=== PATIENT | female | born 1950 | race Caucasian/White ===

== ENCOUNTER → 2017-04-09 | Outpatient (CLI) | payer MEDICARE ==
[~2017-04-09] MED LIST: ACLI400A2 IH; ALBU8.5H2 IH; ALBUTEROL; ALPR1TAB2 PO; AMLO1TAB3; AMLO5TAB2 PO; AMPI500C9 PO; ARIP5TAB12 PO; ASP325T PO; ASP81CT; ATR20T PO; BUPR300T PO; CALC-80 PO; CALCIUM; CANA100T PO; CANA300T PO; CARV12.52 PO; CARV6.252 PO; CEFU250T PO; CLCX200C PO; CYCL10TA9; CYCL10TA9 PO; DEPLIN; DIAZ10TA3 PO; DIAZEPAM; DULO60CA6; DULO60CA6 PO; EST45C VG; FERR-57 PO; FISH OIL; FLUO40CA PO; FLUT1DIS26; FURO40TA4 PO; HYDR-2962 PO; HYDR-3820 PO; HYDROCODONE; IRB150T; LEVO175T6; LIRA0.6P SQ; LNS30CCR; LORA10TA7 PO; METH500T35 PO; MMT17NA; MTF500T PO; MULT1TAB12 PO; MULTIVITAMIN; MUPI22OI TP; OMEG-12 PO; PHEN-640 PO; PNT40TEC PO; POTA20TA15 PO; PRD20T PO; PREG100C22; PREG50C PO; PROP40TA5 PO; SAXA1TBM3 PO; SCR1T1; SULF1TAB35 PO; VALS320T8 PO
--- NOTE | 2017-04-09 10:52 | Diagnostic Imaging Report ---
INDICATION: Wheezing and cough. PA and lateral chest obtained at 1043 hours a.m. and compared to 03/26/2011. Heart and mediastinal silhouette are normal in appearance. The lungs are clear. There is no pneumothorax or pleural fluid. IMPRESSION: No acute process in the chest. Dictated by: Dictated on workstation # [id number]
== END ==
LOC: RAD 10:10
PROVIDERS: ATTEND Family Medicine
DX: R05 Cough (principal); R06.00 Dyspnea, unspecified
CPT/HCPCS: 71020

== ENCOUNTER 2017-07-22 17:01 | Inpatient (IN) | payer MEDICARE ==
[~2017-07-22] VITALS: Ht 167.6 cm; Wt 121.1 kg
[~2017-07-22 17:01] MED LIST changes: -ACLI400A2 IH; +ACLI400A2 INH; +RT-ALBUTEROL SULF 2.5 MG/3 ML PRE-MIX VIAL ONE
[2017-07-22] MEDS ORDERED: NS IV 500 ML 500 ML IV ONE (17:05)
[2017-07-22] MEDS ORDERED: RT-ALBUTEROL SULF 2.5 MG/3 ML PRE-MIX VIAL INH STA (17:05)
[2017-07-22] MEDS ORDERED: AZITHROMYCIN INJECTION 500 MG in NS (IVPB) 250 ML IV ONE (17:15)
--- NOTE | 2017-07-22 17:17 | ED Respiratory ---
General Stated Complaint: SOA Source: patient, EMS Exam Limitations: no limitations (ORLANDO ASHRAF) History of Present Illness Time seen by provider: 17:00 Initial Comments Patient presents to ER by EMS and EMS gives a history that they picked the patient up she was having difficulty breathing. They gave her a DuoNeb attempted multiple times for IV access and were unsuccessful. The patient was getting an entitle CO2 of 68 initially but improved down to 48 on route after getting the DuoNeb and oxygen. Patient uses 3 L nasal cannula at home and this is what she was transported in the low to mid 90s sats on. Patient was at her doctor's office today and received a flu shot. She says for the past 1-2 days she is progressively been feeling worse with shortness of air and malaise. She says she's been chilling like she is cold and no documented fevers. She denies any chest pain but is short of breath. She denies nausea, vomiting, diarrhea, constipation, rash, travel outside the [facility], sick contacts. She says she recently had her blood pressure medicine changed discontinue the Diovan but not changing her Coreg. She does not ever what medication replace the Diovan. She wears O2 at 3 L/m at home. (ORLANDO ASHRAF) Allergies and Home Medications Allergies Coded Allergies: No Known Drug Allergies (Verified , 05/08/09) Home Medications Aclidinium [place] 400 Mcg Aer.pow.ba, 400 MCG IH BID, (Reported) Albuterol 8.5 Gm Hfa.aer.ad, 2 PUFF IH q4hrs. prn, (Reported) 2 PUFFS Alprazolam 1 Mg Tablet, 1 MG PO TID, (Reported) Ampicillin Trihydrate 500 Mg Capsule, 500 MG PO QID, (Reported) Aripiprazole 5 Mg Tablet, 10 MG PO DAILY, (Reported) Aspirin 325 Mg Tab, 81 MG PO DAILY, (Reported) Atorvastatin 20 Mg Tablet, 20 MG PO HS, (Reported) Calcium Carbonate/Vitamin D3 1 Each Tablet, 600 MG PO BID, (Reported) Canagliflozin 300 Mg Tablet, 300 MG PO DAILY, (Reported) Carvedilol 12.5 Mg Tablet, 1 TAB PO BID, (Reported) Cefuroxime Axetil 250 Mg Tablet, 250 MG PO Q12H, #20 Ref 0 Prescribed by: LINDA ORELLANA on 05/06/15848 Celecoxib 200 Mg Capsule, 200 MG PO BID, (Reported) Duloxetine Hcl 60 Mg Capsule.dr, 60 MG PO BID, (Reported) Fluticasone/Salmeterol 1 Disk Inhp, 2 PUFF BID, (Reported) Furosemide 40 Mg Tablet, 40 MG PO every other day, (Reported) Hydrocodone/Acetaminophen 1 Each Tablet, 1 EACH PO QID PRN for PAIN, (Reported) Levothyroxine Sodium 175 Mcg Tablet, 150 MCG DAILY, (Reported) Liraglutide 0.6 Mg/0.1 Ml Pen.injctr, 1.8 MG SQ DAILY, (Reported) Multivitamins W-Minerals 1 Each Tablet, 1 EACH PO DAILY, (Reported) [place]-3/Dha/Epa/Fish Oil 1 Each Capsule.dr, 1,000 MG PO DAILY, (Reported) Pantoprazole Sodium 40 Mg Tablet.dr, 40 MG PO BID, #30 (Reported) Phenazopyridine HCl 200 Mg Tablet, 1 CAP PO Q8H, #5 Ref 0 Prescribed by: LINDA ORELLANA on 05/06/15848 Potassium Chloride 20 Meq Tab.prt.sr, 20 MEQ PO, (Reported) 3 TABS every other day with lasix Saxagliptin Hcl/Metformin Hcl 1 Each Tbmp.24hr, 1 EACH PO DAILY, (Reported) Sucralfate 1 Gm Tab, 1 GM BID, (Reported) Valsartan 320 Mg Tablet, 320 MG PO DAILY, (Reported) Constitutional: chills, No fever, malaise EENTM: No ear pain, No eye pain Respiratory: cough, dyspnea on exertion, No hemoptysis, No phlegm, short of breath, No stridor, wheezing Cardiovascular: No chest pain, No palpitations Gastrointestinal: No abdominal pain, No constipation, No diarrhea, No nausea, No vomiting Genitourinary: No discharge, No dysuria : No Musculoskeletal: No back pain, No joint pain Skin: No pruritus, No rash Psychiatric/Neurological: Denies Headache, Denies Numbness, Denies Paresthesia ([place] ASHRAF) Past Nxcntqu-Bjmotw-Nyodip Hx Patient Social History Alcohol Use: Denies Use Recreational Drug Use: No Smoking Status: Current Everyday Smoker Type Used: Cigarettes (0.5 ppd) (ORLANDO ASHRAF) Immunizations Up To Date Date of Pneumonia Vaccine: Dec 22, 2011 Date of Influenza Vaccine: Jul 23, 2013 (OR[place]O ASHRAF) Seasonal Allergies Seasonal Allergies: Yes (OR[place]O ASHRAF) Surgeries Surgeries: 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, Tonsillectomy, Tubal Ligation ([place]O ASHRAF) Respiratory Respiratory Disorders: Asthma, COPD (OR[place]O ASHRAF) Cardiovascular Cardiac Disorders: Hypertension ([place] ASHRAF) Gastrointestinal Gastrointestinal Disorders: Gastroesophageal Reflux, Hiatal Hernia ([place]O ASHRAF) Musculoskeletal Musculoskeletal Disorders: Degenerate Disk Disease, Arthritis, Fibromyalgia, Rheumatoid Arthritis, Chronic Back Pain (ORLANDO ASHRAF) Endocrine Endocrine Disorders: Hypothyroidsim, Diabetes, Non-Insulin dep (OR[place]O ASHRAF) Psychosocial Behavioral Health Disorders: Anxiety, Depression (ORLANDO ASHRAF) Family Medical History Significant Family History: No Pertinent Family Hx Family Medial History: Patient reports no known family medical history. ([place]O ASHRAF) Family Medial History: Patient reports no known family medical history. (LAKESHA WANG MD) Physical Exam Vital Signs Vital Sign - Last 12Hours 07/22/17 17:25 Pulse Ox 90 O2 Delivery Nasal Cannula O2 Flow Rate 3.00 (LAKESHA WANG MD) Vital Signs Capillary Refill : ([place] ASHRAF) General Appearance: moderate distress, obese Eyes: Bilateral Eye Normal Inspection, Bilateral Eye PERRL, Bilateral Eye EOMI HEENT: PERRL/EOMI, normal ENT inspection, pharynx normal Neck: non-tender, normal inspection Respiratory: chest non-tender, respiratory distress (moderate), accessory muscle use, wheezing (audible bilateral diffuse), expiration Cardiovascular: normal peripheral pulses, regular rate, rhythm, other (legs wrapped for chronic lymphedema) Gastrointestinal: normal bowel sounds, non tender, soft Extremities: normal capillary refill, No calf tenderness, swelling, other ( wrapped for lymphedema) Neurologic/Psychiatric: alert, normal mood/affect, oriented x 3 Skin: normal color, warm/dry ([place] ASHRAF) Focused Exam Evaluation Lactate Level Laboratory Tests 07/22/17 18:00: Lactic Acid Level 1.82 (LAKESHA WANG MD) Lactic Acid Level Laboratory Tests Test 07/22/17 18:00 Lactic Acid Level 1.82 MMOL/L (0.50-2.00) (LAKESHA WANG MD) Progress/Results/Core Measures Results/Orders Lab Results Laboratory Tests Test 07/22/17 17:10 07/22/17 18:00 Range/Units White Blood Count 15.2 H 4.3-11.0 10^3/uL Red Blood Count 5.33 4.35-5.85 10^6/uL Hemoglobin 13.5 11.5-16.0 G/DL Hematocrit 42 35-52 % Mean Corpuscular Volume 79 L 80-99 FL Mean Corpuscular Hemoglobin 25 25-34 PG Mean Corpuscular Hemoglobin Concent 32 32-36 G/DL Red Cell Distribution Width 21.3 H 10.0-14.5 % Platelet Count 237 130-400 10^3/uL Mean Platelet Volume 10.4 7.4-10.4 FL Neutrophils (%) (Auto) 85 H 42-75 % Lymphocytes (%) (Auto) 8 L 12-44 % Monocytes (%) (Auto) 6 0-12 % Eosinophils (%) (Auto) 1 0-10 % Basophils (%) (Auto) 0 0-10 % Neutrophils # (Auto) 12.9 H 1.8-7.8 X 10^3 Lymphocytes # (Auto) 1.2 1.0-4.0 X 10^3 Monocytes # (Auto) 0.9 0.0-1.0 X 10^3 Eosinophils # (Auto) 0.2 0.0-0.3 10^3/uL Basophils # (Auto) 0.1 0.0-0.1 10^3/uL Neutrophils % (Manual) 87 % Lymphocytes % (Manual) 6 % Monocytes % (Manual) 0 % Eosinophils % (Manual) 1 % Basophils % (Manual) 0 % Band Neutrophils 6 % Anisocytosis SLIGHT Microcytosis SLIGHT Prothrombin Time 12.2 12.2-14.7 SEC INR Comment 0.9 0.8-1.4 Activated Partial Thromboplast Time 30 24-35 SEC D-Dimer 0.72 H 0.00-0.49 UG/ML Blood Gas Puncture Site LEFT RADIAL Blood Gas Patient Temperature 101.4 Arterial Blood pH 7.37 7.37-7.43 Arterial Blood Partial Pressure CO2 48 H 35-45 MMHG Arterial Blood Partial Pressure O2 63 L 79-93 MMHG Arterial Blood HCO3 27 23-27 MMOL/L Arterial Blood Total CO2 27.8 21.0-31.0 MMOL/L Arterial Blood Oxygen Saturation 90 L 94-100 % Arterial Blood Base Excess 2.0 -2.5-2.5 MMOL/L Jovanny Test POSITIVE Blood Gas Ventilator Setting NO Blood Gas Inspired Oxygen 3L B-Type Natriuretic Peptide 23.2 <100.0 PG/ML Group A Streptococcus Screen NEGATIVE NEGATIVE Sodium Level 134 L 135-145 MMOL/L Potassium Level 4.7 3.6-5.0 MMOL/L Chloride Level 97 L 98-107 MMOL/L Carbon Dioxide Level 25 21-32 MMOL/L Anion Gap 12 5-14 MMOL/L Blood Urea Nitrogen 12 7-18 MG/DL Creatinine 0.92 0.60-1.30 MG/DL Estimat Glomerular Filtration Rate > 60 BUN/Creatinine Ratio 13 Glucose Level 145 H 70-105 MG/DL Lactic Acid Level 1.82 0.50-2.00 MMOL/L Calcium Level 9.5 8.5-10.1 MG/DL Magnesium Level 1.8 1.8-2.4 MG/DL Total Bilirubin 0.7 0.1-1.0 MG/DL Aspartate Amino Transf (AST/SGOT) 16 5-34 U/L Alanine Aminotransferase (ALT/SGPT) 15 0-55 U/L Alkaline Phosphatase 108 40-136 U/L Troponin I < 0.30 <0.30 NG/ML C-Reactive Protein High Sensitivity 1.38 H 0.00-0.50 MG/DL Total Protein 7.5 6.4-8.2 GM/DL Albumin 4.2 3.2-4.5 GM/DL (LAKESHA WANG MD) Micro Results Microbiology 07/22/17 Influenza Types A,B Antigen (SUMAN) - Final, Complete (LAKESHA WANG MD) My Orders Orders - LAKESHA WANG MD Ceftriaxone Injection (Rocephin Injectio (07/22/17 18:45) (LAKESHA WANG MD) Medications Given in ED Current Medications Medications Dose Ordered Sig/Cameron Route Start Time Stop Time Status Last Admin Dose Admin Acetaminophen 1,000 mg ONCE ONCE PO 07/22/17 17:30 07/22/17 17:31 DC 07/22/17 17:15 1,000 MG Albuterol Sulfate 2.5 mg STK-MED ONCE .ROUTE 07/22/17 16:57 07/22/17 17:06 DC 07/22/17 17:12 5 MG Sodium Chloride 500 ml @ 0 mls/hr Q0M ONCE IV 07/22/17 17:05 07/22/17 17:12 DC 07/22/17 17:15 500 MLS/HR (LAKESHA WANG MD) Vital Signs/I&O Vital Sign - Last 12Hours 07/22/17 07/22/17 17:25 17:32 Pulse Ox 90 97 O2 Delivery Nasal Cannula Nasal Cannula O2 Flow Rate 3.00 4.00 (LAKESHA WANG MD) Progress Note #1: Time: 17:21 Progress Note COPD versus pneumonia. Her temperature we'll prompt us to do a influenza and strep as well as sepsis workup. We'll start with azithromycin idea were treating probably add something like Rocephin. We'll get an ABG as of now her end-tidal CO2 was in the low 40s so she is probably doing okay without CPAP while awake. She is improving breath sounds on the albuterol. We will hold off giving steroids in case there is an overt pneumonia. We'll start her with a liter of normal saline to help with tachycardia. We'll get a BMP just to make sure she is not fluid overloaded but she appears clinically dry despite the chronic lymphedema. ABG shows mild CO2 retention 48 with out acidemia or metabolic compensation. PO2 is only 60 so it is more likely this is pneumonia than COPD so we'll hold off the steroids and increase her oxygen to 4 L nasal cannula above her baseline of 3 L nasal cannula. Progress Note #2: Time: 18:08 Progress Note Care transitioned to Dr. Wang. Patient's wheezing has improved greatly after 10 mg of albuterol however she does have crackles on the left lower lobe. The left lower lobe and the x-ray is obscured by body habitus and poor inspiratory effort. Patient says she feels a little better but still very dizzy. Her heart rate is still tachycardic so we will going give her another bolus liter of fluids for a total of 1500 MLS. (OR[place]O ASHRAF) ECG Initial ECG Impression Date: Jul 22, 2017 Initial ECG Impression Time: 17:21 Initial ECG Rate: 117 Initial ECG Rhythm: S.Tach Initial ECG Intervals: Normal Initial ECG Impression: Normal Initial ECG Comparisson: No Previous ECG Available Comment Sinus tachycardia with no T-wave elevation or depression. (OR[place]O ASHRAF) Diagnostic Imaging Diagonstic Imaging: Xray Plain Films/CT/US/NM/MRI: chest (1 view) Comments Poor respiratory effort. Left lower lobe obscured. Reviewed: Reviewed by Me (ORLANDO ASHRAF) Transfer of Care Transfer of Care Time: 18:05 Care transferred to: [facility] (OR[place] ASHRAF) Departure Communication (Admissions) Progress Notes The patient is a 66-year-old female transferred to care at [address] Ashraf. Her complaints had been shortness of breath. She had had a fever at home. She was queasy but responded to nebulizer treatments here. White count was 15,000. Chest x-ray showed central congestion or edema. Spoke to Dr. KAUFMAN at 1835. The patient will be admitted to the floor in observation status (LAKESHA WANG MD) Impression Impression: Primary Impression: pneumonia Disposition: ADMITTED INPATIENT Condition: Stable/Unchanged Admissions Decision to Admit Reason: Admit from ER (General) Decision to Admit/Date: Jul 22, 2017 Time/Decision to Admit Time: 18:52 (LAKESHA WANG MD) Departure-Patient Inst. Referrals: JUDITH KAUFMAN DO (PCP/Family) Primary Care Physician [place] ASHRAF Jul 22, 2017 17:17 LAKESHA WANG MD Jul 22, 2017 18:53
[2017-07-22 17:19] LABS: ABG HCO3 27 MMOL/L (23-27); ABG OXYGEN SATURATION 90 % (94-100); ABG PCO2 48 MMHG (35-45); ABG PH 7.37 (7.37-7.43); ABG PO2 63 MMHG (79-93); ABG TCO2 27.8 MMOL/L (21.0-31.0)
[2017-07-22 17:22] LABS: ALLENS TEST POSITIVE; BASOPHILS # (AUTO) 0.1 10^3/uL (0.0-0.1); BASOPHILS % (AUTO) 0 % (0-10); EOSINOPHILS # (AUTO) 0.2 10^3/uL (0.0-0.3); EOSINOPHILS % (AUTO) 1 % (0-10); LYMPHOCYTES # (AUTO) 1.2 X 10^3 (1.0-4.0); LYMPHOCYTES % (AUTO) 8 % (12-44); MEAN CORPUSCULAR HEMOGLOBIN 25 PG (25-34); MEAN CORPUSCULAR HGB CONC 32 G/DL (32-36); MEAN CORPUSCULAR VOLUME 79 FL (80-99); MEAN PLATELET VOLUME 10.4 FL (7.4-10.4); MONOCYTES # (AUTO) 0.9 X 10^3 (0.0-1.0); MONOCYTES % (AUTO) 6 % (0-12); NEUTROPHILS # (AUTO) 12.9 X 10^3 (1.8-7.8); NEUTROPHILS % (AUTO) 85 % (42-75); PATIENT TEMP 101.4; PLATELET COUNT 237 10^3/uL (130-400); RED BLOOD COUNT 5.33 10^6/uL (4.35-5.85); RED CELL DISTRIBUTION WIDTH 21.3 % (10.0-14.5); WHITE BLOOD COUNT 15.2 10^3/uL (4.3-11.0)
[2017-07-22] MEDS ORDERED: RT-ALBUTEROL SULF 2.5 MG/3 ML PRE-MIX VIAL IH STA (17:27)
[2017-07-22] MEDS ORDERED: ACETAMINOPHEN 500 MG TAB (TYLENOL) PO ONE (17:30)
[2017-07-22 17:51] LABS: BAND NEUTROPHILS 6 %; BASOPHILS % (MANUAL) 0 %; EOSINOPHILS % (MANUAL) 1 %; INR 0.9 (0.8-1.4); LYMPHOCYTES % (MANUAL) 6 %; NEUTROPHILS % (MANUAL) 87 %; PROTHROMBIN TIME PATIENT 12.2 SEC (12.2-14.7)
[2017-07-22 17:52] LABS: ANISOCYTOSIS SLIGHT; MICROCYTOSIS SLIGHT
--- NOTE | 2017-07-22 18:03 | Diagnostic Imaging Report ---
INDICATION: Shortness of air and cough. FINDINGS: Portable upright view of the chest demonstrates interval development of central pulmonary edema and congestion. The heart size is upper normal. No effusions are seen. IMPRESSION: There has been interval development of central pulmonary congestion and edema. Dictated by: Dictated on workstation # [id number]
[2017-07-22] MEDS ORDERED: NS IV 1000 ML 1,000 ML IV ONE (18:09)
[2017-07-22 18:35] LABS: ALANINE AMINOTRANSFERASE 15 U/L (0-55); ALBUMIN 4.2 GM/DL (3.2-4.5); ANION GAP 12 MMOL/L (5-14); ASPARTATE AMINO TRANSFERASE 16 U/L (5-34); BILIRUBIN,TOTAL 0.7 MG/DL (0.1-1.0); BLOOD UREA NITROGEN 12 MG/DL (7-18); BUN/CREATININE RATIO 13; CALCIUM 9.5 MG/DL (8.5-10.1); CARBON DIOXIDE 25 MMOL/L (21-32); CHLORIDE 97 MMOL/L (98-107); CREATININE SERUM 0.92 MG/DL (0.60-1.30); GFR ESTIMATED > 60; GLUCOSE 145 MG/DL (70-105); MAGNESIUM 1.8 MG/DL (1.8-2.4); POTASSIUM 4.7 MMOL/L (3.6-5.0); SODIUM 134 MMOL/L (135-145); TOTAL PROTEIN 7.5 GM/DL (6.4-8.2); hs C REACTIVE PROTEIN 1.38 MG/DL (0.00-0.50)
[2017-07-22 18:41] LABS: TROPONIN I < 0.30 NG/ML (<0.30)
[2017-07-22] MEDS ORDERED: cefTRIAXone INJECTION 1,000 MG in NS (IVPB) 50 ML IV ONE (18:45)
[2017-07-22 19:07] LABS: BILIRUBIN,URINE NEGATIVE (NEGATIVE); KETONES,URINE 3+ (NEGATIVE); LEUKOCYTE ESTERASE ,URINE NEGATIVE (NEGATIVE); NITRITE,URINE NEGATIVE (NEGATIVE); PH,URINE 5 (5-9); PROTEIN,URINE NEGATIVE (NEGATIVE); UROBILINOGEN,URINE NORMAL (NORMAL)
--- OUTSIDE RECORDS SUMMARY | 2017-07-22 19:13 | XMS REPORT ---
Author Author EMMIE POWELL [facility] eClinicalWorks Address Unknown Phone Unavailable Care Team Providers Care Survey Statistician Name Role Phone EMMIE POWELL CP Unavailable Allergies No Known Allergies Problems No Known Problems Medications No Known Medications Results No Known Results Summary Purpose eClinicalWorks Submission
--- OUTSIDE RECORDS SUMMARY | 2017-07-22 19:14 | XMS REPORT | Continuity of Care Document ---
Author Author [facility] Organization [facility] Address Unknown Phone Unavailable Allergies Active Description Code Type Severity Reaction Onset Reported/Identified Relationship to Patient Clinical Status Yes No Known Drug Allergies [id number] Drug Allergy Unknown N/ A 05/08/2009 Medications Problems Date Dx Coded Attending Type Code Diagnosis Diagnosed By 07/23/2014 TONY RAGLAND DO Ot 916.0 07/23/2014 TONY RAGLAND DO Ot E000.8 07/23/2014 TONY RAGLAND DO Ot E001.0 07/23/2014 TONY RAGLAND DO Ot E927.4 05/06/2015 LINDA ORELLANA DO Ot 244.9 05/06/2015 LINDA ORELLANA DO Ot 250.00 05/06/2015 LINDA ORELLANA DO Ot 401.9 05/06/2015 LINDA ORELLANA DO Ot 493.20 05/06/2015 LINDA ORELLANA DO Ot 530.81 05/06/2015 LINDA ORELLANA DO Ot 553.3 05/06/2015 LINDA ORELLANA DO Ot 599.0 05/06/2015 LINDA ORELLANA DO Ot 599.70 05/06/2015 LINDA ORELLANA DO Ot 714.0 05/06/2015 LINDA ORELLANA DO Ot 729.1 04/30/2017 JUDITH KAUFMAN DO Ot R05 COUGH 04/30/2017 JUDITH KAUFMAN DO Ot R06.00 DYSPNEA, UNSPECIFIED Procedures Results Encounters ACCT No. Visit Date/Time Discharge Status Pt. Type Provider Facility Loc./Unit Complaint [id number] 04/09/2017 10:10:00 2016 23:59:59 CLS Outpatient JUDITH KAUFMAN DO [facility] RAD COPD DYSPNEA [id number] 01/14/2017 13:57:00 2016 23:59:59 CLS Preadmit JUDITH KAUFMAN DO [facility] CARD EDEMA,CARDIAC MURMUR [id number] 05/06/2015 07:58:00 2014 09:28:00 DIS Emergency REYNA CURRANLINDA [facility] ER [id number] 07/23/2014 09:25:00 2013 09:50:00 DIS Emergency TONY RAGLAND DO [facility] ER [id number] 04/24/2014 05:11:00 2013 05:47:00 DIS Emergency [id number] 12/21/2013 11:38:00 2013 14:55:00 DIS Outpatient [id number] 12/15/2013 07:30:00 2013 23:59:59 CLS Outpatient [id number] 10/12/2013 17:29:00 2013 19:41:00 DIS Emergency [id number] 05/18/2013 06:34:00 2012 09:01:00 DIS Emergency
[2017-07-22 19:18] LABS: SQUAMOUS EPITHELIAL CELL,UR 0-2 /HPF; WBC,URINE 0-2 /HPF
[2017-07-22 19:30] VITALS: BP 125/85
[2017-07-22] MEDS ORDERED: CATHETER FLUSH 10 ML SYR IV PRN (20:00)
[2017-07-22] MEDS: NS IV 1000 ML 1,000 ML IV SCH (20:23)
[2017-07-22] MEDS ORDERED: AZITHROMYCIN 500 MG (ZITHROMAX) VIAL ONE (20:24)
[2017-07-22] MEDS ORDERED: NS (IVPB) 250 ML ONE (20:24)
[2017-07-22] MEDS ORDERED: GABA-490 PO (22:01)
[2017-07-22] MEDS ORDERED: GABA800T2 PO (22:01)
[2017-07-22] MEDS: RT-ALBUTEROL/IPRATROPIUM 3 ML (DUONEB) VIAL IH PRN (22:08)
[2017-07-22] MEDS ORDERED: ALPRAZolam 1 MG (XANAX) TAB ONE (22:08)
[2017-07-22] MEDS: HYDROcodone/APAP 5 MG/325 MG (LORTAB) TAB PO PRN (22:35)
[2017-07-22] MEDS: ALPRAZolam 1 MG (XANAX) TAB PO SCH (22:35)
[2017-07-22] MEDS: GABAPENTIN 400 MG (NEURONTIN) CAP PO SCH (23:32)
[2017-07-23] VITALS (8 sets, daily range): BP systolic 101–131; BP diastolic 51–74
[2017-07-23] MEDS: RT-ALBUTEROL/IPRATROPIUM 3 ML (DUONEB) VIAL IH PRN (03:27)
[2017-07-23] MEDS ORDERED: ACETAMINOPHEN 500 MG TAB (TYLENOL) PO PRN ×2 (04:15→05:15)
[2017-07-23] MEDS: NS IV 1000 ML 1,000 ML IV SCH ×2 (05:27→17:55)
[2017-07-23 06:45] LABS: BASOPHILS % (AUTO) 0 % (0-10); EOSINOPHILS % (AUTO) 0 % (0-10); LYMPHOCYTES # (AUTO) 0.9 X 10^3 (1.0-4.0); LYMPHOCYTES % (AUTO) 6 % (12-44); MEAN CORPUSCULAR HEMOGLOBIN 25 PG (25-34); MEAN CORPUSCULAR HGB CONC 32 G/DL (32-36); MEAN CORPUSCULAR VOLUME 80 FL (80-99); MEAN PLATELET VOLUME 10.2 FL (7.4-10.4); MONOCYTES # (AUTO) 0.7 X 10^3 (0.0-1.0); MONOCYTES % (AUTO) 4 % (0-12); NEUTROPHILS # (AUTO) 13.8 X 10^3 (1.8-7.8); NEUTROPHILS % (AUTO) 90 % (42-75); PLATELET COUNT 167 10^3/uL (130-400); RED BLOOD COUNT 4.58 10^6/uL (4.35-5.85); RED CELL DISTRIBUTION WIDTH 18.9 % (10.0-14.5); WHITE BLOOD COUNT 15.3 10^3/uL (4.3-11.0)
[2017-07-23] MEDS: RT-ALBUTEROL/IPRATROPIUM 3 ML (DUONEB) VIAL IH SCH ×4 (06:56→19:08)
[2017-07-23] MEDS: ALPRAZolam 1 MG (XANAX) TAB PO SCH (09:34)
[2017-07-23] MEDS: cefTRIAXone 1 GM/NS 50 ML IVPB IV SCH ×2 (09:35)
[2017-07-23] MEDS: AZITHROMYCIN 500 MG/NS 250 ML IVPB IV SCH ×2 (09:35)
[2017-07-23] MEDS ORDERED: RT-ALBUINH IH (10:49)
[2017-07-23] MEDS ORDERED: FLUT1DIS26 IH (10:49)
[2017-07-23] MEDS ORDERED: ATOR20TA66 PO (10:49)
[2017-07-23] MEDS ORDERED: DULO60CA58 PO (10:49)
[2017-07-23] MEDS ORDERED: ARIP10TA17 PO (10:49)
[2017-07-23] MEDS ORDERED: SAXA1TBM3 PO (10:49)
[2017-07-23] MEDS ORDERED: ALPR0.5T7 PO (10:49)
[2017-07-23] MEDS ORDERED: PANT40TA3 PO (10:49)
[2017-07-23] MEDS ORDERED: CARV12.53 PO (10:49)
[2017-07-23] MEDS ORDERED: LEVO150T6 PO (10:49)
[2017-07-23] MEDS ORDERED: ASPI-983 PO (10:58)
[2017-07-23] MEDS ORDERED: MULT-422 PO (10:58)
[2017-07-23] MEDS ORDERED: NYST15CR TP (10:58)
[2017-07-23] MEDS ORDERED: OMG1KC PO (10:58)
[2017-07-23] MEDS ORDERED: NYST60PO TP (10:58)
[2017-07-23] MEDS ORDERED: POTA20PA4 PO (11:25)
[2017-07-23] MEDS ORDERED: GABA-490 PO (11:25)
[2017-07-23] MEDS ORDERED: HYDR-3812 PO (11:25)
[2017-07-23] MEDS ORDERED: POTA20TA15 PO (11:37)
[2017-07-23] MEDS ORDERED: ALBU2.5V4 NEB (11:38)
[2017-07-23] MEDS ORDERED: FUROSEMIDE 40 MG (LASIX) TAB PO NR (12:45)
[2017-07-23] MEDS ORDERED: MAGNESIUM OXIDE (MAG-OX)400 MG TAB PO NR (12:45)
[2017-07-23] MEDS ORDERED: KCL 20 MEQ TAB (K-DUR) PO NR (12:45)
[2017-07-23] MEDS ORDERED: fluCOnazole (DIFLUCAN) 100 MG TAB PO NR (13:00)
[2017-07-23] MEDS ORDERED: PATIENT MAY USE OWN MEDS, ALL MC SCH (13:00)
[2017-07-23] MEDS ORDERED: methylPREDNISolone 125 MG (Solu-MEDROL) VIAL IVP NR (13:00)
--- NOTE | 2017-07-23 13:02 | History & Physicial ---
History of Present Illness History of Present Illness Reason for visit/HPI This is a 66 year old female with known COPD as well as recent lower extremity cellulitis who was brought to the emergency room due to worsening wheezing and shortness of air. She was found to be in an acute exacerbation with her COPD with possible early pneumonia on CXR. Her WBC count was elevated along with a fever. It was decided she should be admitted for IV antibiotics with oxygen and SVNs. Date of Admission Jul 22, 2017 at 19:08 Date Seen by Provider: Jul 23, 2017 Time Seen by Provider: 12:57 I consulted on this patient on 07/23/17 12:57 Attending Physician Hilda Coleman DO Admitting Physician Hilda Coleman DO Consult Allergies and Home Medications Allergies Coded Allergies: No Known Drug Allergies (Verified , 05/08/09) Home Medications Aclidinium [place] 400 Mcg Aer.pow.ba, 1 PUFF INH BID, (Reported) Albuterol Sulfate 1 Puff Puff, 2 PUFF IH Q4H PRN for SHORTNESS OF BREATH, ( Reported) 1 PUFF = 90 MCG Albuterol Sulfate 2.5 Mg/3 Ml Vial.neb, 2.5 MG NEB Q4H PRN for SHORTNESS OF BREATH, (Reported) Alprazolam 0.5 Mg Tablet, 0.5 MG PO TID, (Reported) Aripiprazole 10 Mg Tablet, 10 MG PO BID, (Reported) Aspirin 81 Mg Tablet.dr, 81 MG PO DAILY, (Reported) Atorvastatin Calcium 20 Mg Tablet, 20 MG PO HS, (Reported) Canagliflozin 300 Mg Tablet, 300 MG PO DAILY, (Reported) PATIENT STATES THIS IS GOING TO BE CHANGED TO [place]ARDI[place] HOWEVER HAS NOT RECEIVED THE NEW SCRIPT YET AT THIS TIME Carvedilol 12.5 Mg Tablet, 12.5 MG PO BID, (Reported) Duloxetine HCl 60 Mg Capsule.dr, 60 MG PO BID, (Reported) Fluticasone/Salmeterol 1 Each Blst.w.dev, 1 PUFF IH BID, (Reported) Furosemide 40 Mg Tablet, 40 MG PO DAILY PRN for SWELLING, (Reported) Gabapentin 400 Mg Capsule, 400 MG PO DAILY, (Reported) TAKES 400MG AM AND 800MG AT BEDTIME Gabapentin 400 Mg Capsule, 800 MG PO HS, (Reported) TAKES 400MG AM AND 800MG AT BEDTIME Hydrocodone/Acetaminophen 1 Each Tablet, 1 TAB PO TID PRN for PAIN-MODERATE, ( Reported) Levothyroxine Sodium 150 Mcg Tablet, 150 MCG PO DAILY, (Reported) Liraglutide 0.6 Mg/0.1 Ml Pen.injctr, 1.8 MG SQ DAILY, (Reported) Multivitamin with Minerals 1 Each Tablet, 1 TAB PO DAILY, (Reported) Nystatin 60 Gm Powder, TP TID, (Reported) Lyman 3 Polyunsat Fatty Acids 1,000 Mg Cap, 1,000 MG PO DAILY, (Reported) Pantoprazole Sodium 40 Mg Tablet.dr, 40 MG PO BID, (Reported) Potassium Chloride 20 Meq Tab.er.prt, 20-60 MEQ PO DAILY PRN for WHEN TAKING FUROSEMIDE, (Reported) TAKES 1 TO 3 (20MEQ) TABLETS WHEN TAKING FUROSEMIDE, # OF TABS DEPENDS ON CRAMPS Saxagliptin HCl/Metformin HCl 1 Each Tbmp.24hr, 1 TAB PO DAILY, (Reported) Past [place]-Yrotut-Ikrgbg Hx Patient Social History Alcohol Use: Past History Recreational Drug Use: No Smoking Status: Former Smoker Former Smoker, Quit: Jul 22, 2017 Type Used: Cigarettes Physical Abuse Screen: Yes Sexual Abuse: No Recent Foreign Travel: No Contact w/other who traveled: No Recent Hopitalizations: No Recent Infectious Disease Expo: No Immunizations Up To Date Pediatric: No Date of Pneumonia Vaccine: Jul 22, 2016 Date of Influenza Vaccine: Jul 22, 2017 Seasonal Allergies Seasonal Allergies: Yes Surgeries Yes 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, Tonsillectomy, Tubal Ligation Respiratory Yes Currently Using CPAP: Yes Currently Using BIPAP: No Cardiovascular Yes Hypertension Neurological No Reproductive System Sexually Transmitted Disease: No HIV/AIDS: No Female 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 History: Tubal Ligation Genitourinary Kidney Infection Gastrointestinal No Gastroesophageal Reflux, Hiatal Hernia Musculoskeletal Yes Arthritis Endocrine History of Endocrine Disorders: Yes Endocrine Disorders: Hypothyroidsim, Diabetes, Non-Insulin dep Are Your Blood Sugars Over 250: No HEENT Loss of Vision: Denies Hearing Impairment: Denies Cancer No Psychosocial History of Psychiatric Problem: No Behavioral Health Disorders: Anxiety, Depression Integumentary History of Skin or Integumenta: No Blood Transfusions History of Blood Disorders: No Adverse Reaction to a Blood Tr: No Family Medical History Significant Family History: No Pertinent Family Hx Family Hx: Diabetes mellitus 19 MOTHER FH: COPD (chronic obstructive pulmonary disease) 19 FATHER FH: heart attack 19 FATHER FH: melanoma 19 FATHER FH: stomach cancer 19 MOTHER Constitutional: fever, weakness EENTM: No see HPI, No no symptoms reported, No ear discharge, No hearing loss, No ear pain, No blurred vision, No double vision, No eye pain, No tearing, No vision loss, No dental problems, No hoarseness, No mouth pain, No mouth swelling , No epistaxis, No nose congestion, No nose pain, No throat pain, No throat swelling, No other Respiratory: cough, dyspnea on exertion, short of breath, wheezing Cardiovascular: No no symptoms reported, No see HPI, No chest pain, No edema, No Hx of Intervention, No palpitations, No syncope, No vascular heart diseas, No other Gastrointestinal: No RUQ, No LUQ, No RLQ, No LLQ, No no symptoms reported, No see HPI, No abdominal pain, No constipation, No diarrhea, No dysphagia, No hematemesis, No heartburn, No jaundice, No loss of appetite, No melena, No nausea, No vomiting, No other Genitourinary: frequency Musculoskeletal: back pain, joint pain, muscle weakness Skin: other (improving redness to LEs) Psychiatric/Neurological: Anxiety, Weakness Physical Exam Vital Signs Vital Sign - Last 12Hours 07/22/17 07/23/17 17:01 03:36 Temp 101.4 Pulse 120 Resp 28 B/P (MAP) 182/106 Pulse Ox 96 O2 Delivery Nasal Cannula O2 Flow Rate 3.00 FiO2 36 Capillary Refill : Less Than 3 Seconds General Appearance: Moderate Distress (with audible wheezing) HEENT: Normal ENT Inspection Neck: Supple Respiratory: Decreased Breath Sounds, Rhonci, Wheezing Cardiovascular: Regular Rate, Rhythm, Systolic Murmur, Gallop/S4 Gastrointestinal: Normal Bowel Sounds, Non Tender, Soft Rectal: Deferred Back: No CVA Tenderness Extremity: Non Tender, No Calf Tenderness, Pedal Edema (trace) Neurologic/Psychiatric: Alert, Oriented x3 Skin: Erythema (under pannus) Comments Laboratory Tests 07/22/17 17:10: White Blood Count 15.2H, Red Blood Count 5.33, Hemoglobin 13.5, Hematocrit 42, Mean Corpuscular Volume 79L, Mean Corpuscular Hemoglobin 25, Mean Corpuscular Hemoglobin Concent 32, Red Cell Distribution Width 21.3H, Platelet Count 237, Mean Platelet Volume 10.4, Neutrophils (%) (Auto) 85H, Lymphocytes (%) (Auto) 8L , Monocytes (%) (Auto) 6, Eosinophils (%) (Auto) 1, Basophils (%) (Auto) 0, Neutrophils # (Auto) 12.9H, Lymphocytes # (Auto) 1.2, Monocytes # (Auto) 0.9, Eosinophils # (Auto) 0.2, Basophils # (Auto) 0.1, Neutrophils % (Manual) 87, Lymphocytes % (Manual) 6, Monocytes % (Manual) 0, Eosinophils % (Manual) 1, Basophils % (Manual) 0, Band Neutrophils 6, Anisocytosis SLIGHT, Microcytosis SLIGHT, Prothrombin Time 12.2, INR Comment 0.9, Activated Partial Thromboplast Time 30, D-Dimer 0.72H, Blood Gas Puncture Site LEFT RADIAL, Blood Gas Patient Temperature 101.4, Arterial Blood pH 7.37, Arterial Blood Partial Pressure CO2 48H, Arterial Blood Partial Pressure O2 63L, Arterial Blood HCO3 27, Arterial Blood Total CO2 27.8, Arterial Blood Oxygen Saturation 90L, Arterial Blood Base Excess 2.0, Jovanny Test POSITIVE, Blood Gas Ventilator Setting NO, Blood Gas Inspired Oxygen 3L, B-Type Natriuretic Peptide 23.2, Group A Streptococcus Screen NEGATIVE 07/22/17 18:00: Sodium Level 134L, Potassium Level 4.7, Chloride Level 97L, Carbon Dioxide Level 25, Anion Gap 12, Blood Urea Nitrogen 12, Creatinine 0.92, Estimat Glomerular Filtration Rate > 60, BUN/Creatinine Ratio 13, Glucose Level 145H, Lactic Acid Level 1.82, Calcium Level 9.5, Magnesium Level 1.8, Total Bilirubin 0.7, Aspartate Amino Transf (AST/SGOT) 16, Alanine Aminotransferase (ALT/SGPT) 15, Alkaline Phosphatase 108, Troponin I < 0.30, C-Reactive Protein High Sensitivity 1.38H, Total Protein 7.5, Albumin 4.2 07/22/17 19:00: Urine Color YELLOW, Urine Clarity CLEAR, Urine pH 5, Urine Specific [place] 1.015L, Urine Protein NEGATIVE, Urine Glucose (UA) 4+H, Urine Ketones 3+H, Urine Nitrite NEGATIVE, Urine Bilirubin NEGATIVE, Urine Urobilinogen NORMAL, Urine Leukocyte Esterase NEGATIVE, Urine RBC (Auto) NEGATIVE, Urine RBC NONE, Urine WBC 0-2, Urine Squamous Epithelial Cells 0-2, Urine Crystals NONE, Urine Bacteria FEWH, Urine Casts NONE, Urine Mucus NEGATIVE, Urine Culture Indicated NO 07/23/17 05:48: Glucometer 150H 07/23/17 06:32: White Blood Count 15.3H, Red Blood Count 4.58, Hemoglobin 11.6, Hematocrit 37, Mean Corpuscular Volume 80, Mean Corpuscular Hemoglobin 25, Mean Corpuscular Hemoglobin Concent 32, Red Cell Distribution Width 18.9H, Platelet Count 167, Mean Platelet Volume 10.2, Neutrophils (%) (Auto) 90H, Lymphocytes (%) (Auto) 6L , Monocytes (%) (Auto) 4, Eosinophils (%) (Auto) 0, Basophils (%) (Auto) 0, Neutrophils # (Auto) 13.8H, Lymphocytes # (Auto) 0.9L, Monocytes # (Auto) 0.7, Eosinophils # (Auto) 0.0, Basophils # (Auto) 0.0 07/23/17 10:01: Glucometer 140H Microbiology 07/22/17 Blood Culture - Preliminary, Resulted Strep, Beta Hemolytic Group C 07/22/17 Influenza Types A,B Antigen (SUMAN) - Final, Complete Assessment/Plan Assessment and Plan 1. Pneumonia with Sepsis--Continue Rocephin/Zithromax 2. COPD with Acute Exacerbation--On oxygen, SVNs with duoneb, Add Solumedrol 3. Recent LE Cellulitis--improved 4. Tinea Cruris--start Diflucan 5. Diabetes mellitus--resume home meds and start accuchecks with SSI 6. Anxiety--resume home meds Problems: Clinical Quality Measures DVT/VTE Risk/Contraindication: Risk Factor Score Per Nursin RFS Level Per Nursing on Admit: 4+=Very High HILDA COLEMAN DO Jul 23, 2017 13:02
[2017-07-23] MEDS: ENOXAPARIN 40 MG/0.4 ML (LOVENOX) SYR SC SCH (13:55)
[2017-07-23] MEDS: ALPRAZolam 0.5 MG (XANAX) TAB PO SCH ×2 (13:56→20:15)
[2017-07-23] MEDS: inSUlin (REGULAR) HUMAN 1 UNIT/0.01 ML (CHARGE PER UNIT) SC SCH ×2 (16:00→21:44)
[2017-07-23] MEDS: MAGNESIUM OXIDE (MAG-OX)400 MG TAB PO SCH (17:55)
[2017-07-23] MEDS: methylPREDNISolone 125 MG (Solu-MEDROL) VIAL IVP SCH (17:55)
[2017-07-23] MEDS: RT-ADVAIR HFA 115/21 MCG PER PUFF IH SCH (19:09)
[2017-07-23] MEDS: DULoxetine 30 MG (CYMBALTA) CAP PO SCH (20:15)
[2017-07-23] MEDS: ATORVASTATIN 20 MG (LIPITOR) TABLET PO SCH (20:15)
[2017-07-23] MEDS: GABAPENTIN 400 MG (NEURONTIN) CAP PO SCH (20:15)
[2017-07-23] MEDS: ARIPIPRAZOLE 10 MG (ABILIFY) TAB PO SCH (20:15)
[2017-07-23] MEDS: PANTOPRAZOLE 40 MG (PROTONIX) TAB PO SCH (20:15)
[2017-07-23] MEDS: CARVEDILOL 12.5 MG (COREG) TABLET PO SCH (20:15)
[2017-07-23] MEDS ORDERED: NON-FORMULARY MEDICATION 1 EA EA (Duloxetine HCl 60 MG) PO SCH (21:00)
[2017-07-23] MEDS ORDERED: NON-FORMULARY MEDICATION 1 EA EA (Gabapentin 800 MG) PO SCH (21:00)
[2017-07-23] MEDS ORDERED: GABAPENTIN 400 MG (NEURONTIN) CAP PO SCH (21:00)
[2017-07-23] MEDS ORDERED: ACLIDINIUM BROMIDE INH SCH (21:00)
[2017-07-23] MEDS ORDERED: NON-FORMULARY MEDICATION 1 EA EA (Fluticasone/Salmeterol (Advair 250-50 Diskus) 1 PUFF) IH SCH (21:00)
[2017-07-24] VITALS (7 sets, daily range): BP systolic 100–126; BP diastolic 53–67
[2017-07-24] MEDS: NS IV 1000 ML 1,000 ML IV SCH
[2017-07-24] MEDS: methylPREDNISolone 125 MG (Solu-MEDROL) VIAL IVP SCH ×5 (00:50→23:11)
[2017-07-24] MEDS: metFORMIN XR 500 MG (GLUCOPHAGE XR) TAB PO SCH (06:19)
[2017-07-24] MEDS: LEVOTHYROXINE 150 MCG (LEVOTHROID) TAB PO SCH (06:19)
[2017-07-24] MEDS: KCL 20 MEQ TAB (K-DUR) PO SCH (06:19)
[2017-07-24] MEDS: MULTIVIT W/MINERALS TAB (THERAGRAN M) PO SCH (06:19)
[2017-07-24] MEDS: PANTOPRAZOLE 40 MG (PROTONIX) TAB PO SCH ×2 (06:19→20:47)
[2017-07-24] MEDS: inSUlin (REGULAR) HUMAN 1 UNIT/0.01 ML (CHARGE PER UNIT) SC SCH ×4 (06:19→20:47)
[2017-07-24] MEDS: HYDROcodone/APAP 5 MG/325 MG (LORTAB) TAB PO PRN (06:24)
[2017-07-24] MEDS: RT-ALBUTEROL/IPRATROPIUM 3 ML (DUONEB) VIAL IH SCH ×4 (06:47→19:46)
[2017-07-24] MEDS: UMECLIDINIUM BROMIDE (INCRUSE ELLIPTA) 7'S IH SCH (06:48)
[2017-07-24] MEDS: RT-ADVAIR HFA 115/21 MCG PER PUFF IH SCH ×2 (06:48→19:46)
[2017-07-24] MEDS ORDERED: LINAGLIPTIN (TRADJENTA) 5 MG TABLET PO SCH (07:00)
[2017-07-24 08:08] LABS: BASOPHILS % (AUTO) 0 % (0-10); EOSINOPHILS % (AUTO) 0 % (0-10); LYMPHOCYTES # (AUTO) 0.7 X 10^3 (1.0-4.0); LYMPHOCYTES % (AUTO) 8 % (12-44); MEAN CORPUSCULAR HEMOGLOBIN 25 PG (25-34); MEAN CORPUSCULAR HGB CONC 31 G/DL (32-36); MEAN CORPUSCULAR VOLUME 81 FL (80-99); MEAN PLATELET VOLUME 10.2 FL (7.4-10.4); MONOCYTES # (AUTO) 0.1 X 10^3 (0.0-1.0); MONOCYTES % (AUTO) 1 % (0-12); NEUTROPHILS # (AUTO) 7.5 X 10^3 (1.8-7.8); NEUTROPHILS % (AUTO) 91 % (42-75); PLATELET COUNT 157 10^3/uL (130-400); RED BLOOD COUNT 4.46 10^6/uL (4.35-5.85); RED CELL DISTRIBUTION WIDTH 19.1 % (10.0-14.5); WHITE BLOOD COUNT 8.3 10^3/uL (4.3-11.0)
[2017-07-24] MEDS: ALPRAZolam 0.5 MG (XANAX) TAB PO SCH ×3 (08:31→20:47)
[2017-07-24] MEDS: GABAPENTIN 400 MG (NEURONTIN) CAP PO SCH ×2 (08:31→20:47)
[2017-07-24] MEDS: ASPIRIN E.C. 81 MG (ECOTRIN) TAB PO SCH (08:31)
[2017-07-24] MEDS: DULoxetine 30 MG (CYMBALTA) CAP PO SCH ×2 (08:31→20:47)
[2017-07-24] MEDS: fluCOnazole (DIFLUCAN) 100 MG TAB PO SCH (08:31)
[2017-07-24] MEDS: CARVEDILOL 12.5 MG (COREG) TABLET PO SCH ×2 (08:31→20:47)
[2017-07-24] MEDS: FUROSEMIDE 40 MG (LASIX) TAB PO SCH (08:31)
[2017-07-24] MEDS: OMEGA 3 (FISH OIL) 1000 MG CAP PO SCH (08:31)
[2017-07-24] MEDS: MAGNESIUM OXIDE (MAG-OX)400 MG TAB PO SCH ×2 (08:31→17:35)
[2017-07-24] MEDS: ARIPIPRAZOLE 10 MG (ABILIFY) TAB PO SCH ×2 (08:32→20:47)
[2017-07-24] MEDS: AZITHROMYCIN 500 MG/NS 250 ML IVPB IV SCH ×2 (08:32)
[2017-07-24] MEDS: cefTRIAXone 1 GM/NS 50 ML IVPB IV SCH ×2 (08:32)
[2017-07-24 08:33] LABS: ALANINE AMINOTRANSFERASE 16 U/L (0-55); ALBUMIN 3.4 GM/DL (3.2-4.5); ANION GAP 10 MMOL/L (5-14); ASPARTATE AMINO TRANSFERASE 21 U/L (5-34); BILIRUBIN,TOTAL 0.4 MG/DL (0.1-1.0); BLOOD UREA NITROGEN 20 MG/DL (7-18); BUN/CREATININE RATIO 24; CALCIUM 8.7 MG/DL (8.5-10.1); CARBON DIOXIDE 24 MMOL/L (21-32); CHLORIDE 103 MMOL/L (98-107); CREATININE SERUM 0.85 MG/DL (0.60-1.30); GFR ESTIMATED > 60; GLUCOSE 300 MG/DL (70-105); POTASSIUM 4.1 MMOL/L (3.6-5.0); SODIUM 137 MMOL/L (135-145); TOTAL PROTEIN 6.3 GM/DL (6.4-8.2)
[2017-07-24] MEDS ORDERED: [UNRECOGNIZED DRUG - OTHER] PO SCH (09:00)
[2017-07-24] MEDS ORDERED: NON-FORMULARY MEDICATION 1 EA EA (Canagliflozin (Invokana) 300 MG) PO SCH (09:00)
[2017-07-24] MEDS ORDERED: NON-FORMULARY MEDICATION 1 EA EA (Liraglutide (Victoza 2-Pak) 1.8 MG) SQ SCH (09:00)
--- NOTE | 2017-07-24 12:51 | Progress Note (SOAP) ---
Subjective Date Seen by Provider: Jul 24, 2017 Time Seen by Provider: 12:47 Subjective/Events-last exam Fwup pneumonia with sepsis, COPD exacerbation, Diabetes mellitus II, Hypertension with hypotension on admit, Anxiety. Feeling little better. Still with audible wheezing. Objective Exam Vital Signs Date Time Temp Pulse Resp B/P (MAP) Pulse Ox O2 Delivery O2 Flow Rate FiO2 07/24/17 11:49 97.5 80 20 107/53 94 Nasal Cannula 3.00 07/24/17 10:44 96 Nasal Cannula 4.00 07/24/17 09:00 Nasal Cannula 3.00 07/24/17 08:00 97.5 87 20 107/53 97 Nasal Cannula 3.00 07/24/17 06:51 94 Nasal Cannula 4.00 07/24/17 04:28 97.9 83 18 120/67 93 Nasal Cannula 3.00 07/24/17 00:35 98.1 86 18 126/65 93 Nasal Cannula 3.00 07/23/17 22:12 119/59 07/23/17 21:00 Nasal Cannula 3.50 07/23/17 19:45 96.4 102 19 118/74 93 Nasal Cannula 3.00 07/23/17 19:09 91 Nasal Cannula 4.00 07/23/17 16:11 96.6 100 18 118/72 94 Nasal Cannula 3.00 07/23/17 14:08 90 Nasal Cannula 3.50 I & O 07/25/17 07:00 Intake Total 300 ml Balance 300 ml Capillary Refill : Less Than 3 SecondsLess Than 3 Seconds General Appearance: No Apparent Distress Neck: Supple Respiratory: Decreased Breath Sounds, Wheezing Cardiovascular: Regular Rate, Rhythm, Systolic Murmur, Gallop/S4 Gastrointestinal: normal bowel sounds, non tender, soft Extremity: Non Tender, No Calf Tenderness, Pedal Edema (trace) Neurologic/Psychiatric: Alert, Oriented x3 Skin: Erythema (mild to lower legs) Results Lab Laboratory Tests 07/23/17 14:36: Glucometer 135H 07/23/17 16:39: Glucometer 169H 07/23/17 20:45: Glucometer 334H 07/24/17 05:55: Glucometer 178H 07/24/17 07:49: White Blood Count 8.3, Red Blood Count 4.46, Hemoglobin 11.3L, Hematocrit 36, Mean Corpuscular Volume 81, Mean Corpuscular Hemoglobin 25, Mean Corpuscular Hemoglobin Concent 31L, Red Cell Distribution Width 19.1H, Platelet Count 157, Mean Platelet Volume 10.2, Neutrophils (%) (Auto) 91H, Lymphocytes (%) (Auto) 8L , Monocytes (%) (Auto) 1, Eosinophils (%) (Auto) 0, Basophils (%) (Auto) 0, Neutrophils # (Auto) 7.5, Lymphocytes # (Auto) 0.7L, Monocytes # (Auto) 0.1, Eosinophils # (Auto) 0.0, Basophils # (Auto) 0.0, Sodium Level 137, Potassium Level 4.1, Chloride Level 103, Carbon Dioxide Level 24, Anion Gap 10, Blood Urea Nitrogen 20H, Creatinine 0.85, Estimat Glomerular Filtration Rate > 60, BUN /Creatinine Ratio 24, Glucose Level 300H, Calcium Level 8.7, Total Bilirubin 0.4 , Aspartate Amino Transf (AST/SGOT) 21, Alanine Aminotransferase (ALT/SGPT) 16, Alkaline Phosphatase 77, Total Protein 6.3L, Albumin 3.4 07/24/17 09:38: Glucometer 385H 07/24/17 10:59: Glucometer 354H Microbiology 07/22/17 Blood Culture - Preliminary, Resulted No growth 07/22/17 Throat Culture - Final, Complete No Beta Strep isolated Assessment/Plan Assessment/Plan Assess & Plan/Chief Complaint 1. Pneumonia with Sepsis--continue abx 2. COPD exacerbation--keep solumedrol at current dose, Continue oxygen and SVNs 3. Diabetes mellitus with hyperglycemia--increase to SSI C, elevation due to steroids 4. Hypotension--improved, heplock IV and monitor BP 5. Anxiety--stable Clinical Quality Measures DVT/VTE Risk/Contraindication: Risk Factor Score Per Nursin RFS Level Per Nursing on Admit: 4+=Very High JUDITH KAUFMAN DO Jul 24, 2017 12:51
[2017-07-24] MEDS: LINAGLIPTIN (TRADJENTA) 5 MG TABLET PO SCH (13:20)
[2017-07-24] MEDS: ENOXAPARIN 40 MG/0.4 ML (LOVENOX) SYR SC SCH (13:20)
[2017-07-24] MEDS: ATORVASTATIN 20 MG (LIPITOR) TABLET PO SCH (20:47)
[2017-07-25 04:00] VITALS: BP 122/56
[2017-07-25] MEDS: MULTIVIT W/MINERALS TAB (THERAGRAN M) PO SCH (06:07)
[2017-07-25] MEDS: LINAGLIPTIN (TRADJENTA) 5 MG TABLET PO SCH (06:07)
[2017-07-25] MEDS: methylPREDNISolone 125 MG (Solu-MEDROL) VIAL IVP SCH ×2 (06:07→17:21)
[2017-07-25] MEDS: PANTOPRAZOLE 40 MG (PROTONIX) TAB PO SCH ×2 (06:08→21:18)
[2017-07-25] MEDS: inSUlin (REGULAR) HUMAN 1 UNIT/0.01 ML (CHARGE PER UNIT) SC SCH ×4 (06:08→21:34)
[2017-07-25] MEDS: KCL 20 MEQ TAB (K-DUR) PO SCH (06:08)
[2017-07-25] MEDS: metFORMIN XR 500 MG (GLUCOPHAGE XR) TAB PO SCH (06:08)
[2017-07-25] MEDS: LEVOTHYROXINE 150 MCG (LEVOTHROID) TAB PO SCH (06:10)
[2017-07-25] MEDS: RT-ADVAIR HFA 115/21 MCG PER PUFF IH SCH ×2 (07:03→20:08)
[2017-07-25] MEDS: RT-ALBUTEROL/IPRATROPIUM 3 ML (DUONEB) VIAL IH SCH ×2 (07:03→11:15)
[2017-07-25] MEDS: UMECLIDINIUM BROMIDE (INCRUSE ELLIPTA) 7'S IH SCH (07:03)
[2017-07-25 08:00] VITALS: BP 124/58
[2017-07-25] MEDS: DULoxetine 30 MG (CYMBALTA) CAP PO SCH ×2 (08:06→21:18)
[2017-07-25] MEDS: ARIPIPRAZOLE 10 MG (ABILIFY) TAB PO SCH ×2 (08:06→21:18)
[2017-07-25] MEDS: ALPRAZolam 0.5 MG (XANAX) TAB PO SCH ×3 (08:07→21:18)
[2017-07-25] MEDS: OMEGA 3 (FISH OIL) 1000 MG CAP PO SCH (08:07)
[2017-07-25] MEDS: ASPIRIN E.C. 81 MG (ECOTRIN) TAB PO SCH (08:07)
[2017-07-25] MEDS: GABAPENTIN 400 MG (NEURONTIN) CAP PO SCH ×2 (08:07→21:18)
[2017-07-25] MEDS: cefTRIAXone 1 GM/NS 50 ML IVPB IV SCH ×2 (08:07)
[2017-07-25] MEDS: FUROSEMIDE 40 MG (LASIX) TAB PO SCH (08:07)
[2017-07-25] MEDS: AZITHROMYCIN 250 MG TAB (ZITHROMAX) PO SCH (08:07)
[2017-07-25] MEDS: fluCOnazole (DIFLUCAN) 100 MG TAB PO SCH (08:07)
[2017-07-25] MEDS: MAGNESIUM OXIDE (MAG-OX)400 MG TAB PO SCH ×2 (08:07→17:20)
[2017-07-25] MEDS: CARVEDILOL 12.5 MG (COREG) TABLET PO SCH ×2 (08:07→21:33)
--- NOTE | 2017-07-25 11:00 | Progress Note (SOAP) ---
Subjective Date Seen by Provider: Jul 25, 2017 Time Seen by Provider: 10:58 Subjective/Events-last exam Fwup pneumonia with sepsis, COPD exacerbation, Diabetes mellitus II, Hypertension with hypotension on admit, Anxiety. Feeling much better. Wants to go home. Objective Exam Vital Signs Date Time Temp Pulse Resp B/P (MAP) Pulse Ox O2 Delivery O2 Flow Rate FiO2 07/25/17 08:00 97.7 88 20 124/58 97 Nasal Cannula 3.50 07/25/17 07:03 92 Nasal Cannula 4.00 07/25/17 04:00 97.2 75 18 122/56 96 Nasal Cannula 3.50 07/24/17 23:53 97.2 72 18 118/57 95 Nasal Cannula 3.50 07/24/17 21:00 Nasal Cannula 3.50 07/24/17 20:00 97.1 80 16 114/55 98 07/24/17 19:46 96 Nasal Cannula 4.00 07/24/17 16:32 97.5 84 16 100/65 95 07/24/17 15:49 92 Nasal Cannula 4.00 07/24/17 11:49 97.5 80 20 107/53 94 Nasal Cannula 3.00 Capillary Refill : Less Than 3 SecondsLess Than 3 Seconds General Appearance: No Apparent Distress Neck: Supple Respiratory: Decreased Breath Sounds, Wheezing (faint) Cardiovascular: Regular Rate, Rhythm Gastrointestinal: normal bowel sounds, non tender, soft Extremity: Non Tender, No Calf Tenderness, Pedal Edema Neurologic/Psychiatric: Alert, Oriented x3 Skin: Erythema (minimal to lower shins bilaterally) Results Lab Laboratory Tests 07/24/17 10:59: Glucometer 354H 07/24/17 16:44: Glucometer 282H 07/24/17 20:41: Glucometer 290H 07/25/17 05:11: Glucometer 244H Microbiology 07/22/17 Blood Culture - Preliminary, Resulted No growth 07/22/17 Throat Culture - Final, Complete No Beta Strep isolated Assessment/Plan Assessment/Plan Assess & Plan/Chief Complaint 1. Pneumonia with Sepsis--continue abx 2. COPD exacerbation--wean solumedrol dose, Continue oxygen and SVNs 3. Diabetes mellitus with hyperglycemia--worsened due to IV solumedrol, continue SSI C 4. Hypotension--improved, monitor BP 5. Anxiety--stable Clinical Quality Measures DVT/VTE Risk/Contraindication: Risk Factor Score Per Nursin RFS Level Per Nursing on Admit: 4+=Very High JUDITH KAUFMAN DO Jul 25, 2017 11:00
[2017-07-25 11:15] VITALS: BP 124/58
[2017-07-25 12:00] VITALS: BP 126/59
[2017-07-25] MEDS: ENOXAPARIN 40 MG/0.4 ML (LOVENOX) SYR SC SCH (12:08)
[2017-07-25] MEDS ORDERED: RT-ALBUTEROL/IPRATROPIUM 3 ML (DUONEB) VIAL IH PRN (14:00)
[2017-07-25] MEDS: RT-ALBUTEROL/IPRATROPIUM 3 ML (DUONEB) VIAL INH SCH ×4 (14:37→22:15)
[2017-07-25] MEDS ORDERED: RT-ALBUTEROL/IPRATROPIUM 3 ML (DUONEB) VIAL INH PRN (16:00)
[2017-07-25 16:10] VITALS: BP 119/78
[2017-07-25] MEDS: ATORVASTATIN 20 MG (LIPITOR) TABLET PO SCH (21:18)
[2017-07-26] VITALS: BP 104/68
[2017-07-26] MEDS: methylPREDNISolone 125 MG (Solu-MEDROL) VIAL IVP SCH ×2 (06:38→17:29)
[2017-07-26] MEDS: KCL 20 MEQ TAB (K-DUR) PO SCH (06:41)
[2017-07-26] MEDS: LEVOTHYROXINE 150 MCG (LEVOTHROID) TAB PO SCH (06:41)
[2017-07-26] MEDS: PANTOPRAZOLE 40 MG (PROTONIX) TAB PO SCH ×2 (06:41→22:07)
[2017-07-26] MEDS: LINAGLIPTIN (TRADJENTA) 5 MG TABLET PO SCH (06:41)
[2017-07-26] MEDS: metFORMIN XR 500 MG (GLUCOPHAGE XR) TAB PO SCH (06:41)
[2017-07-26] MEDS: MULTIVIT W/MINERALS TAB (THERAGRAN M) PO SCH (06:42)
[2017-07-26] MEDS: inSUlin (REGULAR) HUMAN 1 UNIT/0.01 ML (CHARGE PER UNIT) SC SCH ×4 (06:47→22:08)
[2017-07-26] MEDS: RT-ADVAIR HFA 115/21 MCG PER PUFF IH SCH ×2 (06:59→18:30)
[2017-07-26] MEDS: UMECLIDINIUM BROMIDE (INCRUSE ELLIPTA) 7'S IH SCH (06:59)
[2017-07-26] MEDS: RT-ALBUTEROL/IPRATROPIUM 3 ML (DUONEB) VIAL INH SCH ×5 (06:59→22:26)
[2017-07-26 08:00] VITALS: BP 132/62
[2017-07-26] MEDS: FUROSEMIDE 40 MG (LASIX) TAB PO SCH (08:17)
[2017-07-26] MEDS: ASPIRIN E.C. 81 MG (ECOTRIN) TAB PO SCH (08:17)
[2017-07-26] MEDS: ALPRAZolam 0.5 MG (XANAX) TAB PO SCH ×3 (08:17→22:07)
[2017-07-26] MEDS: ARIPIPRAZOLE 10 MG (ABILIFY) TAB PO SCH ×2 (08:17→22:08)
[2017-07-26] MEDS: OMEGA 3 (FISH OIL) 1000 MG CAP PO SCH (08:17)
[2017-07-26] MEDS: fluCOnazole (DIFLUCAN) 100 MG TAB PO SCH (08:17)
[2017-07-26] MEDS: AZITHROMYCIN 250 MG TAB (ZITHROMAX) PO SCH (08:17)
[2017-07-26] MEDS: MAGNESIUM OXIDE (MAG-OX)400 MG TAB PO SCH ×2 (08:17→17:29)
[2017-07-26] MEDS: GABAPENTIN 400 MG (NEURONTIN) CAP PO SCH ×2 (08:17→22:07)
[2017-07-26] MEDS: CARVEDILOL 12.5 MG (COREG) TABLET PO SCH ×2 (08:17→22:07)
[2017-07-26] MEDS: DULoxetine 30 MG (CYMBALTA) CAP PO SCH ×2 (08:17→22:06)
[2017-07-26] MEDS: cefTRIAXone 1 GM/NS 50 ML IVPB IV SCH ×2 (08:18)
[2017-07-26 08:59] LABS: BASOPHILS % (AUTO) 0 % (0-10); EOSINOPHILS % (AUTO) 0 % (0-10); LYMPHOCYTES # (AUTO) 1.1 X 10^3 (1.0-4.0); LYMPHOCYTES % (AUTO) 12 % (12-44); MEAN CORPUSCULAR HEMOGLOBIN 26 PG (25-34); MEAN CORPUSCULAR HGB CONC 32 G/DL (32-36); MEAN CORPUSCULAR VOLUME 81 FL (80-99); MEAN PLATELET VOLUME 10.2 FL (7.4-10.4); MONOCYTES # (AUTO) 0.5 X 10^3 (0.0-1.0); MONOCYTES % (AUTO) 6 % (0-12); NEUTROPHILS # (AUTO) 7.1 X 10^3 (1.8-7.8); NEUTROPHILS % (AUTO) 82 % (42-75); PLATELET COUNT 204 10^3/uL (130-400); RED BLOOD COUNT 4.67 10^6/uL (4.35-5.85); RED CELL DISTRIBUTION WIDTH 19.6 % (10.0-14.5); WHITE BLOOD COUNT 8.6 10^3/uL (4.3-11.0)
[2017-07-26 09:15] LABS: ALBUMIN 3.6 GM/DL (3.2-4.5); BILIRUBIN,TOTAL 0.3 MG/DL (0.1-1.0); CALCIUM 8.9 MG/DL (8.5-10.1); CREATININE SERUM 1.01 MG/DL (0.60-1.30); POTASSIUM 4.6 MMOL/L (3.6-5.0); TOTAL PROTEIN 6.6 GM/DL (6.4-8.2)
[2017-07-26] MEDS: ENOXAPARIN 40 MG/0.4 ML (LOVENOX) SYR SC SCH (12:40)
--- NOTE | 2017-07-26 14:17 | Progress Note-Hospitalist ---
Standard Progress Note Progress Notes/Assess & Plan Date Seen 07/26/17 Time Seen by Provider: 14:13 Assess & Plan/Chief Complaint The patient is a 66-year-old white female known to me. She was admitted from the emergency room in the early childhood of 07/22. She has chronic Lung disease. She uses oxygen continuously at home. She is able to walk about her home and provides self care. She is not able to do other common things such as shop for groceries. On presentation on 07/22 she had a temperature of 101.4 and x-ray findings ambivalent for either pneumonia or bihilar pulmonary edema. She has improved steadily and states she believes she is now at her baseline level. Her white blood count has dropped from 15,000 to 8000 and she is afebrile. Physical exam shows her to be comfortable at rest and able to speak in complete sentences. Breath sounds are distant without rales or rhonchi or wheezing. Ankles show no pedal edema. Impression: 1.pneumonia resolving. 2.severe COPD requiring continuous oxygen at home Plan: Consider discharge in a.m. Labs Laboratory Tests 07/26/17 08:37 LAKESHA WANG MD Jul 26, 2017 14:17
[2017-07-26 16:00] VITALS: BP 137/66
[2017-07-26 17:05] VITALS: BP 137/66
[2017-07-26] MEDS: ATORVASTATIN 20 MG (LIPITOR) TABLET PO SCH (22:08)
[2017-07-27] VITALS: BP 125/69
[2017-07-27] MEDS: RT-ALBUTEROL/IPRATROPIUM 3 ML (DUONEB) VIAL INH SCH ×6 (02:41→21:47)
[2017-07-27] MEDS: RT-ADVAIR HFA 115/21 MCG PER PUFF IH SCH ×2 (06:46→18:16)
[2017-07-27] MEDS: UMECLIDINIUM BROMIDE (INCRUSE ELLIPTA) 7'S IH SCH (06:46)
[2017-07-27] MEDS: KCL 20 MEQ TAB (K-DUR) PO SCH (06:51)
[2017-07-27] MEDS: LEVOTHYROXINE 150 MCG (LEVOTHROID) TAB PO SCH (06:52)
[2017-07-27] MEDS: PANTOPRAZOLE 40 MG (PROTONIX) TAB PO SCH ×2 (06:52→22:07)
[2017-07-27] MEDS: metFORMIN XR 500 MG (GLUCOPHAGE XR) TAB PO SCH (06:52)
[2017-07-27] MEDS: MULTIVIT W/MINERALS TAB (THERAGRAN M) PO SCH (06:52)
[2017-07-27] MEDS: methylPREDNISolone 125 MG (Solu-MEDROL) VIAL IVP SCH ×2 (06:52→17:16)
[2017-07-27] MEDS: LINAGLIPTIN (TRADJENTA) 5 MG TABLET PO SCH (06:52)
[2017-07-27] MEDS: inSUlin (REGULAR) HUMAN 1 UNIT/0.01 ML (CHARGE PER UNIT) SC SCH ×4 (06:53→22:06)
[2017-07-27 08:00] VITALS: BP 143/67
[2017-07-27] MEDS: AZITHROMYCIN 250 MG TAB (ZITHROMAX) PO SCH (08:39)
[2017-07-27] MEDS: DULoxetine 30 MG (CYMBALTA) CAP PO SCH ×2 (08:39→22:07)
[2017-07-27] MEDS: GABAPENTIN 400 MG (NEURONTIN) CAP PO SCH ×2 (08:39→22:07)
[2017-07-27] MEDS: ARIPIPRAZOLE 10 MG (ABILIFY) TAB PO SCH ×2 (08:39→22:08)
[2017-07-27] MEDS: CARVEDILOL 12.5 MG (COREG) TABLET PO SCH ×2 (08:39→22:08)
[2017-07-27] MEDS: ALPRAZolam 0.5 MG (XANAX) TAB PO SCH ×3 (08:39→22:11)
[2017-07-27] MEDS: cefTRIAXone 1 GM/NS 50 ML IVPB IV SCH ×2 (08:39)
[2017-07-27] MEDS: OMEGA 3 (FISH OIL) 1000 MG CAP PO SCH (08:39)
[2017-07-27] MEDS: ASPIRIN E.C. 81 MG (ECOTRIN) TAB PO SCH (08:39)
[2017-07-27] MEDS: FUROSEMIDE 40 MG (LASIX) TAB PO SCH (08:39)
[2017-07-27] MEDS: fluCOnazole (DIFLUCAN) 100 MG TAB PO SCH (08:39)
[2017-07-27] MEDS: MAGNESIUM OXIDE (MAG-OX)400 MG TAB PO SCH ×2 (08:40→17:16)
[2017-07-27] MEDS: ENOXAPARIN 40 MG/0.4 ML (LOVENOX) SYR SC SCH (12:12)
--- NOTE | 2017-07-27 15:42 | Progress Note-Hospitalist ---
Standard Progress Note Progress Notes/Assess & Plan Date Seen 07/27/17 Time Seen by Provider: 15:37 Assess & Plan/Chief Complaint The patient reports she feels okay but not as perky as yesterday. She has had no fever since 07/23. Her exercise tolerance remains quite limited. Her white count has fallen from a high of 15,300-8600. Her appetite has been adequate. Physical exam: She is sitting in a chair at the bedside. She appears slightly more dyspneic at rest today than she did yesterday. There is a wet cough. Breath sounds are distant. CV is regular without murmur. Extremities show bilateral Stanislaw wraps over the lower legs. Impression: Pneumonia. COPD with chronic oxygen requirements. Plan: Continue present measures. To anticipate discharge tomorrow. Labs Laboratory Tests 07/26/17 08:37 LAKESHA WANG MD Jul 27, 2017 15:42
[2017-07-27 16:00] VITALS: BP 141/82
[2017-07-27] MEDS: HYDROcodone/APAP 5 MG/325 MG (LORTAB) TAB PO PRN (17:16)
[2017-07-27] MEDS: ATORVASTATIN 20 MG (LIPITOR) TABLET PO SCH (22:07)
[2017-07-28] VITALS: BP 121/59
[2017-07-28] MEDS: RT-ALBUTEROL/IPRATROPIUM 3 ML (DUONEB) VIAL INH SCH ×3 (02:40→11:21)
[2017-07-28] MEDS: PANTOPRAZOLE 40 MG (PROTONIX) TAB PO SCH (06:23)
[2017-07-28] MEDS: KCL 20 MEQ TAB (K-DUR) PO SCH (06:23)
[2017-07-28] MEDS: MULTIVIT W/MINERALS TAB (THERAGRAN M) PO SCH (06:23)
[2017-07-28] MEDS: LEVOTHYROXINE 150 MCG (LEVOTHROID) TAB PO SCH (06:24)
[2017-07-28] MEDS: LINAGLIPTIN (TRADJENTA) 5 MG TABLET PO SCH (06:24)
[2017-07-28] MEDS: inSUlin (REGULAR) HUMAN 1 UNIT/0.01 ML (CHARGE PER UNIT) SC SCH ×2 (06:24→11:25)
[2017-07-28] MEDS: metFORMIN XR 500 MG (GLUCOPHAGE XR) TAB PO SCH (06:24)
[2017-07-28] MEDS ORDERED: predniSONE 20 MG TAB PO SCH (07:00)
[2017-07-28] MEDS: RT-ADVAIR HFA 115/21 MCG PER PUFF IH SCH (07:40)
[2017-07-28] MEDS: UMECLIDINIUM BROMIDE (INCRUSE ELLIPTA) 7'S IH SCH (07:40)
[2017-07-28 08:00] VITALS: BP 159/73
[2017-07-28] MEDS: ARIPIPRAZOLE 10 MG (ABILIFY) TAB PO SCH (08:42)
[2017-07-28] MEDS: DULoxetine 30 MG (CYMBALTA) CAP PO SCH (08:42)
[2017-07-28] MEDS: FUROSEMIDE 40 MG (LASIX) TAB PO SCH (08:43)
[2017-07-28] MEDS: CARVEDILOL 12.5 MG (COREG) TABLET PO SCH (08:43)
[2017-07-28] MEDS: OMEGA 3 (FISH OIL) 1000 MG CAP PO SCH (08:43)
[2017-07-28] MEDS: GABAPENTIN 400 MG (NEURONTIN) CAP PO SCH (08:43)
[2017-07-28] MEDS: ALPRAZolam 0.5 MG (XANAX) TAB PO SCH ×2 (08:43→13:34)
[2017-07-28] MEDS: MAGNESIUM OXIDE (MAG-OX)400 MG TAB PO SCH (08:43)
[2017-07-28] MEDS: ASPIRIN E.C. 81 MG (ECOTRIN) TAB PO SCH (08:43)
[2017-07-28] MEDS: cefTRIAXone 1 GM/NS 50 ML IVPB IV SCH ×2 (08:44)
[2017-07-28] MEDS: fluCOnazole (DIFLUCAN) 100 MG TAB PO SCH (08:53)
[2017-07-28] MEDS ORDERED: CEFD300C3 PO (12:51)
[2017-07-28] MEDS ORDERED: FLUC100T6 PO (12:51)
[2017-07-28] MEDS ORDERED: PRD20T PO (12:51)
--- NOTE | 2017-07-28 12:52 | Discharge Inst-Simple/Standard ---
Discharge Inst-Standard Discharge Medications New, Converted or Re-Newed RX: Transmitted to Pharmacy Patient Instructions/Follow Up Plan of Care/Instructions/FU: Fwup 1 week Activity as Tolerated: Yes Discharge Diet: ADA Diet, Cardiac Diet JUDITH KAUFMAN DO Jul 28, 2017 12:52
[2017-07-28] MEDS: ENOXAPARIN 40 MG/0.4 ML (LOVENOX) SYR SC SCH (13:34)
--- NOTE | 2017-07-28 13:35 | Discharge Summary ---
Diagnosis/Chief Complaint Date of Admission Jul 23, 2017 at 12:49 pm Date of Discharge Discharge Date: Jul 28, 2017 Admission Diagnosis Admission Diagnosis 1. Pneumonia with Sepsis--Continue Rocephin/Zithromax 2. COPD with Acute Exacerbation--On oxygen, SVNs with duoneb, Add Solumedrol 3. Recent LE Cellulitis--improved 4. Tinea Cruris--start Diflucan 5. Diabetes mellitus--resume home meds and start accuchecks with SSI 6. Anxiety--resume home meds Discharge Diagnosis 1. Pneumonia with Sepsis--improved 2. COPD with Acute Exacerbation--improved 3. Recent LE Cellulitis--improved 4. Tinea Cruris--improving 5. Diabetes mellitus, II--exacerbated in hospital due to steroids 6. Anxiety--stable 7. Hypotension--resolved 8. Hypertension--stable back on Coreg 9. Weakness--improved Reason Hospital Visit This is a 66 year old female with known COPD as well as recent lower extremity cellulitis who was brought to the emergency room due to worsening wheezing and shortness of air. She was found to be in an acute exacerbation with her COPD with possible early pneumonia on CXR. Her WBC count was elevated along with a fever. It was decided she should be admitted for IV antibiotics with oxygen and SVNs. Discharge Summary Hospital Course Hospital Course This is a 66 year old female with known COPD as well as recent lower extremity cellulitis who was brought to the emergency room due to worsening wheezing and shortness of air. She was found to be in an acute exacerbation with her COPD with possible early pneumonia on CXR. Her WBC count was elevated along with a fever. It was decided she should be admitted for IV antibiotics with oxygen and SVNs. Her blood cultures did grow out Strep so she was continued on Rocephin and Zithromax. She had to be placed on IV solumedrol as well do to ongoing wheezing and shortness of air. Her blood sugar did spike to the 500s after the addition of the solumedrol but this was managed with high dose sliding scale insulin. After 2 days of higher dose solumedrol, her dose was able to be weaned and she has been weaned to prednisone prior to discharge. She was also placed on routine lasix with potassium during her hospital stay for fluid retention and fluid overload. She was initially hypotensive so her blood pressure medicaitons were held but her coreg was restarted after her blood pressure and pulse meli after IVF rehydration and treatment of her sepsis. She was noted to have excessive yeast in her pannus and groin area and this was treated with oral diflucan and topical nystatin powder. By the time of discharge, she had no further wheezing or cough, she was afebrile, she was much stronger and was ambulating on her own. It was decided she could be discharged home on oral prednisone and oral antibiotics. Labs Laboratory Tests 07/25/17 16:09: Glucometer 228H 07/25/17 21:14: Glucometer 360H 07/26/17 06:27: Glucometer 171H 07/26/17 08:37: Red Cell Distribution Width 19.6H, Neutrophils (%) (Auto) 82H, Sodium Level 134L , Blood Urea Nitrogen 36H, Glucose Level 256H 07/26/17 11:12: Glucometer 201H 07/26/17 17:08: Glucometer 231H 07/26/17 21:07: Glucometer 303H 07/27/17 05:50: Glucometer 222H 07/27/17 11:34: Glucometer 218H 07/27/17 16:26: Glucometer 219H 07/27/17 21:19: Glucometer 407*H 07/27/17 21:39: Glucometer 476*H 07/28/17 05:18: Glucometer 167H 07/28/17 11:02: Glucometer 196H Procedures None. Discharge Physical Examination Allergies: Coded Allergies: No Known Drug Allergies (Verified , 05/08/09) Vitals & I&Os Vital Signs Date Time Temp Pulse Resp B/P (MAP) Pulse Ox O2 Delivery O2 Flow Rate FiO2 07/28/17 11:23 90 Nasal Cannula 2.00 07/28/17 08:00 98.0 75 18 159/73 07/25/17 11:15 36 General Appearance: Alert, Oriented X3, Cooperative, No Acute Distress Respiratory: Clear to Auscultation Cardiovascular: Regular Rate Extremities: No Clubbing, No Cyanosis, No Edema Neuro: Normal Gait Psych/Mental Status: Mental Status NL, Mood NL Discharge Home Medications Reviewed and agree with Discharge Medication list on patient's Discharge Instruction sheet Instructions to Patient/Family Please see electronic discharge instructions given to patient. Clinical Quality Measures DVT/VTE Risk/Contraindication: Risk Factor Score Per Nursin RFS Level Per Nursing on Admit: 4+=Very High JUDITH KAUFMAN DO Jul 28, 2017 1:35 pm
[2017-07-28 14:44] VITALS: BP 159/73
== END 2017-07-28 14:35 | disposition home or self-care (01) | DRG 871 ==
LOC: EDUNIT# 17:01 → ER 17:02 → 4TH 19:08 → UNDOADMOB 19:08 → 4TH 19:30 → OBSVTOIN 07-23 12:48 → INTOOBSV 07-23 12:48 → OBSVTOIN 07-23 12:49
PROVIDERS: ADMIT Family Medicine; ATTEND Family Medicine
DX: A41.9 Sepsis, unspecified organism (principal); J18.9 Pneumonia, unspecified organism; J44.1 Chronic obstructive pulmonary disease with (acute) exacerbation; L03.115 Cellulitis of right lower limb; L03.116 Cellulitis of left lower limb; E11.65 Type 2 diabetes mellitus with hyperglycemia; T38.0X5A Adverse effect of glucocorticoids and synthetic analogues, initial encounter; I89.0 Lymphedema, not elsewhere classified; B35.6 Tinea cruris; F41.9 Anxiety disorder, unspecified; F32.9 Major depressive disorder, single episode, unspecified; J30.2 Other seasonal allergic rhinitis; I10 Essential (primary) hypertension; K21.9 Gastro-esophageal reflux disease without esophagitis; K44.9 Diaphragmatic hernia without obstruction or gangrene; M19.91 Primary osteoarthritis, unspecified site; M79.7 Fibromyalgia; F17.210 Nicotine dependence, cigarettes, uncomplicated; M06.9 Rheumatoid arthritis, unspecified; M54.9 Dorsalgia, unspecified; E03.9 Hypothyroidism, unspecified; R60.9 Edema, unspecified; B95.5 Unspecified streptococcus as the cause of diseases classified elsewhere; Z79.84 Long term (current) use of oral hypoglycemic drugs; Z99.81 Dependence on supplemental oxygen
CPT/HCPCS: 36415; 71010; 80053; 81000; 82805; 82962; 83605; 83735; 83880; 84484; 85007; 85025; 85027; 85379; 85610; 85730; 86141; 87040; 87077; 87430; 87804; 93005; 94640; 94760; 96361; 96374; G0378

== ENCOUNTER → 2017-10-29 | Outpatient (CLI) | payer MEDICARE ==
[~2017-10-29] MED LIST changes: +ACHD5005 PO; +ALBU2.5V4 NEB; +ALPR0.5T7 PO; +ARIP10TA17 PO; +ASPI-983 PO; +ATOR20TA66 PO; +CARV12.53 PO; +CEFD300C3 PO; +DULO60CA58 PO; +FLUC100T6 PO; +FLUT1DIS26 IH; +GABA-490 PO; +GABA800T2 PO; +LEVO150T6 PO; +MULT-422 PO; +NYST15CR TP; +NYST60PO TP; +OMG1KC PO; +PANT40TA3 PO; +POTA20PA4 PO; +RT-ALBUINH IH; -RT-ALBUTEROL SULF 2.5 MG/3 ML PRE-MIX VIAL ONE
== END ==
LOC: WOUNDCARE 13:39
PROVIDERS: ATTEND Surgery
DX: L03.115 Cellulitis of right lower limb (principal); L03.116 Cellulitis of left lower limb; I89.0 Lymphedema, not elsewhere classified; E11.628 Type 2 diabetes mellitus with other skin complications; I70.203 Unspecified atherosclerosis of native arteries of extremities, bilateral legs
CPT/HCPCS: 99214

== ENCOUNTER → 2017-11-03 | Outpatient (CLI) | payer MEDICARE | LOC: WOUNDCARE 14:00 | PROVIDERS: ATTEND Surgery | DX: L30.4 Erythema intertrigo (principal); L03.115 Cellulitis of right lower limb; L03.116 Cellulitis of left lower limb; I89.0 Lymphedema, not elsewhere classified ==

== ENCOUNTER → 2017-11-12 | Outpatient (CLI) | payer MEDICARE | LOC: WOUNDCARE 13:09 | PROVIDERS: ATTEND Surgery | DX: L03.115 Cellulitis of right lower limb (principal); L03.116 Cellulitis of left lower limb; I89.0 Lymphedema, not elsewhere classified ==

== ENCOUNTER 2017-11-19 09:40 | Outpatient (RCR) | payer MEDICARE, OTHER | END 2017-12-17 14:54 | disposition home or self-care (01) | PROVIDERS: ATTEND Surgery | DX: I89.0 Lymphedema, not elsewhere classified (principal); L03.115 Cellulitis of right lower limb; L03.116 Cellulitis of left lower limb ==

== ENCOUNTER 2017-12-20 11:05 | Inpatient (IN) | payer MEDICARE ==
[~2017-12-20] VITALS: Ht 121.9 cm; Wt 117.0 kg
[2017-12-20] MEDS ORDERED: RT-IPRATROPIUM (ATROVENT) 0.5MG/2.5ML AMP IH ONE (11:11)
[2017-12-20] MEDS ORDERED: RT-ALBUTEROL SULF 2.5 MG/3 ML PRE-MIX VIAL ONE (11:11)
[2017-12-20] MEDS ORDERED: DEXAMETHASONE 4 MG/ML SDV (DECADRON) ONE (11:11)
[2017-12-20 11:32] LABS: BASOPHILS % (AUTO) 0 % (0-10); EOSINOPHILS # (AUTO) 0.2 10^3/uL (0.0-0.3); EOSINOPHILS % (AUTO) 1 % (0-10); HEMATOCRIT 44 % (35-52); LYMPHOCYTES # (AUTO) 1.3 X 10^3 (1.0-4.0); LYMPHOCYTES % (AUTO) 7 % (12-44); MEAN CORPUSCULAR HEMOGLOBIN 28 PG (25-34); MEAN CORPUSCULAR HGB CONC 32 G/DL (32-36); MEAN CORPUSCULAR VOLUME 86 FL (80-99); MEAN PLATELET VOLUME 10.3 FL (7.4-10.4); MONOCYTES # (AUTO) 1.3 X 10^3 (0.0-1.0); MONOCYTES % (AUTO) 7 % (0-12); NEUTROPHILS # (AUTO) 14.9 X 10^3 (1.8-7.8); NEUTROPHILS % (AUTO) 84 % (42-75); PLATELET COUNT 211 10^3/uL (130-400); RED BLOOD COUNT 5.09 10^6/uL (4.35-5.85); RED CELL DISTRIBUTION WIDTH 15.8 % (10.0-14.5); WHITE BLOOD COUNT 17.6 10^3/uL (4.3-11.0)
[2017-12-20 11:43] LABS: PROTHROMBIN TIME PATIENT 13.3 SEC (12.2-14.7)
[2017-12-20 11:43] LABS: ABG BASE EXCESS 6.3 MMOL/L (-2.5-2.5); ABG OXYGEN SATURATION 95 % (94-100); ABG PCO2 45 MMHG (35-45); ABG PH 7.44 (7.37-7.43); ABG PO2 65 MMHG (79-93); ABG TCO2 31.8 MMOL/L (21.0-31.0)
[2017-12-20 11:44] LABS: ALLENS TEST YES-POS; INSPIRED O2 2; PATIENT TEMP 99.1
[2017-12-20 11:51] LABS: ALANINE AMINOTRANSFERASE 22 U/L (0-55); ALBUMIN 4.4 GM/DL (3.2-4.5); ALKALINE PHOSPHATASE 92 U/L (40-136); BUN/CREATININE RATIO 15; CALCIUM 9.7 MG/DL (8.5-10.1); CARBON DIOXIDE 30 MMOL/L (21-32); CHLORIDE 92 MMOL/L (98-107); CREATINE KINASE 20 U/L (29-168); CREATININE SERUM 0.85 MG/DL (0.60-1.30); GFR ESTIMATED > 60; GLUCOSE 183 MG/DL (70-105); SODIUM 135 MMOL/L (135-145); TOTAL PROTEIN 7.2 GM/DL (6.4-8.2)
[2017-12-20 12:00] LABS: CREATINE KINASE MB 0.4 NG/ML (<6.6)
[2017-12-20 12:01] LABS: BASOPHILS % (MANUAL) 1 %; LYMPHOCYTES % (MANUAL) 7 %; MONOCYTES % (MANUAL) 4 %; NEUTROPHILS % (MANUAL) 84 %; RBC MORPH NORMAL; REACTIVE LYMPHOCYTES 4 %
[2017-12-20 12:15] LABS: BILIRUBIN,URINE NEGATIVE (NEGATIVE); CLARITY,URINE CLEAR; COLOR,URINE YELLOW; GLUCOSE, URINE (UA) 4+ (NEGATIVE); KETONES,URINE 2+ (NEGATIVE); LEUKOCYTE ESTERASE ,URINE NEGATIVE (NEGATIVE); NITRITE,URINE NEGATIVE (NEGATIVE); PH,URINE 8 (5-9); PROTEIN,URINE NEGATIVE (NEGATIVE); UROBILINOGEN,URINE NORMAL (NORMAL)
--- NOTE | 2017-12-20 12:30 | Diagnostic Imaging Report ---
Procedure: Portable erect AP chest at 12:09 Indication: Chest pain. Findings: The borderline cardiomegaly noted on the prior exam of 07/22/2017 is again evident. The central pulmonary vascular is not as striking as on the prior study. At this time there is no evidence for pulmonary congestion. There is no sign of pneumonia although the right lung base is difficult to assess due to the elevated right hemidiaphragm. The mediastinum is not widened. The osseous structures are intact. Impression: 1. There is borderline cardiomegaly but there is no evidence for an acute cardiopulmonary abnormality. 2. The right lung base is not well evaluated. If further study is desired, then a followup PA and lateral chest would be recommended. Dictated by: Dictated on workstation # [id number]
[2017-12-20 12:34] LABS: RBC,URINE RARE /HPF
[2017-12-20 12:35] LABS: BACTERIA,URINE TRACE /HPF
[2017-12-20] MEDS ORDERED: NS 100 ML (IVPB) BAG IV ONE (13:00)
[2017-12-20] MEDS ORDERED: IOHEXOL 350 MG/ML 150 ML (OMNIPAQUE 350) VIAL IV ONE (13:00)
[2017-12-20] MEDS ORDERED: methylPREDNISolone 125 MG (Solu-MEDROL) VIAL IVP ONE (13:30)
--- NOTE | 2017-12-20 13:37 | Diagnostic Imaging Report ---
PROCEDURE: CT angiography of the chest with contrast. TECHNIQUE: Multiple contiguous axial images were obtained through the chest after uneventful bolus administration of intravenous contrast. Reconstructed CTA MIP acquisitions were also performed. INDICATION: Chest pain. The previous CT chest exam performed on 08/11/2007 failed to show any sign of an acute cardiopulmonary abnormality. On this exam, there is no defect within the pulmonaries to indicate a pulmonary embolus. There is atelectasis/infiltrate in the right infrahilar region. This finding was not clearly evident on the prior exam but could be chronic in nature. The possibility that there is an element of acute pneumonia/atelectasis in this area should still be considered. There is also a band of atelectasis/infiltrate in the right perihilar region anteriorly. This too may be chronic in nature. The lungs are otherwise generally clear. There is no sign of a pleural effusion. The aorta is not abnormally dilated and there is no evidence for dissection. The heart size is slightly enlarged. There are sparse coronary artery calcifications evident. There is no mediastinal or hilar adenopathy. Thyroid gland was not well visualized. There is no obvious breast mass. According to our records the patient has not had a mammogram since 2007. If the patient has had a recent (within the last year) mammogram elsewhere, then no further imaging would be required. However if patient has not had a recent mammogram, but mammography would be recommended. The sections through the upper abdomen fail to show any sign acute abnormality. The liver is mildly enlarged. Bone windows fail to show any sign of a fracture or destructive lesion. IMPRESSION: 1. There is no evidence for a pulmonary embolus or for dissection. 2. The areas of atelectasis/infiltrate in the right perihilar region and right infrahilar region may well be chronic in nature. The possibility that these are related to acute pneumonia/atelectasis should still be considered. 3. There is no obvious breast mass. 4. The liver is mildly enlarged and low density appearance of the liver does suggest fatty metamorphosis. 5. There is cardiomegaly and coronary artery disease. Dictated by: Dictated on workstation # [id number]
[2017-12-20] MEDS ORDERED: DEXAMETHASONE 4 MG/ML SDV (DECADRON) IH ONE (13:45)
[2017-12-20] MEDS ORDERED: RT-ALBUTEROL/IPRATROPIUM 3 ML (DUONEB) VIAL INH ONE (13:45)
[2017-12-20] MEDS ORDERED: cefTRIAXone INJECTION 1,000 MG in NS (IVPB) 100 ML IV ONE (14:00)
[2017-12-20] MEDS ORDERED: ACETAMINOPHEN 500 MG TAB (TYLENOL) PO ONE (14:15)
[2017-12-20 15:05] VITALS: BP 144/72
--- NOTE | 2017-12-20 16:14 | Consultation-Cardiology ---
HPI-Cardiology Cardiology Consultation: Date of Consultation 12/20/17 Date of Admission Attending Physician Hilda Coleman DO Admitting Physician Hilda Coleman DO Consulting Physician Adolfo ZAPATA MD HPI: Time Seen by Provider: 16:14 Chief Complaint: Shortness of breath This is a 67-year-old lady with history of COPD, previous history of smoking. She presented with shortness of breath and has been diagnosed as COPD exacerbation with possible pneumonia. Cardiology has been consulted to evaluate shortness of breath. Patient denies any significant PND, syncope, near -syncope, palpitation, chest pain. Denies any significant weight gain. The patient had coronary angiography in 2010 which did not reveal any significant CAD. LVEF was normal. The patient had an echocardiogram in 2007 which showed normal LV function. Review of Systems-Cardiology Review of Systems Constitutional: As described under HPI Eyes: No As described under HPI, No no symptoms reported, No blindness, No blurred vision, No contact lenses, No drainage, No decreased acuity, No foreign body sensation, No glasses, No inflammation, No pain, No photophobia, No previous injury, No shadows, No tunnel vision, No other, No vision change Ears/Nose/Throat: No As described under HPI, No no symptoms reported, No chronic hearing loss, No epistaxis, No ear discharge, No ear pain, No loose teeth, No mouth pain, No mouth swelling, No nasal drainage, No nose pain, No recent hearing loss, No throat pain, No throat swelling, No ulcerations, No other Respiratory: shortness of breath Cardiovascular: No no symptoms reported, No As described under HPI, No chest pain, No edema, No irregular heart rate, No lightheadedness, No palpitations, No syncope, No other Gastrointestinal: No no symptoms reported, No As described under HPI, No abdomen distended, No abdominal pain, No blood streaked bowels, No constipation , No diarrhea, No difficulty swallowing, No nausea, No poor appetite, No poor fluid intake, No rectal bleeding, No vomiting, No other, No nausea/vomiting/ diarrhea, No stool coloration changes Genitourinary: No no symptoms reported, No As described under HPI, No burning, No dysuria, No discharge, No frequency, No flank pain, No hematuria, No incontinence, No pain, No urgency, No other, No urine frequency changes, No urine coloration changes Musculoskeletal: No no symptoms reported, No As describe under HPI, No back pain, No gout, No joint pain, No joint swelling, No muscle pain, No muscle stiffness, No neck pain, No other Skin: No no symptoms reported, No As described under HPI, No change in color, No change in hair/nails, No dryness, No lesions, No lumps, No rash, No other, No skin related problems, No ulcerations, No rash on exposed areas, No ulcerations on exposed areas Psychiatric/Neurological: No no symptoms reported, No As described under HPI, No anxiety, No depression, No emotional problems, No headache, No numbness, No pre-existing deficit, No seizure, No tingling, No tremors, No weakness, No other , No focal weakness, No syncope [id number] Hx Patient Social History Alcohol Use: Denies Use Recreational Drug Use: No Smoking Status: Current Everyday Smoker Type Used: Cigarettes Recent Foreign Travel: No Recent Infectious Disease Expo: No Hospitalization with Isolation: Denies Physical Abuse Screen: No Sexual Abuse: No Immunizations Up To Date Date of Pneumonia Vaccine: Jul 22, 2016 Date of Influenza Vaccine: Jul 22, 2017 Past Medical History PMH As described under Assessment. Family Medical History Family History: Diabetes mellitus 19 MOTHER FH: COPD (chronic obstructive pulmonary disease) 19 FATHER FH: heart attack 19 FATHER FH: melanoma 19 FATHER FH: stomach cancer 19 MOTHER Allergies and Home Medications Allergies Coded Allergies: No Known Drug Allergies (Verified , 05/08/09) Home Medications Aclidinium [place] 400 Mcg Aer.pow.ba, 1 PUFF INH BID, (Reported) Albuterol Sulfate 1 Puff Puff, 2 PUFF IH Q4H PRN for SHORTNESS OF BREATH, ( Reported) 1 PUFF = 90 MCG Albuterol Sulfate 2.5 Mg/3 Ml Vial.neb, 2.5 MG NEB Q4H PRN for SHORTNESS OF BREATH, (Reported) Alprazolam 0.5 Mg Tablet, 0.5 MG PO TID, (Reported) Aripiprazole 10 Mg Tablet, 10 MG PO BID, (Reported) Aspirin 81 Mg Tablet.dr, 81 MG PO DAILY, (Reported) Atorvastatin Calcium 20 Mg Tablet, 20 MG PO HS, (Reported) Carvedilol 12.5 Mg Tablet, 12.5 MG PO BID, (Reported) Duloxetine HCl 60 Mg Capsule.dr, 60 MG PO BID, (Reported) Fluticasone/Salmeterol 1 Each Blst.w.dev, 1 PUFF IH BID, (Reported) Furosemide 40 Mg Tablet, 60 MG PO DAILY, (Reported) Gabapentin 400 Mg Capsule, 400 MG PO DAILY, (Reported) TAKES 400MG AM AND 800MG AT BEDTIME Gabapentin 400 Mg Capsule, 800 MG PO HS, (Reported) TAKES 400MG AM AND 800MG AT BEDTIME Levothyroxine Sodium 150 Mcg Tablet, 150 MCG PO DAILY, (Reported) Liraglutide 0.6 Mg/0.1 Ml Pen.injctr, 1.8 MG SQ DAILY, (Reported) Multivitamin with Minerals 1 Each Tablet, 1 TAB PO DAILY, (Reported) Nystatin 60 Gm Powder, TP TID, (Reported) [place] 3 Polyunsat Fatty Acids 1,000 Mg Cap, 1,000 MG PO DAILY, (Reported) Pantoprazole Sodium 40 Mg Tablet.dr, 40 MG PO BID, (Reported) Potassium Chloride 20 Meq Tab.er.prt, 60 MEQ PO DAILY, (Reported) Spironolactone 25 Mg Tablet, 25 MG PO DAILY, (Reported) Patient Home Medication List Home Medication List Reviewed: Yes Physical Exam-Cardiology Physical Exam Vital Signs/I&O Vital Sign - Last 12Hours 12/20/17 12/20/17 12/20/17 12/20/17 11:11 11:11 11:25 13:57 Temp 101.3 Pulse 111 Resp 23 B/P (MAP) 133/105 (114) Pulse Ox 100 98 98 94 O2 Delivery T Piece T Piece Nasal Cannula Nasal Cannula O2 Flow Rate 6.00 3.00 3.00 FiO2 100 12/20/17 12/20/17 12/20/17 12/20/17 14:22 14:58 15:05 15:15 Temp 101.3 97.3 Pulse 116 120 Resp 20 20 B/P (MAP) 122/96 144/72 (96) Pulse Ox 94 92 O2 Delivery Nasal Cannula Nasal Cannula Nasal Cannula O2 Flow Rate 2.00 3.00 3.00 12/20/17 12/20/17 12/20/17 12/20/17 16:56 17:00 19:28 19:37 Temp 98.4 Pulse 120 102 Resp 20 B/P (MAP) 119/58 (78) Pulse Ox 91 91 91 O2 Delivery Nasal Cannula Nasal Cannula Nasal Cannula O2 Flow Rate 3.00 3.00 3.00 12/20/17 20:00 Temp 97.1 Pulse 103 Resp 20 B/P (MAP) 115/54 (74) Pulse Ox 92 O2 Delivery Nasal Cannula O2 Flow Rate 3.00 Capillary Refill : Less Than 3 Seconds Constitutional: No appears stated age, AAO x 3, No apparent distress, No PERRL , No well-developed, No well-nourished, No other HEENT: PERRL, No normal ENT inspection, No TMs normal, No pharynx normal, No scleral icterus (R), No scleral icterus (L), No pale conjunctivae (R), No pale conjunctivae (L), No photophobia, No TM abnormal (R), No TM abnormal (L), No pharyngeal erythema, No tonsillar exudate, No other, No discharge, No EOMI, hearing is well preserved, No hard of hearing, oral hygience is good, No ulceration, No xanthelasmas are seen Neck: No non-tender, No full range of motion, No supple, No normal inspection, No carotid bruit, No limited range of motion, No lymphadenopathy (R), No lymphadenopathy (L), No tender lateral, No tender midline, No thyromegaly, No other, carotid pulses are 2 + bilaterally, No with good upstrokes Respiratory: No accessory muscle use, No respiratory distress, No chest tender , No chest expansion is symmetric, chest is bilaterally symmetric, No lungs clear to percussion, lungs clear to auscultation, No crackles, No rhonchi, No rales, No stridor, No wheezing, No pleural rub, No other Cardiovascular: regular rate-rhythm, S1 and S2 Gastrointestinal: No tender, No soft, No round, No distended, No pulsatile mass , No organomegaly, No guarding, No rebound, No tenderness, No hernia, No mass, No audible bowel sounds, No abnormal bowel sounds, No abdominal bruits, No spleenomegaly, No other Rectal: deferred Extremities: No normal range of motion, No non-tender, No normal inspection, No pedal edema, No calf tenderness, No normal capillary refill, No pelvis stable , No calf tenderness, No inflammation, No pedal edema, No slow capillary refill , No swelling, No other, No abrasion, No clubbing, No cyanosis, No ecchymosis, No laceration, No no lower extremity edema bilateral, No significant edema, No tenderness, No wound Neurologic/Psychiatric: No 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 school football coach II-XII nml as tested, No no motor/sensory deficits, alert, normal mood/affect, oriented x 3, No abnormal cerebellar tests , No abnormal high school football coach II-XII, No abnormal gait, No aphasia, No EOM palsy, No facial droop, No motor weakness, No sensory deficit, No depressed affect, No disoriented x 3, No other, No grossly intact, No power is 5/5 both on sides Skin: No normal color, No warm/dry, No cyanosis, No cool, No diaphoresis, No damp, No ecchymosis, No jaundice, No mottled, No pallor, No rash, No tattoos/ piercings, No ulcerations, No rash on exposed areas, No ulcerations on exposed areas, No other Data Review Labs Laboratory Tests 12/20/17 11:11: White Blood Count 17.6H, Red Blood Count 5.09, Hemoglobin 14.0, Hematocrit 44, Mean Corpuscular Volume 86, Mean Corpuscular Hemoglobin 28, Mean Corpuscular Hemoglobin Concent 32, Red Cell Distribution Width 15.8H, Platelet Count 211, Mean Platelet Volume 10.3, Neutrophils (%) (Auto) 84H, Lymphocytes (%) (Auto) 7L , Monocytes (%) (Auto) 7, Eosinophils (%) (Auto) 1, Basophils (%) (Auto) 0, Neutrophils # (Auto) 14.9H, Lymphocytes # (Auto) 1.3, Monocytes # (Auto) 1.3H, Eosinophils # (Auto) 0.2, Basophils # (Auto) 0.0, Neutrophils % (Manual) 84, Lymphocytes % (Manual) 7, Monocytes % (Manual) 4, Basophils % (Manual) 1, Reactive Lymphocytes 4, Blood Morphology Comment NORMAL, Prothrombin Time 13.3, INR Comment 1.0, Activated Partial Thromboplast Time 30, Sodium Level 135, Potassium Level 4.0, Chloride Level 92L, Carbon Dioxide Level 30, Anion Gap 13, Blood Urea Nitrogen 13, Creatinine 0.85, Estimat Glomerular Filtration Rate > 60 , BUN/Creatinine Ratio 15, Glucose Level 183H, Lactic Acid Level 1.45, Calcium Level 9.7, Magnesium Level 2.0, Total Bilirubin 1.0, Aspartate Amino Transf (AST /SGOT) 22, Alanine Aminotransferase (ALT/SGPT) 22, Alkaline Phosphatase 92, Total Creatine Kinase 20L, Creatine Kinase MB 0.4, Troponin I < 0.30, B-Type Natriuretic Peptide 27.2, Total Protein 7.2, Albumin 4.4 12/20/17 11:35: Blood Gas Puncture Site RR, Blood Gas Patient Temperature 99.1, Arterial Blood pH 7.44H, Arterial Blood Partial Pressure CO2 45, Arterial Blood Partial Pressure O2 65L, Arterial Blood HCO3 30H, Arterial Blood Total CO2 31.8H, Arterial Blood Oxygen Saturation 95, Arterial Blood Base Excess 6.3H, Jovanny Test YES-POS, Blood Gas Ventilator Setting NA, Blood Gas Inspired Oxygen 2 12/20/17 12:07: Urine Color YELLOW, Urine Clarity CLEAR, Urine pH 8, Urine Specific [place] 1.010L, Urine Protein NEGATIVE, Urine Glucose (UA) 4+H, Urine Ketones 2+H, Urine Nitrite NEGATIVE, Urine Bilirubin NEGATIVE, Urine Urobilinogen NORMAL, Urine Leukocyte Esterase NEGATIVE, Urine RBC (Auto) NEGATIVE, Urine RBC RARE, Urine WBC 2-5, Urine Squamous Epithelial Cells 5-10, Urine Crystals NONE, Urine Bacteria TRACE, Urine Casts NONE, Urine Mucus NEGATIVE, Urine Culture Indicated NO 12/20/17 15:18: Glucometer 186H 12/20/17 16:45: Troponin I < 0.30 12/20/17 21:16: Glucometer 333H Microbiology 12/20/17 Influenza Types A,B Antigen (SUMAN) - Final, Complete ECG Impression ECG Initial ECG Rhythm: S.Tach A/P-Cardiology Assessment/Admission Diagnosis COPD exacerbation, pneumonia, Shortness of breath, Sinus tachycardia, Hypertension, Hyperlipidemia, Hypothyroidism. Plan Shortness of breath is probably multifactorial. Likely secondary to COPD exacerbation and pneumonia. Diastolic heart failure cannot be ruled out. However since BNP is very low it is unlikely to be congestive heart failure. The patient is also euvolemic on examination. Will rule out acute coronary syndrome with serial troponin. Nebulization, IV steroids, IV antibiotics. Sinus tachycardia, likely secondary to COPD exacerbation. Hypertension: Continue outpatient medication. Hyperlipidemia: Continue statin therapy. Echocardiogram. Thank you for your consultation. Please call me if you have any questions. Janine Zapata MD, FACP, FACC, FSCAI, FHRS, CCDS Interventional Cardiology Cardiac Electrophysiology Vascular Medicine and Endovascular Interventions Clinical Quality Measures DVT/VTE Risk/Contraindication: Risk Factor Score Per Nursin RFS Level Per Nursing on Admit: 4+=Very High Adolfo ZAPATA MD Dec 20, 2017 4:14 pm
[2017-12-20] MEDS ORDERED: ACETAMINOPHEN 500 MG TAB (TYLENOL) PO PRN ×2 (16:15→17:00)
[2017-12-20] MEDS ORDERED: POTA20TA15 PO ×2 (16:41)
[2017-12-20] MEDS ORDERED: FURO-124 PO (16:41)
[2017-12-20] MEDS ORDERED: SPIR25TA3 PO ×2 (16:41)
[2017-12-20 16:56] VITALS: BP 144/72
[2017-12-20 17:00] VITALS: BP 119/58
[2017-12-20] MEDS ORDERED: ONDANSETRON 4 MG/2 ML (SDV) Z0FRAN IVP PRN (17:00)
[2017-12-20] MEDS ORDERED: HYDROcodone/APAP 5 MG/325 MG (LORTAB) TAB PO PRN (17:00)
[2017-12-20] MEDS ORDERED: RT-ALBUTEROL SULF 2.5 MG/3 ML PRE-MIX VIAL INH PRN (17:00)
[2017-12-20] MEDS ORDERED: IBUPROFEN TABLET 200 MG TAB PO PRN (17:00)
[2017-12-20] MEDS ORDERED: fentaNYL INJECTION 100 MCG/2 ML AMP IVP PRN (17:00)
[2017-12-20] MEDS ORDERED: CALCIUM CARBONATE 500 MG (TUMS) TAB.CHEW PO PRN (17:00)
[2017-12-20] MEDS ORDERED: RT-ALBUTEROL SULF 2.5 MG/3 ML PRE-MIX VIAL IH PRN (17:15)
[2017-12-20] MEDS: DOXYCYCLINE INJECTION 100 MG in NS (IVPB) 100 ML IV SCH (17:49)
[2017-12-20] MEDS: methylPREDNISolone 125 MG (Solu-MEDROL) VIAL IV SCH (17:49)
[2017-12-20] MEDS: RT-ADVAIR HFA 115/21 MCG PER PUFF IH SCH (19:28)
[2017-12-20] MEDS: RT-ALBUTEROL/IPRATROPIUM 3 ML (DUONEB) VIAL INH SCH ×2 (19:28→21:54)
[2017-12-20 20:00] VITALS: BP 115/54
[2017-12-20] MEDS: inSUlin (REGULAR) HUMAN 1 UNIT/0.01 ML (CHARGE PER UNIT) SC SCH (22:42)
[2017-12-20] MEDS: DULoxetine 30 MG (CYMBALTA) CAP PO SCH (22:42)
[2017-12-20] MEDS: ATORVASTATIN 20 MG (LIPITOR) TABLET PO SCH (22:42)
[2017-12-20] MEDS: CARVEDILOL 12.5 MG (COREG) TABLET PO SCH (22:43)
[2017-12-20] MEDS: PANTOPRAZOLE 40 MG (PROTONIX) TAB PO SCH (22:43)
[2017-12-20] MEDS: ALPRAZolam 0.5 MG (XANAX) TAB PO SCH (22:43)
[2017-12-20] MEDS: GABAPENTIN 400 MG (NEURONTIN) CAP PO SCH (22:43)
[2017-12-20] MEDS: ARIPIPRAZOLE 10 MG (ABILIFY) TAB PO SCH (22:44)
[2017-12-20] MEDS: MICONAZOLE 2% POWDER (DESENEX AF) 90 GM TOP SCH (22:55)
[2017-12-20 23:43] VITALS: BP 115/59
[2017-12-21] MEDS: methylPREDNISolone 125 MG (Solu-MEDROL) VIAL IV SCH ×4 (00:24→17:32)
[2017-12-21] MEDS: RT-ALBUTEROL/IPRATROPIUM 3 ML (DUONEB) VIAL INH SCH ×5 (02:48→21:50)
[2017-12-21 03:52] VITALS: BP 126/62
[2017-12-21] MEDS: DOXYCYCLINE INJECTION 100 MG in NS (IVPB) 100 ML IV SCH ×2 (05:16→17:33)
[2017-12-21 05:19] LABS: BASOPHILS % (AUTO) 0 % (0-10); EOSINOPHILS % (AUTO) 0 % (0-10); HEMATOCRIT 41 % (35-52); HEMOGLOBIN 13.3 G/DL (11.5-16.0); LYMPHOCYTES # (AUTO) 1.2 X 10^3 (1.0-4.0); LYMPHOCYTES % (AUTO) 7 % (12-44); MEAN CORPUSCULAR HEMOGLOBIN 27 PG (25-34); MEAN CORPUSCULAR HGB CONC 33 G/DL (32-36); MEAN CORPUSCULAR VOLUME 84 FL (80-99); MEAN PLATELET VOLUME 10.4 FL (7.4-10.4); MONOCYTES # (AUTO) 0.3 X 10^3 (0.0-1.0); MONOCYTES % (AUTO) 2 % (0-12); NEUTROPHILS # (AUTO) 16.3 X 10^3 (1.8-7.8); NEUTROPHILS % (AUTO) 92 % (42-75); PLATELET COUNT 189 10^3/uL (130-400); RED BLOOD COUNT 4.85 10^6/uL (4.35-5.85); RED CELL DISTRIBUTION WIDTH 15.7 % (10.0-14.5); WHITE BLOOD COUNT 17.8 10^3/uL (4.3-11.0)
[2017-12-21 05:37] LABS: ALANINE AMINOTRANSFERASE 19 U/L (0-55); ALBUMIN 4.1 GM/DL (3.2-4.5); ALKALINE PHOSPHATASE 78 U/L (40-136); BILIRUBIN,TOTAL 0.6 MG/DL (0.1-1.0); BUN/CREATININE RATIO 21; CALCIUM 9.5 MG/DL (8.5-10.1); CARBON DIOXIDE 26 MMOL/L (21-32); CHLORIDE 98 MMOL/L (98-107); GFR ESTIMATED > 60; GLUCOSE 229 MG/DL (70-105); SODIUM 137 MMOL/L (135-145)
[2017-12-21] MEDS: LEVOTHYROXINE 150 MCG (LEVOTHROID) TAB PO SCH (06:10)
[2017-12-21] MEDS: inSUlin (REGULAR) HUMAN 1 UNIT/0.01 ML (CHARGE PER UNIT) SC SCH ×4 (06:10→22:27)
[2017-12-21] MEDS: RT-ADVAIR HFA 115/21 MCG PER PUFF IH SCH ×2 (06:55→18:48)
[2017-12-21 08:00] VITALS: BP 136/69
[2017-12-21] MEDS: DULoxetine 30 MG (CYMBALTA) CAP PO SCH ×2 (08:10→22:28)
[2017-12-21] MEDS: ARIPIPRAZOLE 10 MG (ABILIFY) TAB PO SCH ×2 (08:10→22:28)
[2017-12-21] MEDS: PANTOPRAZOLE 40 MG (PROTONIX) TAB PO SCH ×2 (08:11→22:28)
[2017-12-21] MEDS: MICONAZOLE 2% POWDER (DESENEX AF) 90 GM TOP SCH ×2 (08:11→22:29)
[2017-12-21] MEDS: OMEGA 3 (FISH OIL) 1000 MG CAP PO SCH (08:11)
[2017-12-21] MEDS: GABAPENTIN 400 MG (NEURONTIN) CAP PO SCH ×2 (08:11→22:28)
[2017-12-21] MEDS: MULTIVIT W/MINERALS TAB (THERAGRAN M) PO SCH (08:11)
[2017-12-21] MEDS: ASPIRIN E.C. 81 MG (ECOTRIN) TAB PO SCH (08:11)
[2017-12-21] MEDS: ALPRAZolam 0.5 MG (XANAX) TAB PO SCH ×3 (08:11→22:28)
[2017-12-21] MEDS: CARVEDILOL 12.5 MG (COREG) TABLET PO SCH ×2 (08:11→22:27)
--- NOTE | 2017-12-21 08:32 | ED Respiratory ---
General Chief Complaint: Respiratory Problems Stated Complaint: COPD EXACERBATION,PNEUMONIA,SEPSIS Nursing Triage Note: Pt. advises shortness of breath this morning that has become progressively worse. Pt. initial 02 sat via room air was 89% for EMS. Pt. advises shortness of breath is still present but has improved since tx. per EMS. 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 KAUFMAN Allergies and Home Medications Allergies Coded Allergies: No Known Drug Allergies (Verified , 05/08/09) Home Medications Aclidinium [place] 400 Mcg Aer.pow.ba, 1 PUFF INH BID, (Reported) Albuterol Sulfate 1 Puff Puff, 2 PUFF IH Q4H PRN for SHORTNESS OF BREATH, ( Reported) 1 PUFF = 90 MCG Albuterol Sulfate 2.5 Mg/3 Ml Vial.neb, 2.5 MG NEB Q4H PRN for SHORTNESS OF BREATH, (Reported) Alprazolam 0.5 Mg Tablet, 0.5 MG PO TID, (Reported) Aripiprazole 10 Mg Tablet, 10 MG PO BID, (Reported) Aspirin 81 Mg Tablet.dr, 81 MG PO DAILY, (Reported) Atorvastatin Calcium 20 Mg Tablet, 20 MG PO HS, (Reported) Carvedilol 12.5 Mg Tablet, 12.5 MG PO BID, (Reported) Duloxetine HCl 60 Mg Capsule.dr, 60 MG PO BID, (Reported) Fluticasone/Salmeterol 1 Each Blst.w.dev, 1 PUFF IH BID, (Reported) Furosemide 40 Mg Tablet, 60 MG PO DAILY, (Reported) Gabapentin 400 Mg Capsule, 400 MG PO DAILY, (Reported) TAKES 400MG AM AND 800MG AT BEDTIME Gabapentin 400 Mg Capsule, 800 MG PO HS, (Reported) TAKES 400MG AM AND 800MG AT BEDTIME Levothyroxine Sodium 150 Mcg Tablet, 150 MCG PO DAILY, (Reported) Liraglutide 0.6 Mg/0.1 Ml Pen.injctr, 1.8 MG SQ DAILY, (Reported) Multivitamin with Minerals 1 Each Tablet, 1 TAB PO DAILY, (Reported) Nystatin 60 Gm Powder, TP TID, (Reported) [place] 3 Polyunsat Fatty Acids 1,000 Mg Cap, 1,000 MG PO DAILY, (Reported) Pantoprazole Sodium 40 Mg Tablet.dr, 40 MG PO BID, (Reported) Potassium Chloride 20 Meq Tab.er.prt, 60 MEQ PO DAILY, (Reported) Spironolactone 25 Mg Tablet, 25 MG PO DAILY, (Reported) Patient Home Medication List Home Medication List Reviewed: Yes Constitutional: no symptoms reported, No chills, No diaphoresis, No fever EENTM: nose congestion Respiratory: see HPI, cough, dyspnea on exertion, orthopnea, No phlegm, short of breath, wheezing Cardiovascular: No chest pain, edema (CHRONIC/STABLE), No palpitations, No syncope Gastrointestinal: no symptoms reported Genitourinary: no symptoms reported Musculoskeletal: no symptoms reported Skin: no symptoms reported Psychiatric/Neurological: No Symptoms Reported Past [id number] Hx Patient Social History Alcohol Use: Denies Use Recreational Drug Use: No Smoking Status: Current Everyday Smoker (1/2-1 PPD) Type Used: Cigarettes Recent Foreign Travel: No Contact w/Someone Who Travel: No Recent Infectious Disease Expo: No Recent Hopitalizations: Yes (JUNE 2017) Physical Abuse: No Sexual Abuse: No Immunizations Up To Date PED Vaccines UTD: No Date of Pneumonia Vaccine: Jul 22, 2016 Date of Influenza Vaccine: Jul 22, 2017 Seasonal Allergies Seasonal Allergies: Yes Surgeries History of Surgeries: Yes Surgeries: 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, Tonsillectomy, Tubal Ligation Respiratory History of Respiratory Disorde: Yes (O2 AT 3L/NC CONTINUOUSLY) Respiratory Disorders: Pneumonia, Sleep Apnea, COPD Currently Using CPAP: Yes Currently Using BIPAP: No Cardiovascular History of Cardiac Disorders: Yes Cardiac Disorders: Chronic Edema/Swelling, High Cholesterol, Hypertension Neurological History of Neurological Disord: Yes (?NEUROPATHY?) Reproductive System Sexually Transmitted Disease: No HIV/AIDS: No Female Reproductive Disorders: Denies 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, Tubal Ligation, Menopausal Genitourinary History of Genitourinary Disor: Yes Genitourinary Disorders: Kidney Infection Gastrointestinal History of Gastrointestinal Di: Yes Gastrointestinal Disorders: Gastroesophageal Reflux, Hiatal Hernia Musculoskeletal History of Musculoskeletal Dis: Yes Musculoskeletal Disorders: Degenerate Disk Disease, Arthritis, Fibromyalgia, Chronic Back Pain Endocrine History of Endocrine Disorders: Yes (OBESITY) Endocrine Disorders: Hypothyroidsim, Diabetes, Non-Insulin dep Are Your Blood Sugars Over 250: Yes HEENT History of HEENT Disorders: No Loss of Vision: Denies Hearing Impairment: Denies Cancer History of Cancer: No Psychosocial History of Psychiatric Problem: Yes Behavioral Health Disorders: Anxiety, Depression Suicide Risk Score: 0 Integumentary History of Skin or Integumenta: Yes (CELLULITIS, YEAST INFECTIONS) Blood Transfusions History of Blood Disorders: No Adverse Reaction to a Blood Tr: No Family Medical History Significant Family History: No Pertinent Family Hx Family Medial History: Diabetes mellitus 19 MOTHER FH: COPD (chronic obstructive pulmonary disease) 19 FATHER FH: heart attack 19 FATHER FH: melanoma 19 FATHER FH: stomach cancer 19 MOTHER Physical Exam Vital Signs Vital Signs - First Documented 12/20/17 11:11 Temp 101.3 Pulse 111 Resp 23 B/P (MAP) 133/105 (114) Pulse Ox 100 O2 Delivery T Piece O2 Flow Rate 6.00 FiO2 100 Capillary Refill : Less Than 3 Seconds General Appearance: moderate distress, obese, other (MALODOROUS; AUDIBLE WHEEZING FROM DOORWAY) Respiratory: respiratory distress, decreased breath sounds (DECREASED AERATION IN ALL LUNG BAIG), accessory muscle use, wheezing (AUDIBLE FROM DOORWAY) Cardiovascular: regular rate, rhythm, no murmur Gastrointestinal: non tender, soft Extremities: normal range of motion, non-tender, no calf tenderness, normal capillary refill, pedal edema (3+ EDEMA WITH CHRONIC VENOUS STASIS CHANGES/ CELLULITIS-PT STATES IS NORMAL ) 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, no motor/sensory deficits, alert, oriented x 3 Skin: normal color, warm/dry Focused Exam Evaluation Lactate Level Laboratory Tests 12/20/17 11:11: Lactic Acid Level 1.45 Lactic Acid Level Laboratory Tests Test 12/20/17 11:11 Lactic Acid Level 1.45 MMOL/L (0.50-2.00) Progress/Results/Core Measures Suspected Sepsis Recent Fever Within 48 Hours: Yes Infection Criteria Present: Documented Infection New/Unexplained Altered Menta: No Sepsis Screen: No Definite Risk Sepsis Diagnosis: SIRS Temperature:97.3 Pulse: 100 Respiratory Rate: 16 Laboratory Tests 12/20/17 11:11: White Blood Count 17.6H Blood Pressure 126 /62 Mean: 83 Laboratory Tests 12/20/17 11:11: Lactic Acid Level 1.45 Laboratory Tests 12/20/17 11:11: Creatinine 0.85, INR Comment 1.0, Platelet Count 211, Total Bilirubin 1.0 Results/Orders Lab Results Laboratory Tests Test 12/20/17 11:11 12/20/17 11:35 12/20/17 12:07 Range/Units White Blood Count 17.6 H 4.3-11.0 10^3/uL Red Blood Count 5.09 4.35-5.85 10^6/uL Hemoglobin 14.0 11.5-16.0 G/DL Hematocrit 44 35-52 % Mean Corpuscular Volume 86 80-99 FL Mean Corpuscular Hemoglobin 28 25-34 PG Mean Corpuscular Hemoglobin Concent 32 32-36 G/DL Red Cell Distribution Width 15.8 H 10.0-14.5 % Platelet Count 211 130-400 10^3/uL Mean Platelet Volume 10.3 7.4-10.4 FL Neutrophils (%) (Auto) 84 H 42-75 % Lymphocytes (%) (Auto) 7 L 12-44 % Monocytes (%) (Auto) 7 0-12 % Eosinophils (%) (Auto) 1 0-10 % Basophils (%) (Auto) 0 0-10 % Neutrophils # (Auto) 14.9 H 1.8-7.8 X 10^3 Lymphocytes # (Auto) 1.3 1.0-4.0 X 10^3 Monocytes # (Auto) 1.3 H 0.0-1.0 X 10^3 Eosinophils # (Auto) 0.2 0.0-0.3 10^3/uL Basophils # (Auto) 0.0 0.0-0.1 10^3/uL Neutrophils % (Manual) 84 % Lymphocytes % (Manual) 7 % Monocytes % (Manual) 4 % Basophils % (Manual) 1 % Reactive Lymphocytes 4 % Blood Morphology Comment NORMAL Prothrombin Time 13.3 12.2-14.7 SEC INR Comment 1.0 0.8-1.4 Activated Partial Thromboplast Time 30 24-35 SEC Sodium Level 135 135-145 MMOL/L Potassium Level 4.0 3.6-5.0 MMOL/L Chloride Level 92 L 98-107 MMOL/L Carbon Dioxide Level 30 21-32 MMOL/L Anion Gap 13 5-14 MMOL/L Blood Urea Nitrogen 13 7-18 MG/DL Creatinine 0.85 0.60-1.30 MG/DL Estimat Glomerular Filtration Rate > 60 BUN/Creatinine Ratio 15 Glucose Level 183 H 70-105 MG/DL Lactic Acid Level 1.45 0.50-2.00 MMOL/L Calcium Level 9.7 8.5-10.1 MG/DL Magnesium Level 2.0 1.8-2.4 MG/DL Total Bilirubin 1.0 0.1-1.0 MG/DL Aspartate Amino Transf (AST/SGOT) 22 5-34 U/L Alanine Aminotransferase (ALT/SGPT) 22 0-55 U/L Alkaline Phosphatase 92 40-136 U/L Total Creatine Kinase 20 L 29-168 U/L Creatine Kinase MB 0.4 <6.6 NG/ML Troponin I < 0.30 <0.30 NG/ML B-Type Natriuretic Peptide 27.2 <100.0 PG/ML Total Protein 7.2 6.4-8.2 GM/DL Albumin 4.4 3.2-4.5 GM/DL Blood Gas Puncture Site RR Blood Gas Patient Temperature 99.1 Arterial Blood pH 7.44 H 7.37-7.43 Arterial Blood Partial Pressure CO2 45 35-45 MMHG Arterial Blood Partial Pressure O2 65 L 79-93 MMHG Arterial Blood HCO3 30 H 23-27 MMOL/L Arterial Blood Total CO2 31.8 H 21.0-31.0 MMOL/L Arterial Blood Oxygen Saturation 95 94-100 % Arterial Blood Base Excess 6.3 H -2.5-2.5 MMOL/L Jovanny Test YES-POS Blood Gas Ventilator Setting NA Blood Gas Inspired Oxygen 2 Urine Color YELLOW Urine Clarity CLEAR Urine pH 8 5-9 Urine Specific [place] 1.010 L 1.016-1.022 Urine Protein NEGATIVE NEGATIVE Urine Glucose (UA) 4+ H NEGATIVE Urine Ketones 2+ H NEGATIVE Urine Nitrite NEGATIVE NEGATIVE Urine Bilirubin NEGATIVE NEGATIVE Urine Urobilinogen NORMAL NORMAL MG/DL Urine Leukocyte Esterase NEGATIVE NEGATIVE Urine RBC (Auto) NEGATIVE NEGATIVE Urine RBC RARE /HPF Urine WBC 2-5 /HPF Urine Squamous Epithelial Cells 5-10 /HPF Urine Crystals NONE /LPF Urine Bacteria TRACE /HPF Urine Casts NONE /LPF Urine Mucus NEGATIVE /LPF Urine Culture Indicated NO Micro Results Microbiology 12/20/17 Influenza Types A,B Antigen (SUMAN) - Final, Complete My Orders Orders - TONY RAGLAND DO Dexamethasone Injection (Decadron Inject (12/20/17 11:11) Ipratropium 0.02% Neb Solution (Atrovent (12/20/17 11:11) Albuterol Pre-Mix Nebs (Rt) (Proventil (12/20/17 11:11) Saline Lock/Iv-Start (12/20/17 11:20) Ekg Tracing (12/20/17 11:20) O2 (12/20/17 11:20) Monitor-Rhythm Ecg Trace Only (12/20/17 11:20) Arterial Blood Gas (12/20/17 11:20) BNP (12/20/17 11:20) Cbc With Automated Diff (12/20/17 11:20) Comprehensive Metabolic Panel (12/20/17 11:20) Creatine Kinase (12/20/17 11:20) Creatine Kinase Mb (12/20/17 11:20) Lactic Acid Analyzer (12/20/17 11:20) Magnesium (12/20/17 11:20) Protime With Inr (12/20/17 11:20) Partial Thromboplastin Time (12/20/17 11:20) Troponin I (12/20/17 11:20) Ua Culture If Indicated (12/20/17 11:20) Blood Culture (12/20/17 11:20) Influenza A And B Antigens (12/20/17 11:20) Manual Differential (12/20/17 11:11) Chest 1 View, Ap/Pa Only (12/20/17 12:03) Ct Angio Chest W (12/20/17 12:41) Iohexol Injection (Omnipaque 350 Mg/Ml 1 (12/20/17 13:00) Ns (Ivpb) (Sodium Chloride 0.9% Ivpb Bag (12/20/17 13:00) Methylprednisolone Sod Succ (Solu-Medrol (12/20/17 13:30) Albuterol/Ipra Inhalation Soln (Duoneb I (12/20/17 13:45) Dexamethasone Injection (Decadron Inject (12/20/17 13:45) Rt Request For Service (12/20/17 13:31) Svn Sm Volume Nebulizer Rt-Rfs (12/20/17 13:31) Ceftriaxone Injection (Rocephin Injectio (12/20/17 14:00) Vital Signs/I&O Vital Sign - Last 12Hours 12/20/17 12/20/17 12/20/17 12/20/17 11:11 11:11 11:25 13:57 Temp 101.3 Pulse 111 Resp 23 B/P (MAP) 133/105 (114) Pulse Ox 100 98 98 94 O2 Delivery T Piece T Piece Nasal Cannula Nasal Cannula O2 Flow Rate 6.00 3.00 3.00 FiO2 100 Capillary Refill : Less Than 3 Seconds Blood Pressure Mean: 83 Point of Care Testing Finger Stick Blood Glucose: 212 Blood Glucose Action Taken: RN Notified Progress Note : Progress Note DECREASED WHEEZING AND INCREASED AERATION AFTER NEB TREATMENTS, AND STEROIDS, BUT PT STATES SHE DOES NOT FEEL LIKE SHE IS ANY BETTER O2 SATS REMAINED IN MID TO UPPER 90'S DURING ER STAY NO DETERIORATION IN PT'S CONDITION DURING ER STAY ECG Initial ECG Impression Date: Dec 20, 2017 Initial ECG Impression Time: 11:36 Initial ECG Rate: 114 Initial ECG Rhythm: S.Tach Diagnostic Imaging Comments CXR--VERY LIMITED EXAM, BORDERLINE CARDIOMEGAL-PER RADIOLOGIST REPORT @ 1240 CT CHEST ANGIOGRAM--NO P.E. BUT HAS ATELECTASIS/INFILTRATE RIGHT PERIHILAR AND INFRAHILAR AREA--PER RADIOLOGIST REPORT @ 1352 Reviewed: Reviewed by Me Departure Communication (Admissions) Progress Notes 1459--SPOKE WITH DR. ROBERTS, ACCEPTS PT FOR ADMIT. ADVISES TO CONSULT CARDIOLOGY Impression Impression: Primary Impression: RIGHT PERIHILAR PNEUMONIA Additional Impressions: COPD exacerbation Sepsis Type 2 diabetes mellitus Smoker HTN (hypertension) Disposition: ADMITTED INPATIENT Condition: Improved Departure-Patient Inst. Referrals: JUDITH KAUFMAN DO (PCP) Primary Care Physician TONY RAGLAND DO Dec 21, 2017 08:32
[2017-12-21] MEDS ORDERED: NON-FORMULARY MEDICATION 1 EA EA (Liraglutide (Victoza 2-Pak) 1.8 MG) SQ SCH (09:00)
--- NOTE | 2017-12-21 10:31 | Cardiology Progress Note ---
Cardiology SOAP Progress Note Subjective: Significantly improved. Objective: I&O/Vital Signs Vital Sign - Last 12Hours 12/21/17 12/21/17 12/21/17 12/21/17 11:00 14:40 16:00 18:48 Temp 98.6 97.8 Pulse 100 97 Resp 22 20 B/P (MAP) 124/58 (80) 117/56 (76) Pulse Ox 94 92 94 94 O2 Delivery Nasal Cannula Nasal Cannula Nasal Cannula Nasal Cannula O2 Flow Rate 3.00 3.00 3.00 3.00 12/21/17 12/21/17 18:54 20:00 Temp 98.1 Pulse 93 Resp 22 B/P (MAP) 117/54 (75) Pulse Ox 95 95 O2 Delivery Nasal Cannula Nasal Cannula O2 Flow Rate 3.00 3.00 Intake and Output 12/21/17 00:00 Intake Total 790 ml Output Total 1300 ml Balance -510 ml Weight (Pounds): 258 Weight (Ounces): 0.0 Weight (Calculated Kilograms): [id number] Constitutional: No appears stated age, AAO x 3, No apparent distress, No PERRL , No well-developed, No well-nourished, No other Respiratory: No accessory muscle use, No respiratory distress, No chest tender , No chest expansion is symmetric, chest is bilaterally symmetric, No lungs clear to percussion, lungs clear to auscultation, No crackles, No rhonchi, No rales, No stridor, No wheezing, No pleural rub, No other Cardiovascular: regular rate-rhythm, S1 and S2 Gastrointestional: No tender, No soft, No round, No distended, No pulsatile mass, No organomegaly, No guarding, No rebound, No tenderness, No hernia, No mass, No audible bowel sounds, No abnormal bowel sounds, No abdominal bruits, No spleenomegaly, No other Extremities: No normal range of motion, No non-tender, No normal inspection, No pedal edema, No calf tenderness, No normal capillary refill, No pelvis stable , No calf tenderness, No inflammation, No pedal edema, No slow capillary refill , No swelling, No other, No abrasion, No clubbing, No cyanosis, No ecchymosis, No laceration, No no lower extremity edema bilateral, No significant edema, No tenderness, No wound Neurologic/Psychiatric: No primary care coordinator II-XII nml as tested, No no motor/sensory deficits, alert, normal mood/affect, oriented x 3, No abnormal cerebellar tests , No abnormal primary care coordinator II-XII, No abnormal gait, No aphasia, No EOM palsy, No facial droop, No motor weakness, No sensory deficit, No depressed affect, No disoriented x 3, No other, No grossly intact, No power is 5/5 both on sides Skin: No normal color, No warm/dry, No cyanosis, No cool, No diaphoresis, No damp, No ecchymosis, No jaundice, No mottled, No pallor, No rash, No tattoos/ piercings, No ulcerations, No rash on exposed areas, No ulcerations on exposed areas, No other Results/Procedures: Labs Laboratory Tests 12/21/17 04:55: White Blood Count 17.8H, Red Blood Count 4.85, Hemoglobin 13.3, Hematocrit 41, Mean Corpuscular Volume 84, Mean Corpuscular Hemoglobin 27, Mean Corpuscular Hemoglobin Concent 33, Red Cell Distribution Width 15.7H, Platelet Count 189, Mean Platelet Volume 10.4, Neutrophils (%) (Auto) 92H, Lymphocytes (%) (Auto) 7L , Monocytes (%) (Auto) 2, Eosinophils (%) (Auto) 0, Basophils (%) (Auto) 0, Neutrophils # (Auto) 16.3H, Lymphocytes # (Auto) 1.2, Monocytes # (Auto) 0.3, Eosinophils # (Auto) 0.0, Basophils # (Auto) 0.0, Sodium Level 137, Potassium Level 4.0, Chloride Level 98, Carbon Dioxide Level 26, Anion Gap 13, Blood Urea Nitrogen 19H, Creatinine 0.90, Estimat Glomerular Filtration Rate > 60, BUN/ Creatinine Ratio 21, Glucose Level 229H, Calcium Level 9.5, Total Bilirubin 0.6 , Aspartate Amino Transf (AST/SGOT) 18, Alanine Aminotransferase (ALT/SGPT) 19, Alkaline Phosphatase 78, Total Protein 7.0, Albumin 4.1 12/21/17 05:20: Glucometer 212H 12/21/17 11:08: Glucometer 230H 12/21/17 15:26: Glucometer 259H 12/21/17 20:47: Glucometer 323H Microbiology 12/20/17 Blood Culture - Preliminary, Resulted No growth 12/20/17 Influenza Types A,B Antigen (SUMAN) - Final, Complete A/P: Assessment/Dx: COPD exacerbation, pneumonia, Shortness of breath, Sinus tachycardia, Hypertension, Hyperlipidemia, Hypothyroidism. Plan: Shortness of breath is probably multifactorial. Likely secondary to COPD exacerbation and pneumonia. Diastolic heart failure cannot be ruled out. However since BNP is very low it is unlikely to be congestive heart failure. The patient is also euvolemic on examination. Acute coronary syndrome was ruled out with serial troponin. Nebulization, IV steroids, IV antibiotics. Sinus tachycardia, likely secondary to COPD exacerbation. Improved. Hypertension: Continue outpatient medication. Hyperlipidemia: Continue statin therapy. Echocardiogram. Can follow with Cardiology as outpatient, if required. Thank you for your consultation. Please call me if you have any questions. Janine Zapata MD, FACP, FACC, FSCAI, FHRS, CCDS Interventional Cardiology Cardiac Electrophysiology Vascular Medicine and Endovascular Interventions Focused Exam Evaluation Lactate Level Laboratory Tests 12/20/17 11:11: Lactic Acid Level 1.45 Adolfo ZAPATA MD Dec 21, 2017 10:31 am
[2017-12-21 11:00] VITALS: BP 124/58
--- NOTE | 2017-12-21 12:51 | History & Physical ---
History of Present Illness History of Present Illness Reason for visit/HPI CC: Dyspnea HPI: This is a 67-year-old white female patient of Dr. KAUFMAN who presented to the emergency room with increased shortness of breath. She uses oxygen 24/7 at home. She reported a fever that was 101.3 when she arrived in the ER patient had extensive workup and CT scan revealed right parahilar region infiltrate so she was placed on pneumonia protocol all cultures were obtained and empiric antibiotics were started. IV Solu-Medrol was initiated due to acute exacerbation of COPD. Patient reports that her sugars are higher since she doesn't have the Pitocin here that she takes at home but I told her that the IV steroids will make her sugars go up so I did decrease that to 60 MG every 8 hours. I checked all of her home medications reconciled all and restarted all. She denied chest pain but the elevated BNP level was concerning enough to consult cardiology which is appreciated. Date of Admission Dec 20, 2017 at 14:00 Date Seen by Provider: Dec 21, 2017 Time Seen by Provider: 11:30 I consulted on this patient on 12/21/17 12:51 Attending Physician Hilda Kaufman DO Admitting Physician Hilda Kaufman DO Consult Allergies and Home Medications Allergies Coded Allergies: No Known Drug Allergies (Verified , 05/08/09) Home Medications Aclidinium [place] 400 Mcg Aer.pow.ba, 1 PUFF INH BID, (Reported) Albuterol Sulfate 1 Puff Puff, 2 PUFF IH Q4H PRN for SHORTNESS OF BREATH, ( Reported) 1 PUFF = 90 MCG Albuterol Sulfate 2.5 Mg/3 Ml Vial.neb, 2.5 MG NEB Q4H PRN for SHORTNESS OF BREATH, (Reported) Alprazolam 0.5 Mg Tablet, 0.5 MG PO TID, (Reported) Aripiprazole 10 Mg Tablet, 10 MG PO BID, (Reported) Aspirin 81 Mg Tablet.dr, 81 MG PO DAILY, (Reported) Atorvastatin Calcium 20 Mg Tablet, 20 MG PO HS, (Reported) Carvedilol 12.5 Mg Tablet, 12.5 MG PO BID, (Reported) Duloxetine HCl 60 Mg Capsule.dr, 60 MG PO BID, (Reported) Fluticasone/Salmeterol 1 Each Blst.w.dev, 1 PUFF IH BID, (Reported) Furosemide 40 Mg Tablet, 60 MG PO DAILY, (Reported) Gabapentin 400 Mg Capsule, 400 MG PO DAILY, (Reported) TAKES 400MG AM AND 800MG AT BEDTIME Gabapentin 400 Mg Capsule, 800 MG PO HS, (Reported) TAKES 400MG AM AND 800MG AT BEDTIME Levothyroxine Sodium 150 Mcg Tablet, 150 MCG PO DAILY, (Reported) Liraglutide 0.6 Mg/0.1 Ml Pen.injctr, 1.8 MG SQ DAILY, (Reported) Multivitamin with Minerals 1 Each Tablet, 1 TAB PO DAILY, (Reported) Nystatin 60 Gm Powder, TP TID, (Reported) [place] 3 Polyunsat Fatty Acids 1,000 Mg Cap, 1,000 MG PO DAILY, (Reported) Pantoprazole Sodium 40 Mg Tablet.dr, 40 MG PO BID, (Reported) Potassium Chloride 20 Meq Tab.er.prt, 60 MEQ PO DAILY, (Reported) Spironolactone 25 Mg Tablet, 25 MG PO DAILY, (Reported) Patient Home Medication List Home Medication List Reviewed: Yes Past Chyiffe-[id number]-Pfnrms Hx Past Med/Social Hx: Reviewed Nursing Past Med/Soc Hx, Reviewed and Corrections made Patient Social History Marrital Status: single Employed/Student: retired Alcohol Use: Denies Use Recreational Drug Use: No Smoking Status: Current Everyday Smoker (1/2-1 PPD) Type Used: Cigarettes Physical Abuse Screen: No Sexual Abuse: No Recent Foreign Travel: No Contact w/other who traveled: No Recent Hopitalizations: Yes (JUNE 2017) Recent Infectious Disease Expo: No Immunizations Up To Date Pediatric: No Date of Pneumonia Vaccine: Jul 22, 2016 Date of Influenza Vaccine: Jul 22, 2017 Seasonal Allergies Seasonal Allergies: Yes Past Medical History Surgeries: 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, Tonsillectomy, Tubal Ligation Respiratory: COPD, Pneumonia, Sleep Apnea Currently Using CPAP: Yes Currently Using BIPAP: No Cardiac: Chronic Edema/Swelling, High Cholesterol, Hypertension Sexually Transmitted Disease: No HIV/AIDS: No Female Reproductive Disorders: Denies 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, Tubal Ligation, Menopausal Genitourinary: Kidney Infection Gastrointestinal: Gastroesophageal Reflux, Hiatal Hernia Musculoskeletal: Degenerate Disk Disease, Arthritis, Fibromyalgia, Chronic Back Pain Endocrine: Hypothyroidsim, Diabetes, Non-Insulin dep Are Your Blood Sugars Over 250: Yes Loss of Vision: Denies Hearing Impairment: Denies Psychosocial: Anxiety, Depression History of Blood Disorders: No Adverse Reaction to Blood [place]: No Family History Diabetes mellitus 19 MOTHER FH: COPD (chronic obstructive pulmonary disease) 19 FATHER FH: heart attack 19 FATHER FH: melanoma 19 FATHER FH: stomach cancer 19 MOTHER No Pertinent Family Hx, Heart Disease, Hypertension Constitutional: see HPI, dizziness, fever, malaise, weakness EENTM: no symptoms reported Respiratory: dyspnea on exertion, orthopnea, short of breath, wheezing Cardiovascular: no symptoms reported Gastrointestinal: no symptoms reported Genitourinary: no symptoms reported Musculoskeletal: no symptoms reported Skin: no symptoms reported Psychiatric/Neurological: No Symptoms Reported All Other Systems Reviewed Negative Unless Noted: Yes Physical Exam Vital Signs Vital Signs - First Documented 12/20/17 11:11 Temp 101.3 Pulse 111 Resp 23 B/P (MAP) 133/105 (114) Pulse Ox 100 O2 Delivery T Piece O2 Flow Rate 6.00 FiO2 100 Capillary Refill : Less Than 3 Seconds General Appearance: No Apparent Distress, WD/WN, Chronically ill, Obese Eyes: Bilateral Eye Normal Inspection, Bilateral Eye PERRL, Bilateral Eye EOMI HEENT: PERRL/EOMI, TMs Normal, Normal ENT Inspection, Pharynx Normal Neck: Full Range of Motion, Normal Inspection, Non Tender, Supple, Carotid Bruit Respiratory: Chest Non Tender, No Accessory Muscle Use, No Respiratory Distress , Crackles, Decreased Breath Sounds, Wheezing Cardiovascular: Regular Rate, Rhythm, No Edema, No Gallop, No JVD, No Murmur, Normal Peripheral Pulses Gastrointestinal: Normal Bowel Sounds, No Organomegaly, No Pulsatile Mass, Non Tender, Soft Back: Normal Inspection, No CVA Tenderness, No Vertebral Tenderness Extremity: Normal Capillary Refill, Normal Inspection, Normal Range of Motion, Non Tender, No Calf Tenderness, No Pedal Edema Neurologic/Psychiatric: Alert, Oriented x3, No Motor/Sensory Deficits, Normal Mood/Affect Skin: Normal Color, Warm/Dry Lymphatic: No Adenopathy Assessment/Plan Assessment and Plan Assessment: Right perihilar pneumonia with acute exacerbation of COPD Plan: IV steroids IV antibiotics Nebulizers O2 Reconcile all home meds Sliding scale Monitor closely Problems: (1) Pneumonia Status: Acute (2) COPD exacerbation Status: Acute (3) Sepsis Status: Acute (4) Smoker Status: Chronic (5) Type 2 diabetes mellitus Status: Chronic (6) Urinary tract infection Status: Acute (7) HTN (hypertension) Status: Chronic Admission Diagnosis Admission Status: Inpatient Order (span 2 midnights) Reason for Inpatient Admission: Severe COPD requires multiple days of IV antibiotics and IV steroids Clinical Quality Measures DVT/VTE Risk/Contraindication: Risk Factor Score Per Nursin RFS Level Per Nursing on Admit: 4+=Very High Problem Qualifiers (1) Pneumonia: Pneumonia type: due to unspecified organism Laterality: right Lung location : middle lobe of lung Qualified Codes: J18.1 - Lobar pneumonia, unspecified organism (2) Sepsis: Sepsis type: sepsis due to unspecified organism Qualified Codes: A41.9 - Sepsis, unspecified organism (3) Type 2 diabetes mellitus: Diabetes mellitus complication status: without complication Diabetes mellitus assistant terminal manager insulin use: without assistant terminal manager use Qualified Codes: E11.9 - Type 2 diabetes mellitus without complications (4) Urinary tract infection: Urinary tract infection type: site unspecified Hematuria presence: without hematuria Qualified Codes: N39.0 - Urinary tract infection, site not specified (5) HTN (hypertension): Hypertension type: essential hypertension Qualified Codes: I10 - Essential ( primary) hypertension EVANGELISTA ROBERTS DO Dec 21, 2017 12:51
[2017-12-21] MEDS: UMECLIDINIUM BROMIDE (INCRUSE ELLIPTA) 7'S IH SCH (14:39)
[2017-12-21] MEDS: cefTRIAXone 1 GM/NS 100 ML IVPB IV SCH ×2 (15:09)
[2017-12-21] MEDS ORDERED: MAGN400T39 PO ×2 (15:17)
[2017-12-21] MEDS ORDERED: FURO40TA4 PO ×2 (15:17)
[2017-12-21] MEDS ORDERED: SITA1TBM4 PO ×2 (15:17)
[2017-12-21] MEDS ORDERED: EMPA25TA PO ×2 (15:17)
[2017-12-21 16:00] VITALS: BP 117/56
[2017-12-21 20:00] VITALS: BP 117/54
[2017-12-21] MEDS: ATORVASTATIN 20 MG (LIPITOR) TABLET PO SCH (22:28)
[2017-12-22] VITALS (7 sets, daily range): BP systolic 113–140; BP diastolic 56–81
[2017-12-22] MEDS: methylPREDNISolone 125 MG (Solu-MEDROL) VIAL IV SCH ×2 (01:11→06:55)
[2017-12-22] MEDS: RT-ALBUTEROL/IPRATROPIUM 3 ML (DUONEB) VIAL INH SCH ×6 (01:31→22:51)
[2017-12-22] MEDS: DOXYCYCLINE INJECTION 100 MG in NS (IVPB) 100 ML IV SCH (06:00)
[2017-12-22 06:25] LABS: BASOPHILS % (AUTO) 0 % (0-10); EOSINOPHILS % (AUTO) 0 % (0-10); HEMATOCRIT 39 % (35-52); HEMOGLOBIN 12.8 G/DL (11.5-16.0); LYMPHOCYTES % (AUTO) 8 % (12-44); MEAN CORPUSCULAR HEMOGLOBIN 28 PG (25-34); MEAN CORPUSCULAR HGB CONC 33 G/DL (32-36); MEAN CORPUSCULAR VOLUME 85 FL (80-99); MEAN PLATELET VOLUME 10.9 FL (7.4-10.4); MONOCYTES # (AUTO) 0.3 X 10^3 (0.0-1.0); MONOCYTES % (AUTO) 2 % (0-12); NEUTROPHILS # (AUTO) 12.2 X 10^3 (1.8-7.8); NEUTROPHILS % (AUTO) 90 % (42-75); PLATELET COUNT 205 10^3/uL (130-400); RED BLOOD COUNT 4.65 10^6/uL (4.35-5.85); RED CELL DISTRIBUTION WIDTH 15.8 % (10.0-14.5); WHITE BLOOD COUNT 13.6 10^3/uL (4.3-11.0)
[2017-12-22 06:46] LABS: BILIRUBIN,TOTAL 0.5 MG/DL (0.1-1.0); CALCIUM 9.3 MG/DL (8.5-10.1); CREATININE SERUM 0.97 MG/DL (0.60-1.30); POTASSIUM 3.9 MMOL/L (3.6-5.0); TOTAL PROTEIN 6.7 GM/DL (6.4-8.2)
[2017-12-22] MEDS: RT-ADVAIR HFA 115/21 MCG PER PUFF IH SCH ×2 (06:52→18:32)
[2017-12-22] MEDS: inSUlin (REGULAR) HUMAN 1 UNIT/0.01 ML (CHARGE PER UNIT) SC SCH ×4 (06:55→22:29)
[2017-12-22] MEDS: LEVOTHYROXINE 150 MCG (LEVOTHROID) TAB PO SCH (06:55)
[2017-12-22] MEDS: UMECLIDINIUM BROMIDE (INCRUSE ELLIPTA) 7'S IH SCH (07:04)
[2017-12-22] MEDS: GABAPENTIN 400 MG (NEURONTIN) CAP PO SCH ×2 (09:13→22:30)
[2017-12-22] MEDS: PANTOPRAZOLE 40 MG (PROTONIX) TAB PO SCH ×2 (09:13→22:30)
[2017-12-22] MEDS: DULoxetine 30 MG (CYMBALTA) CAP PO SCH ×2 (09:13→22:30)
[2017-12-22] MEDS: ALPRAZolam 0.5 MG (XANAX) TAB PO SCH ×3 (09:13→22:30)
[2017-12-22] MEDS: CARVEDILOL 12.5 MG (COREG) TABLET PO SCH ×2 (09:13→22:30)
[2017-12-22] MEDS: OMEGA 3 (FISH OIL) 1000 MG CAP PO SCH (09:13)
[2017-12-22] MEDS: MULTIVIT W/MINERALS TAB (THERAGRAN M) PO SCH (09:13)
[2017-12-22] MEDS: ARIPIPRAZOLE 10 MG (ABILIFY) TAB PO SCH ×2 (09:13→22:30)
[2017-12-22] MEDS: ASPIRIN E.C. 81 MG (ECOTRIN) TAB PO SCH (09:13)
[2017-12-22] MEDS: MICONAZOLE 2% POWDER (DESENEX AF) 90 GM TOP SCH ×2 (09:16→22:30)
--- NOTE | 2017-12-22 12:34 | Cardiology Progress Note ---
Cardiology SOAP Progress Note Subjective: No significant cardiac symptoms. Objective: I&O/Vital Signs Vital Sign - Last 12Hours 12/22/17 12/22/17 12/22/17 12/22/17 01:31 04:00 06:52 06:54 Temp 97.9 Pulse 90 Resp 20 B/P (MAP) 128/59 (82) Pulse Ox 96 94 94 94 O2 Delivery Nasal Cannula Nasal Cannula Nasal Cannula Nasal Cannula O2 Flow Rate 3.00 3.00 3.00 3.00 12/22/17 12/22/17 12/22/17 12/22/17 07:04 08:38 09:12 10:19 Temp 98.7 Pulse 97 Resp 20 B/P (MAP) 113/58 (76) Pulse Ox 94 95 94 O2 Delivery Nasal Cannula Nasal Cannula Nasal Cannula Nasal Cannula O2 Flow Rate 3.00 3.00 3.00 3.00 Intake and Output 12/22/17 00:00 Intake Total 1450 ml Output Total 2300 ml Balance -850 ml Weight (Pounds): 258 Weight (Ounces): 0.0 Weight (Calculated Kilograms): 117.475708 Constitutional: No appears stated age, AAO x 3, No apparent distress, No PERRL , No well-developed, No well-nourished, No other Respiratory: No accessory muscle use, No respiratory distress, No chest tender , No chest expansion is symmetric, chest is bilaterally symmetric, No lungs clear to percussion, lungs clear to auscultation, No crackles, No rhonchi, No rales, No stridor, No wheezing, No pleural rub, No other Cardiovascular: regular rate-rhythm, S1 and S2 Gastrointestional: No tender, No soft, No round, No distended, No pulsatile mass, No organomegaly, No guarding, No rebound, No tenderness, No hernia, No mass, No audible bowel sounds, No abnormal bowel sounds, No abdominal bruits, No spleenomegaly, No other Extremities: No normal range of motion, No non-tender, No normal inspection, No pedal edema, No calf tenderness, No normal capillary refill, No pelvis stable , No calf tenderness, No inflammation, No pedal edema, No slow capillary refill , No swelling, No other, No abrasion, No clubbing, No cyanosis, No ecchymosis, No laceration, No no lower extremity edema bilateral, No significant edema, No tenderness, No wound Neurologic/Psychiatric: No desktop support specialist II-XII nml as tested, No no motor/sensory deficits, alert, normal mood/affect, oriented x 3, No abnormal cerebellar tests , No abnormal desktop support specialist II-XII, No abnormal gait, No aphasia, No EOM palsy, No facial droop, No motor weakness, No sensory deficit, No depressed affect, No disoriented x 3, No other, No grossly intact, No power is 5/5 both on sides Skin: No normal color, No warm/dry, No cyanosis, No cool, No diaphoresis, No damp, No ecchymosis, No jaundice, No mottled, No pallor, No rash, No tattoos/ piercings, No ulcerations, No rash on exposed areas, No ulcerations on exposed areas, No other Results/Procedures: Labs Laboratory Tests 12/21/17 15:26: Glucometer 259H 12/21/17 20:47: Glucometer 323H 12/22/17 05:34: White Blood Count 13.6H, Red Blood Count 4.65, Hemoglobin 12.8, Hematocrit 39, Mean Corpuscular Volume 85, Mean Corpuscular Hemoglobin 28, Mean Corpuscular Hemoglobin Concent 33, Red Cell Distribution Width 15.8H, Platelet Count 205, Mean Platelet Volume 10.9H, Neutrophils (%) (Auto) 90H, Lymphocytes (%) (Auto) 8L, Monocytes (%) (Auto) 2, Eosinophils (%) (Auto) 0, Basophils (%) (Auto) 0, Neutrophils # (Auto) 12.2H, Lymphocytes # (Auto) 1.0, Monocytes # (Auto) 0.3, Eosinophils # (Auto) 0.0, Basophils # (Auto) 0.0, Sodium Level 135, Potassium Level 3.9, Chloride Level 96L, Carbon Dioxide Level 26, Anion Gap 13, Blood Urea Nitrogen 32H, Creatinine 0.97, Estimat Glomerular Filtration Rate 57, BUN/ Creatinine Ratio 33, Glucose Level 252H, Calcium Level 9.3, Total Bilirubin 0.5 , Aspartate Amino Transf (AST/SGOT) 19, Alanine Aminotransferase (ALT/SGPT) 18, Alkaline Phosphatase 72, Total Protein 6.7, Albumin 4.0 12/22/17 05:48: Glucometer 241H 12/22/17 10:40: Glucometer 255H Microbiology 12/20/17 Blood Culture - Preliminary, Resulted No growth 12/20/17 Influenza Types A,B Antigen (SUMAN) - Final, Complete A/P: Assessment/Dx: COPD exacerbation, pneumonia, Shortness of breath, Sinus tachycardia, Hypertension, Hyperlipidemia, Hypothyroidism. Plan: Shortness of breath is probably multifactorial. Likely secondary to COPD exacerbation and pneumonia. Diastolic heart failure cannot be ruled out. However since BNP is very low it is unlikely to be congestive heart failure. The patient is also euvolemic on examination. Acute coronary syndrome was ruled out with serial troponin. Nebulization, IV steroids, IV antibiotics. Sinus tachycardia, likely secondary to COPD exacerbation. Improved. Hypertension: Continue outpatient medication. Hyperlipidemia: Continue statin therapy. Echocardiogram. Can follow with Cardiology as outpatient, if required. Thank you for your consultation. Please call me if you have any questions. Janine Zapata MD, FACP, FACC, FSCAI, FHRS, CCDS Interventional Cardiology Cardiac Electrophysiology Vascular Medicine and Endovascular Interventions Focused Exam Evaluation Lactate Level Laboratory Tests 12/20/17 11:11: Lactic Acid Level 1.45 Adolfo ZAPATA MD Dec 22, 2017 12:34
[2017-12-22] MEDS: cefTRIAXone 1 GM/NS 100 ML IVPB IV SCH ×2 (13:13)
[2017-12-22] MEDS: DOXYCYCLINE 100 MG (VIBRAMYCIN) TABLET PO SCH (16:00)
--- NOTE | 2017-12-22 18:39 | Progress Note (SOAP) ---
Subjective Date Seen by Provider: Dec 22, 2017 Time Seen by Provider: 12:30 Subjective/Events-last exam Fwup pneumonia, COPD exacerbation, DMII, Hypertension. Feeling much better. Wants to go home. Focused Exam Evaluation Lactate Level Laboratory Tests 12/20/17 11:11: Lactic Acid Level 1.45 Objective Exam Vital Signs Date Time Temp Pulse Resp B/P (MAP) Pulse Ox O2 Delivery O2 Flow Rate FiO2 12/22/17 18:33 95 Nasal Cannula 3.00 12/22/17 16:00 99.0 88 18 140/81 (100) 96 Nasal Cannula 3.00 12/22/17 14:47 95 Nasal Cannula 3.00 12/22/17 12:59 98.5 101 20 123/66 (85) 93 Nasal Cannula 3.00 12/22/17 10:19 94 Nasal Cannula 3.00 12/22/17 09:12 Nasal Cannula 3.00 12/22/17 08:38 98.7 97 20 113/58 (76) 95 Nasal Cannula 3.00 12/22/17 07:04 94 Nasal Cannula 3.00 12/22/17 06:54 94 Nasal Cannula 3.00 12/22/17 06:52 94 Nasal Cannula 3.00 12/22/17 04:00 97.9 90 20 128/59 (82) 94 Nasal Cannula 3.00 12/22/17 01:31 96 Nasal Cannula 3.00 12/22/17 00:00 97.9 85 20 114/56 (75) 97 Nasal Cannula 3.00 12/21/17 21:50 95 Nasal Cannula 3.00 12/21/17 21:00 95 Nasal Cannula 4.00 12/21/17 20:00 98.1 93 22 117/54 (75) 95 Nasal Cannula 3.00 12/21/17 18:54 95 Nasal Cannula 3.00 12/21/17 18:48 94 Nasal Cannula 3.00 I & O 12/22/17 07:00 Intake Total 1700 ml Output Total 3175 ml Balance -1475 ml Capillary Refill : Less Than 3 Seconds General Appearance: No Apparent Distress Neck: Supple Respiratory: Lungs Clear Cardiovascular: Regular Rate, Rhythm Gastrointestinal: normal bowel sounds, non tender, soft Extremity: Non Tender, No Calf Tenderness, No Pedal Edema Neurologic/Psychiatric: Alert, Oriented x3 Results Lab Laboratory Tests 12/21/17 20:47: Glucometer 323H 12/22/17 05:34: White Blood Count 13.6H, Red Blood Count 4.65, Hemoglobin 12.8, Hematocrit 39, Mean Corpuscular Volume 85, Mean Corpuscular Hemoglobin 28, Mean Corpuscular Hemoglobin Concent 33, Red Cell Distribution Width 15.8H, Platelet Count 205, Mean Platelet Volume 10.9H, Neutrophils (%) (Auto) 90H, Lymphocytes (%) (Auto) 8L, Monocytes (%) (Auto) 2, Eosinophils (%) (Auto) 0, Basophils (%) (Auto) 0, Neutrophils # (Auto) 12.2H, Lymphocytes # (Auto) 1.0, Monocytes # (Auto) 0.3, Eosinophils # (Auto) 0.0, Basophils # (Auto) 0.0, Sodium Level 135, Potassium Level 3.9, Chloride Level 96L, Carbon Dioxide Level 26, Anion Gap 13, Blood Urea Nitrogen 32H, Creatinine 0.97, Estimat Glomerular Filtration Rate 57, BUN/ Creatinine Ratio 33, Glucose Level 252H, Calcium Level 9.3, Total Bilirubin 0.5 , Aspartate Amino Transf (AST/SGOT) 19, Alanine Aminotransferase (ALT/SGPT) 18, Alkaline Phosphatase 72, Total Protein 6.7, Albumin 4.0 12/22/17 05:48: Glucometer 241H 12/22/17 10:40: Glucometer 255H 12/22/17 15:46: Glucometer 277H Microbiology 12/20/17 Blood Culture - Preliminary, Resulted No growth 12/20/17 Influenza Types A,B Antigen (SUMAN) - Final, Complete Assessment/Plan Assessment/Plan Assess & Plan/Chief Complaint 1. Pneumonia--continue IV abx 2. COPD exacerbation--continue SVNs and now on prednisone 3. Hypertension--stable 4. DMII--on SSI Clinical Quality Measures DVT/VTE Risk/Contraindication: Risk Factor Score Per Nursin RFS Level Per Nursing on Admit: 4+=Very High JUDITH KAUFMAN DO Dec 22, 2017 6:39 pm
[2017-12-22] MEDS: ATORVASTATIN 20 MG (LIPITOR) TABLET PO SCH (22:30)
[2017-12-23] MEDS: RT-ALBUTEROL/IPRATROPIUM 3 ML (DUONEB) VIAL INH SCH ×4 (02:20→14:30)
[2017-12-23 03:44] VITALS: BP 147/85
[2017-12-23 05:38] LABS: BASOPHILS % (AUTO) 0 % (0-10); EOSINOPHILS # (AUTO) 0.3 10^3/uL (0.0-0.3); EOSINOPHILS % (AUTO) 3 % (0-10); HEMATOCRIT 43 % (35-52); HEMOGLOBIN 14.1 G/DL (11.5-16.0); LYMPHOCYTES # (AUTO) 1.7 X 10^3 (1.0-4.0); LYMPHOCYTES % (AUTO) 15 % (12-44); MEAN CORPUSCULAR HEMOGLOBIN 28 PG (25-34); MEAN CORPUSCULAR HGB CONC 33 G/DL (32-36); MEAN CORPUSCULAR VOLUME 83 FL (80-99); MEAN PLATELET VOLUME 11.1 FL (7.4-10.4); MONOCYTES # (AUTO) 0.9 X 10^3 (0.0-1.0); MONOCYTES % (AUTO) 8 % (0-12); NEUTROPHILS # (AUTO) 8.6 X 10^3 (1.8-7.8); NEUTROPHILS % (AUTO) 75 % (42-75); PLATELET COUNT 197 10^3/uL (130-400); RED BLOOD COUNT 5.12 10^6/uL (4.35-5.85); RED CELL DISTRIBUTION WIDTH 16.1 % (10.0-14.5); WHITE BLOOD COUNT 11.4 10^3/uL (4.3-11.0)
[2017-12-23 06:30] VITALS: BP 147/85
[2017-12-23] MEDS: LEVOTHYROXINE 150 MCG (LEVOTHROID) TAB PO SCH (06:32)
[2017-12-23] MEDS: DOXYCYCLINE 100 MG (VIBRAMYCIN) TABLET PO SCH ×2 (06:32→16:44)
[2017-12-23] MEDS: RT-ADVAIR HFA 115/21 MCG PER PUFF IH SCH (06:32)
[2017-12-23] MEDS: UMECLIDINIUM BROMIDE (INCRUSE ELLIPTA) 7'S IH SCH (06:32)
[2017-12-23] MEDS: inSUlin (REGULAR) HUMAN 1 UNIT/0.01 ML (CHARGE PER UNIT) SC SCH ×3 (06:36→16:44)
[2017-12-23] MEDS ORDERED: predniSONE 20 MG TAB PO SCH (07:00)
[2017-12-23 08:00] VITALS: BP 119/75
[2017-12-23] MEDS: MICONAZOLE 2% POWDER (DESENEX AF) 90 GM TOP SCH (09:02)
[2017-12-23] MEDS: MULTIVIT W/MINERALS TAB (THERAGRAN M) PO SCH (09:02)
[2017-12-23] MEDS: DULoxetine 30 MG (CYMBALTA) CAP PO SCH (09:02)
[2017-12-23] MEDS: PANTOPRAZOLE 40 MG (PROTONIX) TAB PO SCH (09:02)
[2017-12-23] MEDS: CARVEDILOL 12.5 MG (COREG) TABLET PO SCH (09:02)
[2017-12-23] MEDS: ASPIRIN E.C. 81 MG (ECOTRIN) TAB PO SCH (09:02)
[2017-12-23] MEDS: OMEGA 3 (FISH OIL) 1000 MG CAP PO SCH (09:02)
[2017-12-23] MEDS: ALPRAZolam 0.5 MG (XANAX) TAB PO SCH ×2 (09:02→12:48)
[2017-12-23] MEDS: GABAPENTIN 400 MG (NEURONTIN) CAP PO SCH (09:02)
[2017-12-23] MEDS: ARIPIPRAZOLE 10 MG (ABILIFY) TAB PO SCH (09:02)
--- NOTE | 2017-12-23 10:57 | Cardiology Progress Note ---
Cardiology SOAP Progress Note Subjective: No shortness of breath. Objective: I&O/Vital Signs Vital Sign - Last 12Hours 12/22/17 12/23/17 12/23/17 12/23/17 23:44 02:21 03:44 06:30 Temp 97.2 97.6 Pulse 77 91 83 Resp 16 9 B/P (MAP) 125/63 (83) 147/85 (105) Pulse Ox 97 95 95 93 O2 Delivery Nasal Cannula Nasal Cannula Nasal Cannula O2 Flow Rate 3.00 3.00 3.00 12/23/17 12/23/17 12/23/17 12/23/17 06:30 08:00 09:49 10:31 Temp 97.5 Pulse 90 Resp 18 B/P (MAP) 119/75 (90) Pulse Ox 93 95 94 O2 Delivery Nasal Cannula Nasal Cannula Nasal Cannula Nasal Cannula O2 Flow Rate 3.00 3.00 3.00 3.00 Intake and Output 12/23/17 00:00 Intake Total 2200 ml Output Total 2350 ml Balance -150 ml Weight (Pounds): 258 Weight (Ounces): 0.0 Weight (Calculated Kilograms): 117.526402 Constitutional: No appears stated age, AAO x 3, No apparent distress, No PERRL , No well-developed, No well-nourished, No other Respiratory: No accessory muscle use, No respiratory distress, No chest tender , No chest expansion is symmetric, chest is bilaterally symmetric, No lungs clear to percussion, lungs clear to auscultation, No crackles, No rhonchi, No rales, No stridor, No wheezing, No pleural rub, No other Cardiovascular: regular rate-rhythm, S1 and S2 Gastrointestional: No tender, No soft, No round, No distended, No pulsatile mass, No organomegaly, No guarding, No rebound, No tenderness, No hernia, No mass, No audible bowel sounds, No abnormal bowel sounds, No abdominal bruits, No spleenomegaly, No other Extremities: No normal range of motion, No non-tender, No normal inspection, No pedal edema, No calf tenderness, No normal capillary refill, No pelvis stable , No calf tenderness, No inflammation, No pedal edema, No slow capillary refill , No swelling, No other, No abrasion, No clubbing, No cyanosis, No ecchymosis, No laceration, No no lower extremity edema bilateral, No significant edema, No tenderness, No wound Neurologic/Psychiatric: No automation sales manager II-XII nml as tested, No no motor/sensory deficits, alert, normal mood/affect, oriented x 3, No abnormal cerebellar tests , No abnormal automation sales manager II-XII, No abnormal gait, No aphasia, No EOM palsy, No facial droop, No motor weakness, No sensory deficit, No depressed affect, No disoriented x 3, No other, No grossly intact, No power is 5/5 both on sides Skin: No normal color, No warm/dry, No cyanosis, No cool, No diaphoresis, No damp, No ecchymosis, No jaundice, No mottled, No pallor, No rash, No tattoos/ piercings, No ulcerations, No rash on exposed areas, No ulcerations on exposed areas, No other Results/Procedures: Labs Laboratory Tests 12/22/17 15:46: Glucometer 277H 12/22/17 21:15: Glucometer 264H 12/23/17 05:28: Glucometer 207H 12/23/17 05:29: White Blood Count 11.4H, Red Blood Count 5.12, Hemoglobin 14.1, Hematocrit 43, Mean Corpuscular Volume 83, Mean Corpuscular Hemoglobin 28, Mean Corpuscular Hemoglobin Concent 33, Red Cell Distribution Width 16.1H, Platelet Count 197, Mean Platelet Volume 11.1H, Neutrophils (%) (Auto) 75, Lymphocytes (%) (Auto) 15 , Monocytes (%) (Auto) 8, Eosinophils (%) (Auto) 3, Basophils (%) (Auto) 0, Neutrophils # (Auto) 8.6H, Lymphocytes # (Auto) 1.7, Monocytes # (Auto) 0.9, Eosinophils # (Auto) 0.3, Basophils # (Auto) 0.0 12/23/17 10:44: Glucometer 276H Microbiology 12/20/17 Blood Culture - Preliminary, Resulted No growth 12/20/17 Influenza Types A,B Antigen (SUMAN) - Final, Complete A/P: Assessment/Dx: COPD exacerbation, pneumonia, Shortness of breath, Sinus tachycardia, Hypertension, Hyperlipidemia, Hypothyroidism. Plan: Shortness of breath is probably multifactorial. Much improved now. Likely secondary to COPD exacerbation and pneumonia. Diastolic heart failure cannot be ruled out. However since BNP is very low it is unlikely to be congestive heart failure. The patient is also euvolemic on examination. Acute coronary syndrome was ruled out with serial troponin. Sinus tachycardia, likely secondary to COPD exacerbation. Improved. Hypertension: Continue outpatient medication. Hyperlipidemia: Continue statin therapy. Echocardiogram. I will follow as an outpatient in 2-3 weeks. Thank you for your consultation. Please call me if you have any questions. Janine Zapata MD, FACP, FACC, FSCAI, FHRS, CCDS Interventional Cardiology Cardiac Electrophysiology Vascular Medicine and Endovascular Interventions Focused Exam Evaluation Lactate Level Laboratory Tests 12/20/17 11:11: Lactic Acid Level 1.45 Adolfo ZAPATA MD Dec 23, 2017 10:57 am
[2017-12-23 12:00] VITALS: BP 145/70
[2017-12-23] MEDS: cefTRIAXone 1 GM/NS 100 ML IVPB IV SCH ×2 (13:36)
[2017-12-23 16:00] VITALS: BP 135/68
[2017-12-23] MEDS ORDERED: DOXY100T2 PO ×2 (18:14)
--- NOTE | 2017-12-23 18:15 | Discharge Inst-Complex ---
PDI Med Rec & Follow Up Appt. New Medications: Doxycycline Hyclate (Doxycycline Hyclate) 100 Mg Tablet 100 MG PO BID@,17, #10 TAB Continued Medications: Aclidinium [place] (Tudorza Pressair) 400 Mcg Aer.pow.ba 1 PUFF INH BID, INHALER Albuterol Sulfate (Proair Hfa) 1 Puff Puff 2 PUFF IH Q4H PRN for SHORTNESS OF BREATH, PUFF 1 PUFF = 90 MCG Albuterol Sulfate (Albuterol Sulfate) 2.5 Mg/3 Ml Vial.neb 2.5 MG NEB Q4H PRN for SHORTNESS OF BREATH, EA Alprazolam (Alprazolam) 0.5 Mg Tablet 0.5 MG PO TID, TAB Aripiprazole (Aripiprazole) 10 Mg Tablet 10 MG PO BID, TAB Aspirin (Aspirin EC) 81 Mg Tablet.dr 81 MG PO DAILY, TAB Atorvastatin Calcium (Atorvastatin Calcium) 20 Mg Tablet 20 MG PO HS, TAB Carvedilol (Carvedilol) 12.5 Mg Tablet 12.5 MG PO BID, TAB Duloxetine HCl (Duloxetine HCl) 60 Mg Capsule.dr 60 MG PO BID, CAP Empagliflozin (Jardiance) 25 Mg Tablet 25 MG PO DAILY Fluticasone/Salmeterol (Advair 250-50 Diskus) 1 Each Blst.w.dev 1 PUFF IH BID LAST FILLED 08/18/18 #3 INHALERS Furosemide (Furosemide) 40 Mg Tablet 60 MG PO DAILY TAKES 1 & 1/2 OF A (40 MG) TABLET Gabapentin (Gabapentin) 400 Mg Capsule 400 MG PO DAILY, CAP Gabapentin (Gabapentin) 400 Mg Capsule 800 MG PO HS, CAP TAKES 2 (400 MG) TABLETS Levothyroxine Sodium (Levothyroxine Sodium) 150 Mcg Tablet 150 MCG PO DAILY, TAB Liraglutide (Victoza 2-Yong) 0.6 Mg/0.1 Ml Pen.injctr 1.8 MG SQ DAILY, VIAL LAST FILLED 08/18/18 #27 ML Magnesium Oxide (Magnesium) 400 Mg Tablet 400 MG PO DAILY, TAB Multivitamin with Minerals (One Daily Plus Minerals) 1 Each Tablet 1 TAB PO DAILY, TAB Nystatin (Nystop) 60 Gm Powder TP TID PRN for RASH, EA [place] 3 Polyunsat Fatty Acids (Fish Oil 1,000 mg Capsule) 1,000 Mg Cap 1000 MG PO DAILY, CAP Pantoprazole Sodium (Pantoprazole Sodium) 40 Mg Tablet.dr 40 MG PO BID, TAB Potassium Chloride (Potassium Chloride) 20 Meq Tab.er.prt 60 MEQ PO DAILY PRN for CRAMPS TAKES 1-3 OF A (20 MEQ) TABLET Sitagliptin Phos/Metformin HCl (Janumet Xr 50-1,000 mg Tablet) 1 Each Tbmp.24hr 1 TAB PO HS Spironolactone (Spironolactone) 25 Mg Tablet 25 MG PO DAILY Prescription: Transmitted to Pharmacy Activity, Diet and PDI Resume Normal Activity: Yes Discharge Diet: Regular Diet Drink 6-8 Glasses of Fluid/Day: Yes Symptoms to Reoprt to : Pain/Pressure in Chest, Cough Up/Vomit Blood, Shortness of Breath For Problems or Questions: Contact Your Physician, Go to Emergency Room CASTILLO BARTON MD Dec 23, 2017 18:15
--- NOTE | 2017-12-23 18:17 | Discharge Summary ---
Diagnosis/Chief Complaint Date of Admission Dec 20, 2017 at 14:00 Date of Discharge Discharge Date: Dec 23, 2017 Discharge Time: 1830 Discharge Summary Discharge Physical Examination Allergies: Coded Allergies: No Known Drug Allergies (Verified , 05/08/09) Vitals & I&Os Vital Signs Date Time Temp Pulse Resp B/P (MAP) Pulse Ox O2 Delivery O2 Flow Rate FiO2 12/23/17 16:00 98.8 86 18 135/68 (90) 92 Nasal Cannula 5.00 12/20/17 11:11 100 Hospital Course Pending Labs Laboratory Tests 12/23/17 10:44: Glucometer 276 12/23/17 16:14: Glucometer 335 Discharge Instructions to patient/family Please see electronic discharge instructions given to patient. Discharge Medications Reviewed and agree with Discharge Medication list on patient's Discharge Instruction sheet Clinical Quality Measures DVT/VTE Risk/Contraindication: Risk Factor Score Per Nursin RFS Level Per Nursing on Admit: 4+=Very High CASTILLO BARTON MD Dec 23, 2017 18:17
== END 2017-12-23 18:42 | disposition home or self-care (01) | DRG 871 ==
LOC: EDUNIT# 11:05 → ER 11:05 → 4TH 14:00
PROVIDERS: ADMIT Internal Medicine; ATTEND Family Medicine
DX: A41.9 Sepsis, unspecified organism (principal); J18.9 Pneumonia, unspecified organism; J44.0 Chronic obstructive pulmonary disease with (acute) lower respiratory infection; J44.1 Chronic obstructive pulmonary disease with (acute) exacerbation; N39.0 Urinary tract infection, site not specified; Z68.41 Body mass index [BMI] 40.0-44.9, adult; R06.03 Acute respiratory distress; E11.9 Type 2 diabetes mellitus without complications; I10 Essential (primary) hypertension; E66.9 Obesity, unspecified; R00.0 Tachycardia, unspecified; E78.00 Pure hypercholesterolemia, unspecified; E78.5 Hyperlipidemia, unspecified; G47.30 Sleep apnea, unspecified; F17.210 Nicotine dependence, cigarettes, uncomplicated; J30.2 Other seasonal allergic rhinitis; E03.9 Hypothyroidism, unspecified; R60.9 Edema, unspecified; K21.9 Gastro-esophageal reflux disease without esophagitis; K44.9 Diaphragmatic hernia without obstruction or gangrene; M19.91 Primary osteoarthritis, unspecified site; M79.7 Fibromyalgia; F41.9 Anxiety disorder, unspecified; F32.9 Major depressive disorder, single episode, unspecified; I87.8 Other specified disorders of veins; Z99.81 Dependence on supplemental oxygen
CPT/HCPCS: 36415; 36600; 71045; 71275; 80053; 81000; 82550; 82553; 82805; 82962; 83605; 83735; 83880; 84145; 84484; 85007; 85025; 85027; 85610; 85730; 87040; 87804; 93005; 93041; 93306; 94640; 94664; 94760; 96365; 96375

== ENCOUNTER 2019-08-01 01:52 | Inpatient (IN) | payer MEDICARE ==
[~2019-08-01] VITALS: Ht 165 cm; Wt 99.5 kg
[2019-08-01] VITALS (20 sets, daily range): BP systolic 98–162; BP diastolic 59–121
[~2019-08-01 01:52] MED LIST changes: -ACLI400A2 INH; +ACLI400A3 INH; +DOXY100T2 PO; -DULO60CA58 PO; +DULO60CA59 PO; +EMPA25TA PO; +FURO-124 PO; +GABA800T10 PO; -GABA800T2 PO; +MAGN400T39 PO; +POTA20PA34 PO; -POTA20PA4 PO; +SITA1TBM4 PO; +SPIR25TA5 PO
[2019-08-01] MEDS ORDERED: NS IV 1000 ML 0 ML ONE (01:59)
[2019-08-01] MEDS ORDERED: RT-ALBUTEROL SULF 2.5 MG/3 ML PRE-MIX VIAL INH STA (02:06)
[2019-08-01] MEDS ORDERED: methylPREDNISolone 125 MG (Solu-MEDROL) VIAL IV STA (02:06)
[2019-08-01] MEDS ORDERED: DEXAMETHASONE 4 MG/ML SDV (DECADRON) IH ONE (02:15)
[2019-08-01] MEDS ORDERED: RT-ALBUTEROL/IPRATROPIUM 3 ML (DUONEB) VIAL INH ONE (02:15)
[2019-08-01 02:19] LABS: BASOPHILS # (AUTO) 0.1 10^3/uL (0.0-0.1); BASOPHILS % (AUTO) 1 % (0-10); EOSINOPHILS # (AUTO) 0.3 10^3/uL (0.0-0.3); EOSINOPHILS % (AUTO) 2 % (0-10); HEMATOCRIT 45 % (35-52); HEMOGLOBIN 13.7 G/DL (11.5-16.0); LYMPHOCYTES # (AUTO) 3.5 X 10^3 (1.0-4.0); LYMPHOCYTES % (AUTO) 22 % (12-44); MEAN CORPUSCULAR HEMOGLOBIN 26 PG (25-34); MEAN CORPUSCULAR HGB CONC 30 G/DL (32-36); MEAN CORPUSCULAR VOLUME 85 FL (80-99); MONOCYTES # (AUTO) 1.5 X 10^3 (0.0-1.0); MONOCYTES % (AUTO) 10 % (0-12); NEUTROPHILS # (AUTO) 10.2 X 10^3 (1.8-7.8); NEUTROPHILS % (AUTO) 66 % (42-75); PLATELET COUNT 267 10^3/uL (130-400); RED CELL DISTRIBUTION WIDTH 18.2 % (10.0-14.5); WHITE BLOOD COUNT 15.5 10^3/uL (4.3-11.0)
[2019-08-01 02:25] LABS: ABG BASE EXCESS 1.5 MMOL/L (-2.5-2.5); ABG OXYGEN SATURATION 98 % (94-100); ABG PCO2 70 MMHG (35-45); ABG PO2 129 MMHG (79-93); ABG TCO2 30.6 MMOL/L (21.0-31.0)
[2019-08-01 02:27] LABS: ABG PH 7.23 (7.37-7.43); ALLENS TEST YES-POS; INSPIRED O2 60%; PATIENT TEMP 36.7; VENTILATOR NO
[2019-08-01 02:32] LABS: PROTHROMBIN TIME PATIENT 13.1 SEC (12.2-14.7)
[2019-08-01 02:38] LABS: BAND NEUTROPHILS 5 %; EOSINOPHILS % (MANUAL) 2 %; LYMPHOCYTES % (MANUAL) 26 %; MONOCYTES % (MANUAL) 5 %; NEUTROPHILS % (MANUAL) 62 %; RBC MORPH NORMAL
[2019-08-01 02:39] LABS: ALANINE AMINOTRANSFERASE 36 U/L (0-55); ALBUMIN 4.5 GM/DL (3.2-4.5); ALKALINE PHOSPHATASE 94 U/L (40-136); BILIRUBIN,TOTAL 0.5 MG/DL (0.1-1.0); BUN/CREATININE RATIO 16; CALCIUM 8.9 MG/DL (8.5-10.1); CARBON DIOXIDE 23 MMOL/L (21-32); CHLORIDE 98 MMOL/L (98-107); CREATINE KINASE 28 U/L (29-168); CREATININE SERUM 1.11 MG/DL (0.60-1.30); GFR ESTIMATED 49; GLUCOSE 311 MG/DL (70-105); LIPASE 69 U/L (8-78); MAGNESIUM 2.1 MG/DL (1.6-2.4); POTASSIUM 4.8 MMOL/L (3.6-5.0); SODIUM 138 MMOL/L (135-145); TOTAL PROTEIN 7.1 GM/DL (6.4-8.2)
[2019-08-01 02:43] LABS: BILIRUBIN,URINE NEGATIVE (NEGATIVE); CLARITY,URINE CLEAR; COLOR,URINE YELLOW; GLUCOSE, URINE (UA) 4+ (NEGATIVE); KETONES,URINE NEGATIVE (NEGATIVE); LEUKOCYTE ESTERASE ,URINE NEGATIVE (NEGATIVE); NITRITE,URINE NEGATIVE (NEGATIVE); PH,URINE 6.5 (5-9); PROTEIN,URINE 3+ (NEGATIVE)
[2019-08-01 02:49] LABS: BACTERIA,URINE TRACE /HPF
[2019-08-01 02:59] LABS: CREATINE KINASE MB 1.6 NG/ML (<6.6); TSH (THYROID ANALYZER) 3.01 UIU/ML (0.35-4.94)
[2019-08-01] MEDS ORDERED: LORazepam INJ 2 MG/ML (ATIVAN) VIAL IVP ONE (03:00)
[2019-08-01] MEDS ORDERED: hydrALAZINE (APESOLINE) 20 MG/ML VIAL IV ONE (03:00)
[2019-08-01] MEDS ORDERED: NITROGLYCERIN 2% OINT 1 GM UNIT DOSE PACKET TOP ONE (03:00)
[2019-08-01] MEDS ORDERED: FUROSEMIDE 40 MG/4 ML INJ (LASIX) IVP ONE (03:00)
[2019-08-01 03:51] LABS: ABG BASE EXCESS 6.5 MMOL/L (-2.5-2.5); ABG OXYGEN SATURATION 97 % (94-100); ABG PCO2 63 MMHG (35-45); ABG PO2 105 MMHG (79-93); ABG TCO2 33.6 MMOL/L (21.0-31.0)
[2019-08-01 03:52] LABS: ABG PH 7.35 (7.37-7.43); ALLENS TEST YES-POS; INSPIRED O2 50%; PATIENT TEMP 38.5; VENTILATOR NO
[2019-08-01] MEDS ORDERED: AZITHROMYCIN INJECTION 500 MG in NS (IVPB) 250 ML IV ONE (04:15)
[2019-08-01] MEDS ORDERED: ASPIRIN 81 MG CHEW (CHILDREN'S ASA) PO ONE (04:15)
[2019-08-01] MEDS ORDERED: inSUlin (REGULAR) HUMAN 1 UNIT/0.01 ML (CHARGE PER UNIT) IV ONE (04:15)
[2019-08-01] MEDS ORDERED: cefTRIAXone FOR IV USE 1,000 MG in WATER (STERILE) FOR INJECTION 10 ML IV ONE ×2 (04:15→08:15)
[2019-08-01] MEDS ORDERED: NS (IVPB) 100 ML ONE (04:32)
--- NOTE | 2019-08-01 04:42 | ED Dyspnea ---
General Stated Complaint: CHEST PAIN/SOA Source of Information: Patient (PT IS VERY LIMITED HISTORIAN--IS IN RESPIRATORY DISTRESS AND IS UNABLE TO TALK ON ARRIVAL), EMS, Old Records History of Present Illness Date Seen by Provider: Aug 01, 2019 Time Seen by Provider: 01:53 Initial Comments PT ARRIVES VIA EMS FROM HOME C/O SHORTNESS OF BREATH EMS REPORT THAT PT HAD CALLED 911 EARLIER THIS EVENING FOR SHORTNESS OF BREATH WELL, THEN REFUSED TRANSPORT AT THAT TIME, THEN CALLED BACK A SHORT TIME PRIOR TO ARRIVAL EMS STARTED A DUONEB TREATMENT, BUT OTHERWISE NO TREATMENT OF ANY KIND WAS DONE AND NO IV ACCESS BY EMS PT IS ABLE TO NOD HEAD YES/NO ON ARRIVAL BUT IS NOT ABLE TO TALK DUE TO DYSPNEA PT ADAMANTLY DENIES CHEST PAIN NOW OR AT ANY TIME TODAY PT STATES SHE DID USE HER HOME NEBULIZER TODAY Allergies and Home Medications Allergies Coded Allergies: No Known Drug Allergies (Verified , 05/08/09) Home Medications Aclidinium [place] 400 Mcg Aer.pow.ba, 1 PUFF INH BID, (Reported) Albuterol Sulfate 1 Puff Puff, 2 PUFF IH Q4H PRN for SHORTNESS OF BREATH, (Reported) 1 PUFF = 90 MCG Albuterol Sulfate 2.5 Mg/3 Ml Vial.neb, 2.5 MG NEB Q4H PRN for SHORTNESS OF BREATH, (Reported) Alprazolam 0.5 Mg Tablet, 0.5 MG PO TID, (Reported) Aripiprazole 10 Mg Tablet, 10 MG PO BID, (Reported) Aspirin 81 Mg Tablet.dr, 81 MG PO DAILY, (Reported) Atorvastatin Calcium 20 Mg Tablet, 20 MG PO HS, (Reported) Carvedilol 12.5 Mg Tablet, 12.5 MG PO BID, (Reported) Doxycycline Hyclate 100 Mg Tablet, 100 MG PO BID@ Prescribed by: CASTILLO BARTON on 12/23/171813 Duloxetine HCl 60 Mg Capsule.dr, 60 MG PO BID, (Reported) Empagliflozin 25 Mg Tablet, 25 MG PO DAILY, (Reported) Fluticasone/Salmeterol 1 Each Blst.w.dev, 1 PUFF IH BID, (Reported) LAST FILLED 08/18/18 #3 INHALERS Furosemide 40 Mg Tablet, 60 MG PO DAILY, (Reported) TAKES 1 & 1/2 OF A (40 MG) TABLET Gabapentin 400 Mg Capsule, 400 MG PO DAILY, (Reported) Gabapentin 400 Mg Capsule, 800 MG PO HS, (Reported) TAKES 2 (400 MG) TABLETS Levothyroxine Sodium 150 Mcg Tablet, 150 MCG PO DAILY, (Reported) Liraglutide 0.6 Mg/0.1 Ml Pen.injctr, 1.8 MG SQ DAILY, (Reported) LAST FILLED 08/18/18 #27 ML Magnesium Oxide 400 Mg Tablet, 400 MG PO DAILY, (Reported) Multivitamin with Minerals 1 Each Tablet, 1 TAB PO DAILY, (Reported) Nystatin 60 Gm Powder, TP TID PRN for RASH, (Reported) [place] 3 Polyunsat Fatty Acids 1,000 Mg Cap, 1,000 MG PO DAILY, (Reported) Pantoprazole Sodium 40 Mg Tablet.dr, 40 MG PO BID, (Reported) Potassium Chloride 20 Meq Tab.er.prt, 60 MEQ PO DAILY PRN for CRAMPS, (Reported) TAKES 1-3 OF A (20 MEQ) TABLET Sitagliptin Phos/Metformin HCl 1 Each Tbmp.24hr, 1 TAB PO HS, (Reported) Spironolactone 25 Mg Tablet, 25 MG PO DAILY, (Reported) Past Qlnjrep-Kexdvf-Hrdkgp Hx Patient Social History Type Used: Cigarettes Recent Hopitalizations: Yes (JUNE 2017) Immunizations Up To Date PED Vaccines UTD: No Date of Pneumonia Vaccine: Jul 22, 2016 Date of Influenza Vaccine: Jul 22, 2017 Seasonal Allergies Seasonal Allergies: Yes Past Medical History Surgeries: Yes 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, Tonsillectomy, Tubal Ligation Respiratory: Yes (O2 AT 3L/NC CONTINUOUSLY) Pneumonia, Sleep Apnea, COPD Currently Using CPAP: Yes Currently Using BIPAP: No Cardiac: Yes Chronic Edema/Swelling, High Cholesterol, Hypertension Neurological: Yes (?NEUROPATHY?) Female 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 History: 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, Tubal Ligation, Menopausal Sexually Transmitted Disease: No HIV/AIDS: No Genitourinary: Yes Kidney Infection Gastrointestinal: Yes Gastroesophageal Reflux, Hiatal Hernia Musculoskeletal: Yes Degenerate Disk Disease, Arthritis, Fibromyalgia, Chronic Back Pain Endocrine: Yes (OBESITY) Hypothyroidsim, Diabetes, Non-Insulin dep HEENT: No Loss of Vision: Denies Hearing Impairment: Denies Cancer: No Psychosocial: Yes Anxiety, Depression Integumentary: Yes (CELLULITIS, YEAST INFECTIONS) Blood Disorders: No Adverse Reaction/Blood Tranf: No Family Medical History Diabetes mellitus 19 MOTHER FH: COPD (chronic obstructive pulmonary disease) 19 FATHER FH: heart attack 19 FATHER FH: melanoma 19 FATHER FH: stomach cancer 19 MOTHER No Pertinent Family Hx, Heart Disease, Hypertension Physical Exam Vital Signs Vital Signs - First Documented 08/01/19 08/01/19 02:22 02:30 Pulse 135 Resp 24 Pulse Ox 100 O2 Delivery NIV Bilevel O2 Flow Rate 60.00 Capillary Refill : Height, Weight, BMI Height: 4'0.00" Weight: 258lbs. 0.0oz. 117.053921nf; 78.7 BMI Method:Stated Progress/Results/Core Measures Results/Orders Lab Results Laboratory Tests Test 08/01/19 01:58 08/01/19 02:05 08/01/19 02:11 08/01/19 02:30 Range/Units Glucometer 250 H 70-110 MG/DL White Blood Count 15.5 H 4.3-11.0 10^3/uL Red Blood Count 5.27 4.35-5.85 10^6/uL Hemoglobin 13.7 11.5-16.0 G/DL Hematocrit 45 35-52 % Mean Corpuscular Volume 85 80-99 FL Mean Corpuscular Hemoglobin 26 25-34 PG Mean Corpuscular Hemoglobin Concent 30 L 32-36 G/DL Red Cell Distribution Width 18.2 H 10.0-14.5 % Platelet Count 267 130-400 10^3/uL Mean Platelet Volume 10.0 7.4-10.4 FL Neutrophils (%) (Auto) 66 42-75 % Lymphocytes (%) (Auto) 22 12-44 % Monocytes (%) (Auto) 10 0-12 % Eosinophils (%) (Auto) 2 0-10 % Basophils (%) (Auto) 1 0-10 % Neutrophils # (Auto) 10.2 H 1.8-7.8 X 10^3 Lymphocytes # (Auto) 3.5 1.0-4.0 X 10^3 Monocytes # (Auto) 1.5 H 0.0-1.0 X 10^3 Eosinophils # (Auto) 0.3 0.0-0.3 10^3/uL Basophils # (Auto) 0.1 0.0-0.1 10^3/uL Neutrophils % (Manual) 62 % Lymphocytes % (Manual) 26 % Monocytes % (Manual) 5 % Eosinophils % (Manual) 2 % Band Neutrophils 5 % Blood Morphology Comment NORMAL Prothrombin Time 13.1 12.2-14.7 SEC INR Comment 1.0 0.8-1.4 Activated Partial Thromboplast Time 27 24-35 SEC Sodium Level 138 135-145 MMOL/L Potassium Level 4.8 3.6-5.0 MMOL/L Chloride Level 98 98-107 MMOL/L Carbon Dioxide Level 23 21-32 MMOL/L Anion Gap 17 H 5-14 MMOL/L Blood Urea Nitrogen 18 7-18 MG/DL Creatinine 1.11 0.60-1.30 MG/DL Estimat Glomerular Filtration Rate 49 BUN/Creatinine Ratio 16 Glucose Level 311 H 70-105 MG/DL Calcium Level 8.9 8.5-10.1 MG/DL Corrected Calcium 8.5 8.5-10.1 MG/DL Magnesium Level 2.1 1.6-2.4 MG/DL Total Bilirubin 0.5 0.1-1.0 MG/DL Aspartate Amino Transf (AST/SGOT) 53 H 5-34 U/L Alanine Aminotransferase (ALT/SGPT) 36 0-55 U/L Alkaline Phosphatase 94 40-136 U/L Total Creatine Kinase 28 L 29-168 U/L Creatine Kinase MB 1.6 <6.6 NG/ML Troponin I < 0.028 <0.028 NG/ML B-Type Natriuretic Peptide 91.2 <100.0 PG/ML Total Protein 7.1 6.4-8.2 GM/DL Albumin 4.5 3.2-4.5 GM/DL Lipase 69 8-78 U/L TSH [place] Testing 3.01 0.35-4.94 UIU/ML Blood Gas Puncture Site RIGHT RADIAL Blood Gas Patient Temperature 36.7 Arterial Blood pH 7.23 *L 7.37-7.43 Arterial Blood Partial Pressure CO2 70 H 35-45 MMHG Arterial Blood Partial Pressure O2 129 H 79-93 MMHG Arterial Blood HCO3 28 H 23-27 MMOL/L Arterial Blood Total CO2 30.6 21.0-31.0 MMOL/L Arterial Blood Oxygen Saturation 98 94-100 % Arterial Blood Base Excess 1.5 -2.5-2.5 MMOL/L Jovanny Test YES-POS Blood Gas Ventilator Setting NO Blood Gas Inspired Oxygen 60% Urine Color YELLOW Urine Clarity CLEAR Urine pH 6.5 5-9 Urine Specific [place] 1.015 L 1.016-1.022 Urine Protein 3+ H NEGATIVE Urine Glucose (UA) 4+ H NEGATIVE Urine Ketones NEGATIVE NEGATIVE Urine Nitrite NEGATIVE NEGATIVE Urine Bilirubin NEGATIVE NEGATIVE Urine Urobilinogen NORMAL NORMAL MG/DL Urine Leukocyte Esterase NEGATIVE NEGATIVE Urine RBC (Auto) 1+ H NEGATIVE Urine RBC 2-5 H /HPF Urine WBC NONE /HPF Urine Squamous Epithelial Cells 5-10 /HPF Urine Crystals NONE /LPF Urine Bacteria TRACE /HPF Urine Casts PRESENT /LPF Urine Hyaline Casts 5-10 H /LPF Urine Mucus MODERATE H /LPF Urine Culture Indicated NO Test 08/01/19 03:45 Range/Units Blood Gas Puncture Site LEFT RADIAL Blood Gas Patient Temperature 38.5 Arterial Blood pH 7.35 L 7.37-7.43 Arterial Blood Partial Pressure CO2 63 H 35-45 MMHG Arterial Blood Partial Pressure O2 105 H 79-93 MMHG Arterial Blood HCO3 32 H 23-27 MMOL/L Arterial Blood Total CO2 33.6 H 21.0-31.0 MMOL/L Arterial Blood Oxygen Saturation 97 94-100 % Arterial Blood Base Excess 6.5 H -2.5-2.5 MMOL/L Jovanny Test YES-POS Blood Gas Ventilator Setting NO Blood Gas Inspired Oxygen 50% My Orders Orders - TONY RAGLAND DO Ns Iv 1000 Ml (Sodium Chloride 0.9%) (08/01/19 01:59) Accucheck Stat ONCE (08/01/19 02:06) Ed Iv/Invasive Line Start (08/01/19 02:06) Ekg Tracing (08/01/19 02:06) Catheter(Urinary) Insert & Ass 03,15 (08/01/19 02:06) O2 (08/01/19 02:06) Monitor-Rhythm Ecg Trace Only (08/01/19 02:06) Chest 1 View, Ap/Pa Only (08/01/19 02:06) Arterial Blood Gas (08/01/19 02:06) BNP (08/01/19 02:06) Cbc With Automated Diff (08/01/19 02:06) Comprehensive Metabolic Panel (08/01/19 02:06) Creatine Kinase (08/01/19 02:06) Creatine Kinase Mb (08/01/19 02:06) Lipase (08/01/19 02:06) Magnesium (08/01/19 02:06) Protime With Inr (08/01/19 02:06) Partial Thromboplastin Time (08/01/19 02:06) Thyroid Analyzer (08/01/19 02:06) Ua Culture If Indicated (08/01/19 02:06) Blood Culture (08/01/19 02:06) Influenza A And B Antigens (08/01/19 02:06) Troponin I (08/01/19 02:06) Methylprednisolone Sod Succ (Solu-Medrol (08/01/19 02:06) Albuterol Pre-Mix Nebs (Rt) (Proventil (08/01/19 02:06) Albuterol/Ipra Inhalation Soln (Duoneb I (08/01/19 02:15) Dexamethasone Injection (Decadron Inject (08/01/19 02:15) Rt Request For Service (08/01/19 02:06) Svn Small Volume Nebulizer (08/01/19 02:06) Svn Small Volume Nebulizer (08/01/19 02:06) Manual Differential (08/01/19 02:05) Lorazepam Injection (Ativan Injection) (08/01/19 03:00) Arterial Blood Gas (08/01/19 02:50) Hydralazine Injection (Apresoline Inject (08/01/19 03:00) Furosemide Injection (Lasix Injection) (08/01/19 03:00) Nitroglycerin Ointment (Nitrobid Ointme (08/01/19 03:00) Medications Given in ED Current Medications Medications Dose Ordered Sig/Cameron Route Start Time Stop Time Status Last Admin Dose Admin Albuterol/ Ipratropium 3 ml ONCE ONCE INH 08/01/19 02:15 08/01/19 02:16 DC 08/01/19 02:21 3 ML Dexamethasone Sodium Phosphate 30 mg ONCE ONCE IH 08/01/19 02:15 08/01/19 02:16 DC 08/01/19 02:22 30 MG Furosemide 80 mg ONCE ONCE IVP 08/01/19 03:00 08/01/19 03:01 DC 08/01/19 03:08 80 MG Hydralazine HCl 10 mg ONCE ONCE IV 08/01/19 03:00 08/01/19 03:01 DC 08/01/19 03:08 10 MG Lorazepam 1 mg ONCE ONCE IVP 08/01/19 03:00 08/01/19 03:01 DC 08/01/19 03:07 1 MG Nitroglycerin 1 inch ONCE ONCE TOP 08/01/19 03:00 08/01/19 03:01 DC 08/01/19 03:08 1 INCH Vital Signs/I&O 08/01/19 08/01/19 02:22 02:30 Pulse 135 Resp 24 Pulse Ox 100 O2 Delivery NIV Bilevel O2 Flow Rate 60.00 Progress Progress Note : Progress Note ON ARRIVAL, PT QUESTIONED IF SHE WANTED CPR AND INTUBATION IF HER SYMPTOMS WORSENED, AND SHE SAID YES/ NODDED HER HEAD YES. PT IMMEDIATELY PLACED ON BIPAP, WITH IMPROVEMENT IN DYSPNEA AND INCREASED AERATION. PT WITH INCREASED MENTATION, IMPROVED COLOR, PT ABLE TO TALK IN SHORT SENTENCES. PT CONTINUED TO BE DIAPHORETIC DURING MOST OF ER STAY O2 SATS UP TO 100% ON BIPAP PT GIVEN ATIVAN FOR ASSOCIATED ANXIETY. AND PT IS MUCH CALMER BP DOWN WITH MEDICATIONS TEMP NOTED TO BE ELEVATED PRIOR TO ADMIT--38 + DEGREES C--GIVEN TYLENOL Departure Communication (Admissions) 0400--SPOKE WITH DR. ABEL, ACCEPTS PT FOR ADMIT. WILL CONSULT DR. 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 Referrals: JUDITH KAUFMAN DO (PCP/Family) Primary Care Physician TONY RAGLAND DO Aug 01, 2019 04:42 POS
[2019-08-01] MEDS ORDERED: ACETAMINOPHEN 500 MG TAB (TYLENOL) PO ONE (05:15)
--- NOTE | 2019-08-01 06:34 | Pulmonary Consultation ---
History of Present Illness History of Present Illness Date of Consultation 08/01/19 06:29 Time Seen by Provider: 06:29 Date of Admission History of Present Illness 68yo presented toe ED via EMS secondary to worsening SOB. Pt initially refused transport to ED however then call EMS back secondary to worsening and persistent symptoms. Upon ED arrival pt was in severe respiratory distress with conversational dyspnea. Denies CP. Allergies and Home Medications Allergies Coded Allergies: No Known Drug Allergies (Verified , 05/08/09) Home Medications Aclidinium [place] 400 Mcg Aer.pow.ba, 1 PUFF INH BID, (Reported) Albuterol Sulfate 1 Puff Puff, 2 PUFF IH Q4H PRN for SHORTNESS OF BREATH, (Reported) 1 PUFF = 90 MCG Albuterol Sulfate 2.5 Mg/3 Ml Vial.neb, 2.5 MG NEB Q4H PRN for SHORTNESS OF BREATH, (Reported) Alprazolam 0.5 Mg Tablet, 0.5 MG PO TID, (Reported) Aripiprazole 10 Mg Tablet, 10 MG PO BID, (Reported) Aspirin 81 Mg Tablet.dr, 81 MG PO DAILY, (Reported) Atorvastatin Calcium 20 Mg Tablet, 20 MG PO HS, (Reported) Carvedilol 12.5 Mg Tablet, 12.5 MG PO BID, (Reported) Doxycycline Hyclate 100 Mg Tablet, 100 MG PO BID@17 Prescribed by: CASTILLO BARTON on 12/23/171813 Duloxetine HCl 60 Mg Capsule.dr, 60 MG PO BID, (Reported) Empagliflozin 25 Mg Tablet, 25 MG PO DAILY, (Reported) Fluticasone/Salmeterol 1 Each Blst.w.dev, 1 PUFF IH BID, (Reported) LAST FILLED 08/18/18 #3 INHALERS Furosemide 40 Mg Tablet, 60 MG PO DAILY, (Reported) TAKES 1 & 1/2 OF A (40 MG) TABLET Gabapentin 400 Mg Capsule, 400 MG PO DAILY, (Reported) Gabapentin 400 Mg Capsule, 800 MG PO HS, (Reported) TAKES 2 (400 MG) TABLETS Levothyroxine Sodium 150 Mcg Tablet, 150 MCG PO DAILY, (Reported) Liraglutide 0.6 Mg/0.1 Ml Pen.injctr, 1.8 MG SQ DAILY, (Reported) LAST FILLED 08/18/18 #27 ML Magnesium Oxide 400 Mg Tablet, 400 MG PO DAILY, (Reported) Multivitamin with Minerals 1 Each Tablet, 1 TAB PO DAILY, (Reported) Nystatin 60 Gm Powder, TP TID PRN for RASH, (Reported) [place] 3 Polyunsat Fatty Acids 1,000 Mg Cap, 1,000 MG PO DAILY, (Reported) Pantoprazole Sodium 40 Mg Tablet.dr, 40 MG PO BID, (Reported) Potassium Chloride 20 Meq Tab.er.prt, 60 MEQ PO DAILY PRN for CRAMPS, (Reported) TAKES 1-3 OF A (20 MEQ) TABLET Sitagliptin Phos/Metformin HCl 1 Each Tbmp.24hr, 1 TAB PO HS, (Reported) Spironolactone 25 Mg Tablet, 25 MG PO DAILY, (Reported) Past Pjvjmtr-Sbhrsp-Ckcbww Hx Patient Social History Type Used: Cigarettes Recent Hopitalizations: Yes (JUNE 2017) Immunizations Up To Date PED Vaccines UTD: No Date of Pneumonia Vaccine: Jul 22, 2016 Date of Influenza Vaccine: Jul 22, 2017 Seasonal Allergies Seasonal Allergies: Yes Past Medical History Surgeries: Yes 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, Tonsillectomy, Tubal Ligation Respiratory: Yes (O2 AT 3L/NC CONTINUOUSLY) Pneumonia, Sleep Apnea, COPD Currently Using CPAP: Yes Currently Using BIPAP: No Cardiac: Yes Chronic Edema/Swelling, High Cholesterol, Hypertension Neurological: Yes (?NEUROPATHY?) Female Reproductive Disorders: 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: 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, Tubal Ligation, Menopausal Sexually Transmitted Disease: No HIV/AIDS: No Genitourinary: Yes Kidney Infection Gastrointestinal: Yes Gastroesophageal Reflux, Hiatal Hernia Musculoskeletal: Yes Degenerate Disk Disease, Arthritis, Fibromyalgia, Chronic Back Pain Endocrine: Yes (OBESITY) Hypothyroidsim, Diabetes, Non-Insulin dep HEENT: No Loss of Vision: Denies Hearing Impairment: Denies Cancer: No Psychosocial: Yes Anxiety, Depression Integumentary: Yes (CELLULITIS, YEAST INFECTIONS) Blood Disorders: No Adverse Reaction/Blood Tranf: No Family Medical History Diabetes mellitus 19 MOTHER FH: COPD (chronic obstructive pulmonary disease) 19 FATHER FH: heart attack 19 FATHER FH: melanoma 19 FATHER FH: stomach cancer 19 MOTHER No Pertinent Family Hx, Heart Disease, Hypertension Sepsis Event Evaluation Height, Weight, BMI Height: 4'0.00" Weight: 258lbs. 0.0oz. 117.466578tt; 78.7 BMI Method:Stated Exam Exam Vital Signs Date Time Temp Pulse Resp B/P (MAP) Pulse Ox O2 Delivery O2 Flow Rate FiO2 08/01/19 06:22 38.2 08/01/19 02:30 135 24 100 60.00 08/01/19 02:22 NIV Bilevel Height & Weight Height: 4'0.00" Weight: 258lbs. 0.0oz. 117.706041tc; 78.7 BMI Method:Stated Results Lab Laboratory Tests 08/01/19 02:05 Assessment/Plan Assessment/Plan Acute respiratory distress -Currenty requiring BiPAP -Influenza pending Pneumonia with sepsis -LA is pending -IVF Rocephin and azithromycin -Avitia culture COPDAE -SVNs -Solumedrol Morbid Obesity ALICIA MCKEON DO Aug 01, 2019 06:34 POS
[2019-08-01] MEDS ORDERED: ACETAMINOPHEN 500 MG TAB (TYLENOL) PO PRN (06:45)
[2019-08-01] MEDS ORDERED: LORazepam INJ 2 MG/ML (ATIVAN) VIAL IV PRN (06:45)
[2019-08-01] MEDS ORDERED: LACTATED RINGERS 1,000 ML IV SCH (06:45)
--- NOTE | 2019-08-01 07:02 | Diagnostic Imaging Report ---
INDICATION: Shortness of breath, chest pain. TECHNIQUE: Single view chest 2:56 AM. CORRELATION STUDY: 12/20/2017 FINDINGS: Heart size enlarged. There is presence of pulmonary vascular congestion and perihilar edema, adversely changed from prior study. Elevated right diaphragm. Likely central edema accounting for wispy-like densities. No focal consolidating infiltrate. IMPRESSION: 1. Findings of congestive heart failure. Dictated by: Dictated on workstation # [id number]
[2019-08-01] MEDS: RT-ALBUTEROL/IPRATROPIUM 3 ML (DUONEB) VIAL INH SCH ×7 (07:31→22:16)
[2019-08-01] MEDS ORDERED: methylPREDNISolone 125 MG (Solu-MEDROL) VIAL IV SCH (08:00)
--- NOTE | 2019-08-01 08:25 | Diagnostic Imaging Report ---
INDICATION: Pneumonia, respiratory failure, follow-up. EXAMINATION: Chest from 08/01/2019 at 8:07 a.m. COMPARISON: 08/01/2019 at 2:56 a.m. FINDINGS: Heart is stable. Pulmonary vasculature less congested. Increased markings throughout both lungs have improved. No new consolidations or effusions. No pneumothorax. IMPRESSION: 1. Improving pulmonary edema. Dictated by: Dictated on workstation # [id number]
[2019-08-01] MEDS ORDERED: NITROGLYCERIN 2% OINT 1 GM UNIT DOSE PACKET TOP SCH (09:00)
--- NOTE | 2019-08-01 09:25 | NUR ---
0915 DR ABEL ON FLOOR VERBAL ORDERS RECEIVED TO D/C IVF AND OBTAIN EKG.
[2019-08-01] MEDS: inSUlin ASPART (NovoLOG) 1 UNIT/0.01 ML (CHARGE PER UNIT) SC SCH ×5 (11:37→21:07)
[2019-08-01] MEDS: ENOXAPARIN 40 MG/0.4 ML (LOVENOX) SYR SC SCH (11:41)
[2019-08-01] MEDS ORDERED: methylPREDNISolone 40 MG/ML (Solu-MEDROL) VIAL IV SCH (12:00)
[2019-08-01] MEDS ORDERED: ONDANSETRON 4 MG (ZOFRAN) ORAL DISSOLVE TAB PO PRN (12:30)
[2019-08-01] MEDS ORDERED: ACETAMINOPHEN 325 MG TABLET PO PRN (12:30)
[2019-08-01] MEDS ORDERED: MELATONIN 3 MG TABLET PO PRN (12:30)
[2019-08-01] MEDS ORDERED: ANTACID SUSP 30 ML UDC (MYLANTA) PO PRN (12:30)
[2019-08-01] MEDS ORDERED: ALPRAZolam 0.25 MG (XANAX) TAB PO PRN (12:30)
[2019-08-01] MEDS ORDERED: POLYETHYLENE GLYCOL 17 GM (MIRALAX) PACK PO PRN (12:30)
[2019-08-01] MEDS ORDERED: BISACODYL 10 MG SUPP (DULCOLAX) PR PRN (12:30)
[2019-08-01] MEDS ORDERED: ALPRAZolam 0.5 MG (XANAX) TAB PO SCH (13:00)
--- NOTE | 2019-08-01 13:23 | History & Physical-Hospitalist ---
History of Present Illness HPI/Chief Complaint Tara Guerra is a 68-year-old female with past medical history of hypertension, diabetes, morbid obesity, who presented with shortness of breath. She is currently wearing BiPAP. She reports improvement in her shortness of breath. She denies any chest pain. She denies fever and chills. She denies cough and sputum production. She denies abdominal pain, nausea, vomiting, and diarrhea. Source: patient Exam Limitations: clinical condition Date Seen 08/01/19 Time Seen by a Provider: 09:20 Attending Physician Hilda Coleman DO PCP Hilda Coleman DO Referring Physician Date of Admission Aug 01, 2019 at 04:00 Home Medications & Allergies Home Medications Reviewed patient Home Medication Reconciliation performed by pharmacy medication reconciliations printing technician and/or nursing. Patients Allergies have been reviewed. Allergies Allergies Coded Allergies No Known Drug Allergies (Verified05/08/09) Past Caejwep-Wibxqy-Juwxaf Hx Past Med/Social Hx: Reviewed Nursing Past Med/Soc Hx Patient Social History Type Used: Cigarettes Recent Hopitalizations: Yes (JUNE 2017) Immunizations Up To Date Pediatric: No Date of Pneumonia Vaccine: Jul 22, 2016 Date of Influenza Vaccine: Jul 09, 2019 Seasonal Allergies Seasonal Allergies: Yes Past Medical History Surgeries: 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, Tonsillectomy, Tubal Ligation Respiratory: COPD, Pneumonia, Sleep Apnea Currently Using CPAP: Yes Currently Using BIPAP: No Cardiac: Chronic Edema/Swelling, High Cholesterol, Hypertension Sexually Transmitted Disease: No HIV/AIDS: No Female Reproductive Disorders: Denies 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, Tubal Ligation, Menopausal Genitourinary: Kidney Infection Gastrointestinal: Gastroesophageal Reflux, Hiatal Hernia Musculoskeletal: Degenerate Disk Disease, Arthritis, Fibromyalgia, Chronic Back Pain Endocrine: Hypothyroidsim, Diabetes, Non-Insulin dep Loss of Vision: Denies Hearing Impairment: Denies Psychosocial: Anxiety, Depression History of Blood Disorders: No Adverse Reaction to Blood [place]: No Family History Diabetes mellitus 19 MOTHER FH: COPD (chronic obstructive pulmonary disease) 19 FATHER FH: heart attack 19 FATHER FH: melanoma 19 FATHER FH: stomach cancer 19 MOTHER No Pertinent Family Hx, Heart Disease, Hypertension Review of Systems Constitutional: see HPI EENTM: no symptoms reported Respiratory: short of breath Cardiovascular: no symptoms reported Gastrointestinal: no symptoms reported Genitourinary: no symptoms reported Musculoskeletal: no symptoms reported Skin: no symptoms reported Psychiatric/Neurological: No Symptoms Reported Physical Exam Physical Exam Vital Signs Vital Signs - First Documented 08/01/19 08/01/19 08/01/19 08/01/19 02:22 02:30 06:22 06:35 Temp 38.2 Pulse 135 Resp 24 B/P (MAP) 112/70 (84) Pulse Ox 100 O2 Delivery NIV Bilevel O2 Flow Rate 60.00 Capillary Refill : Height, Weight, BMI Height: 4'0.00" Weight: 258lbs. 0.0oz. 117.516364vz; 78.7 BMI Method:Stated General Appearance: No Apparent Distress, Anxious, Other (wearing BiPAP) Neck: Normal Inspection, Supple Respiratory: Rhonci, Wheezing, Other (wearing BiPAP) Cardiovascular: Regular Rate, Rhythm, No Murmur Gastrointestinal: Normal Bowel Sounds, Non Tender, Soft Extremity: Normal Inspection, Non Tender, Pedal Edema Neurologic/Psychiatric: Alert, Oriented x3, No Motor/Sensory Deficits, Normal Mood/Affect Skin: Normal Color, Warm/Dry Results Results/Procedures Labs Laboratory Tests 08/01/19 02:05 Patient resulted labs reviewed. Imaging: Reviewed Imaging Report Assessment/Plan Admission Diagnosis Acute respiratory failure with hypoxia and hypercapnia Admission Status: Inpatient Order (span 2 midnights) Reason for Inpatient Admission: Respiratory failure requiring BiPAP Assessment and Plan Acute respiratory failure with hypoxemia and hypercapnia Possible pneumonia Sepsis Pulmonary edema NSTEMI -Fever and tachycardia on admission -No clear infectious source at this point -Procalcitonin normal, repeat tomorrow -UA negative -Blood cultures drawn -Chest xray without clear pneumonia, showed pulmonary edema -Given Lasix -Monitor intake and output -Initial troponin normal, repeat elevated -Consult Cardiology -Given ASA in ER -Continue BiPAP for acute hypercapnia -Pulmonology following HTN -Hold antihypertensives, blood pressures low this morning T2DM -Sliding scale insulin Morbid obesity -Clinically significant, no acute management needs DVT Prophylaxis: Lovenox Diagnosis/Problems Diagnosis/Problems (1) Sepsis Status: Acute (2) Acute respiratory failure with hypoxia and hypercapnia Status: Acute (3) NSTEMI (non-ST elevation myocardial infarction) Status: Acute (4) HTN (hypertension) Status: Chronic Qualifiers: Hypertension type: essential hypertension Qualified Codes: I10 - Essential (primary) hypertension (5) T2DM (type 2 diabetes mellitus) Status: Chronic (6) Morbid obesity Status: Chronic (7) COPD exacerbation Status: Acute Clinical Quality Measures DVT/VTE Risk/Contraindication: Risk Factor Score Per Nursin RFS Level Per Nursing on Admit: 4+=Very High MALLORIE ABEL MD Aug 01, 2019 13:23 POS
[2019-08-01] MEDS ORDERED: LIDOCAINE 1% INJ 20 ML 20 ML VIAL ONE (13:39)
[2019-08-01] MEDS ORDERED: HEParin (CATH LAB) 2,000 ML IV ONE (13:40)
[2019-08-01] MEDS ORDERED: NS IV 1000 ML 1,000 ML ONE (13:40)
[2019-08-01] MEDS ORDERED: MIDAZOLAM 5 MG/5 ML (VERSED) VIAL ONE (13:48)
[2019-08-01] MEDS ORDERED: fentaNYL INJECTION 100 MCG/2 ML AMP ONE (13:48)
--- NOTE | 2019-08-01 13:56 | Consultation-Cardiology ---
HPI-Cardiology Cardiology Consultation: Date of Consultation 08/01/19 Time Seen by a Provider: 13:30 Date of Admission Attending Physician Hilda Coleman DO Admitting Physician Hilda Coleman DO Consulting Physician JU LOBATO MD, MA, FACP, FACC, FSCAI, CCDS HPI: Chief Complaint: CC: Chest pain HPI 68 yo woman admitted through ER to Dr Garcia in the early hours of 08/01/19 after she presented with chest pain: midsternal and L parasternal, radiating to L shoulder, lasting approx 30 min, associated with diaphoresis, occurring at rest, consisting of a feeling of pressure, mod in intensity, not experienced before, w/o any aggravating or relieving factors. She has chronic exertional shortness of breath. She has chronic, intermittent leg swelling. She denies palp or syncope Review of Systems-Cardiology Review of Systems Constitutional: malaise, tiredness; No weight loss, No weight gain Eyes: No vision change Ears/Nose/Throat: No ear discharge, No nasal drainage, No recent hearing loss Respiratory: As described under HPI Cardiovascular: As described under HPI Gastrointestinal: No diarrhea, No nausea, No vomiting Genitourinary: No dysuria, No hematuria, No urine frequency changes Musculoskeletal: back pain (chronic) Skin: No rash, No ulcerations Psychiatric/Neurological: No seizure, No focal weakness, No syncope Hematologic: No bleeding abnormalities [id number] Hx Patient Social History Type Used: Cigarettes Immunizations Up To Date Date of Pneumonia Vaccine: Jul 22, 2016 Date of Influenza Vaccine: Jul 09, 2019 Past Medical History PMH As described under Assessment. Family Medical History Family History: Diabetes mellitus 19 MOTHER FH: COPD (chronic obstructive pulmonary disease) 19 FATHER FH: heart attack 19 FATHER FH: melanoma 19 FATHER FH: stomach cancer 19 MOTHER Allergies and Home Medications Allergies Coded Allergies: No Known Drug Allergies (Verified , 05/08/09) Home Medications Albuterol Sulfate 1 Puff Puff, 2 PUFF IH Q4H PRN for SHORTNESS OF BREATH, (Reported) 1 PUFF = 90 MCG Albuterol Sulfate 2.5 Mg/3 Ml Vial.neb, 2.5 MG NEB Q4H PRN for SHORTNESS OF BREATH, (Reported) Alprazolam 0.5 Mg Tablet, 0.5 MG PO TID, (Reported) Aripiprazole 10 Mg Tablet, 10 MG PO BID, (Reported) Aspirin 81 Mg Tablet.dr, 81 MG PO DAILY, (Reported) Atorvastatin Calcium 20 Mg Tablet, 20 MG PO HS, (Reported) Carvedilol 12.5 Mg Tablet, 12.5 MG PO BID, (Reported) Duloxetine HCl 60 Mg Capsule.dr, 60 MG PO BID, (Reported) Empagliflozin 25 Mg Tablet, 25 MG PO DAILY, (Reported) Fluticasone/Salmeterol 1 Each Blst.w.dev, 1 PUFF IH BID, (Reported) LAST FILLED 08/18/18 #3 INHALERS Furosemide 40 Mg Tablet, 60 MG PO DAILY, (Reported) TAKES 1 & 1/2 OF A (40 MG) TABLET Gabapentin 400 Mg Capsule, 400 MG PO DAILY, (Reported) Gabapentin 400 Mg Capsule, 800 MG PO HS, (Reported) TAKES 2 (400 MG) TABLETS Levothyroxine Sodium 150 Mcg Tablet, 137 MCG PO DAILY, (Reported) Liraglutide 0.6 Mg/0.1 Ml Pen.injctr, 1.2 MG SQ DAILY, (Reported) LAST FILLED 08/18/18 #27 ML Magnesium Oxide 400 Mg Tablet, 400 MG PO DAILY, (Reported) Multivitamin with Minerals 1 Each Tablet, 1 TAB PO DAILY, (Reported) Nystatin 60 Gm Powder, TP TID PRN for RASH, (Reported) [place] 3 Polyunsat Fatty Acids 1,000 Mg Cap, 1,000 MG PO DAILY, (Reported) Pantoprazole Sodium 40 Mg Tablet.dr, 40 MG PO BID, (Reported) Potassium Chloride 20 Meq Tab.er.prt, 60 MEQ PO DAILY PRN for CRAMPS, (Reported) TAKES 1-3 OF A (20 MEQ) TABLET Sitagliptin Phos/Metformin HCl 1 Each Tbmp.24hr, 1 TAB PO HS, (Reported) Spironolactone 25 Mg Tablet, 25 MG PO DAILY, (Reported) Patient Home Medication List Home Medication List Reviewed: Yes Physical Exam-Cardiology Physical Exam Vital Signs/I&O 08/01/19 08/01/19 08/01/19 08/01/19 02:22 02:30 06:22 06:35 Temp 38.2 35.4 Pulse 135 121 Resp 24 28 B/P (MAP) 112/70 (84) Pulse Ox 100 96 O2 Delivery NIV Bilevel NIV Bilevel O2 Flow Rate 60.00 60.00 08/01/19 08/01/19 08/01/19 08/01/19 06:40 07:00 07:00 07:31 Pulse 126 112 121 Resp 22 26 B/P (MAP) 101/64 (76) Pulse Ox 96 96 96 O2 Delivery NIV Bilevel NIV Bilevel O2 Flow Rate 60.00 45.00 08/01/19 08/01/19 08/01/19 08/01/19 08:00 08:00 09:00 09:13 Pulse 111 112 Resp 22 26 B/P (MAP) 98/69 (79) 108/65 (79) Pulse Ox 98 98 94 92 O2 Delivery NIV Bilevel NIV Bilevel Nasal Cannula O2 Flow Rate 60.00 4.00 4.00 08/01/19 08/01/19 08/01/19 08/01/19 10:00 10:26 10:32 11:03 Pulse 108 109 Resp 25 25 B/P (MAP) 101/62 (75) 116/70 (85) Pulse Ox 96 96 95 O2 Delivery Nasal Cannula Nasal Cannula Nasal Cannula Nasal Cannula O2 Flow Rate 4.00 4.00 2.00 2.00 08/01/19 08/01/19 08/01/19 08/01/19 12:00 12:00 12:23 13:00 Temp 36.0 Pulse 112 112 105 Resp 24 25 B/P (MAP) 103/76 (85) 111/69 (83) Pulse Ox 93 O2 Delivery Nasal Cannula Nasal Cannula O2 Flow Rate 2.00 2.00 Capillary Refill : Constitutional: AAO x 3, well-developed, well-nourished HEENT: EOMI, hearing is well preserved; No xanthelasmas are seen Neck: carotid pulses are 2 + bilaterally, with good upstrokes Respiratory: No accessory muscle use; other (fair to good bilateral air entry) Cardiovascular: regular rate-rhythm, S1 and S2, systolic murmur (soft VALENTINE at card base) Gastrointestinal: No tender; soft; No guarding, No rebound; audible bowel sounds Extremities: swelling (mild to mod, pitting and nonpitting edema of the legs); No clubbing, No cyanosis Neurologic/Psychiatric: oriented x 3, other (moves all limbs equally) Data Review Labs Laboratory Tests 08/01/19 01:58: Glucometer 250H 08/01/19 02:05: White Blood Count 15.5H, Red Blood Count 5.27, Hemoglobin 13.7, Hematocrit 45, Mean Corpuscular Volume 85, Mean Corpuscular Hemoglobin 26, Mean Corpuscular Hemoglobin Concent 30L, Red Cell Distribution Width 18.2H, Platelet Count 267, Mean Platelet Volume 10.0, Neutrophils (%) (Auto) 66, Lymphocytes (%) (Auto) 22, Monocytes (%) (Auto) 10, Eosinophils (%) (Auto) 2, Basophils (%) (Auto) 1, Neutrophils # (Auto) 10.2H, Lymphocytes # (Auto) 3.5, Monocytes # (Auto) 1.5H, Eosinophils # (Auto) 0.3, Basophils # (Auto) 0.1, Neutrophils % (Manual) 62, Lymphocytes % (Manual) 26, Monocytes % (Manual) 5, Eosinophils % (Manual) 2, Band Neutrophils 5, Blood Morphology Comment NORMAL, Prothrombin Time 13.1, INR Comment 1.0, Activated Partial Thromboplast Time 27, Sodium Level 138, Potassium Level 4.8, Chloride Level 98, Carbon Dioxide Level 23, Anion Gap 17H, Blood Urea Nitrogen 18, Creatinine 1.11, Estimat Glomerular Filtration Rate 49, BUN/Creatinine Ratio 16, Glucose Level 311H, Calcium Level 8.9, Corrected Calcium 8.5, Magnesium Level 2.1, Total Bilirubin 0.5, Aspartate Amino Transf (AST/SGOT) 53H, Alanine Aminotransferase (ALT/SGPT) 36, Alkaline Phosphatase 94, Total Creatine Kinase 28L, Creatine Kinase MB 1.6, Troponin I < 0.028, B-Type Natriuretic Peptide 91.2, Total Protein 7.1, Albumin 4.5, Lipase 69, TSH [place] Testing 3.01 08/01/19 02:11: Blood Gas Puncture Site RIGHT RADIAL, Blood Gas Patient Temperature 36.7, Arterial Blood pH 7.23*L, Arterial Blood Partial Pressure CO2 70H, Arterial Blood Partial Pressure O2 129H, Arterial Blood HCO3 28H, Arterial Blood Total CO2 30.6, Arterial Blood Oxygen Saturation 98, Arterial Blood Base Excess 1.5, Jovanny Test YES-POS, Blood Gas Ventilator Setting NO, Blood Gas Inspired Oxygen 60% 08/01/19 02:30: Urine Color YELLOW, Urine Clarity CLEAR, Urine pH 6.5, Urine Specific [place] 1.015L, Urine Protein 3+H, Urine Glucose (UA) 4+H, Urine Ketones NEGATIVE, Urine Nitrite NEGATIVE, Urine Bilirubin NEGATIVE, Urine Urobilinogen NORMAL, Urine Leukocyte Esterase NEGATIVE, Urine RBC (Auto) 1+H, Urine RBC 2-5H, Urine WBC NONE, Urine Squamous Epithelial Cells 5-10, Urine Crystals NONE, Urine Bacteria TRACE, Urine Casts PRESENT, Urine Hyaline Casts 5-10H, Urine Mucus MODERATEH, Urine Culture Indicated NO 08/01/19 03:05: Procalcitonin 0.06 08/01/19 03:45: Blood Gas Puncture Site LEFT RADIAL, Blood Gas Patient Temperature 38.5, Arterial Blood pH 7.35L, Arterial Blood Partial Pressure CO2 63H, Arterial Blood Partial Pressure O2 105H, Arterial Blood HCO3 32H, Arterial Blood Total CO2 33.6H, Arterial Blood Oxygen Saturation 97, Arterial Blood Base Excess 6.5H, Jovanny Test YES-POS, Blood Gas Ventilator Setting NO, Blood Gas Inspired Oxygen 50% 08/01/19 05:17: Glucometer 131H 08/01/19 06:55: Lactic Acid Level 1.20 08/01/19 11:37: Glucometer 161H 08/01/19 12:40: Troponin I 2.313*H Microbiology 08/01/19 Influenza Types A,B Antigen (SUMAN) - Final, Complete Laboratory Tests 08/01/19 02:05 A/P-Cardiology Assessment/Admission Diagnosis Ac NSTEMI DM II Chronic tobacco use (smokes cigarettes) Hypertension H/o hyperlipidemia Obesity Discussion and Recomendations * Given ac NSTEMI and recent unstable symptoms, we recommend card cath with possible ad hoc PCI. We reviewed in detail with her the rationale, procedure, risks, benefits, potential complications, and alternatives of card cath with her. She understands and provides informed consent. We are making arrangements. Clinical Quality Measures DVT/VTE Risk/Contraindication: Risk Factor Score Per Nursin RFS Level Per Nursing on Admit: 4+=Very High JU LOBATO MD [facility] CCD[facility] Aug 01, 2019 13:56 POS
[2019-08-01] MEDS ORDERED: ASPIRIN 81 MG CHEW (CHILDREN'S ASA) ONE (14:47)
[2019-08-01] MEDS ORDERED: CLOPIDOGREL 300 MG (PLAVIX) TABLET PO ONE (14:47)
--- NOTE | 2019-08-01 14:53 | NUR ---
1400 PT TO HEART CENTER VIA BED ACCOMPANIED BY HEART CENTER STAFF.
--- NOTE | 2019-08-01 15:02 | CARDIAC CATHETERIZATION ---
DATE OF SERVICE: 08/01/2019 CARDIAC CATHETERIZATION REPORT PRIMARY PHYSICIAN: Dr. Coleman. The patient is a 68-year-old lady, who was hospitalized with chest discomfort. Initial troponin was normal. Subsequent troponin was mildly elevated. A diagnosis of acute non-ST elevation myocardial infarction was made. Cardiac catheterization was carried out. Informed consent was obtained. DESCRIPTION OF PROCEDURE: She was brought to the cardiac catheterization laboratory. Right groin was prepared and draped in the usual sterile fashion. Lidocaine 1% was used for local anesthesia. Modified Seldinger technique was used to advance a 6-[place] Helenian sheath in the right femoral artery sheath. A 6-[place] JL4 catheter for left coronary angiography. A 6-[place] JR4 catheter for right coronary angiography. A 6-[place] pigtail catheter was used for left heart catheterization and left ventricular angiography. A pigtail was pulled back and removed over a wire. The wire was removed. Angiography of the right femoral artery had been carried out through the sheath at the beginning of the procedure. At the end of the procedure, Mynx was used to achieve hemostasis. She tolerated the procedure well. HEMODYNAMICS: Left ventricular end-diastolic pressure following coronary angiography was 24 mmHg. There was no significant pressure gradient on pullback across the aortic valve. Ascending aortic pressure was 95/59 with a mean of 75 mmHg. CORONARY ANGIOGRAPHY: Left main coronary artery is very short. There is mild proximal calcification of the coronary arteries. Left main coronary artery has diffuse mild plaques. Left circumflex artery is codominant with right coronary artery and has diffuse mild plaques. Right coronary artery has diffuse mild plaques. LEFT VENTRICULAR ANGIOGRAPHY: Left ventricular angiography was carried out in the right anterior oblique projection. Global left ventricular systolic function is impaired. There is anteroapical and diaphragmatic hypokinesis to akinesis. Left ventricular ejection fraction is approximately 25%. There does not appear to be significant mitral regurgitation. CONCLUSIONS: 1. Angiographically mild coronary artery disease. 2. Cardiomyopathy, probably ischemic, with anteroapical and diaphragmatic hypokinesis to akinesis and left ventricular ejection fraction is approximately 25%. 3. Elevated left ventricular end-diastolic pressure. DISCUSSION AND RECOMMENDATIONS: Based on clinical presentation and the results of cardiac catheterization, it appears that the patient may have had transient coronary vessel thrombosis, perhaps in the proximal left anterior descending, which has since resolved. We recommend dual antiplatelet therapy. We recommend therapy with beta-blockers and CHRIS inhibitors. Diuretics would probably also be needed, at least transiently. Statin therapy is also recommended. Further recommendations will be based on her hospital course. Job ID: [id number] DocumentID: [id number] Dictated Date: 08/01/2019 14:53:15 Dot Compliance Coordinator Date: 08/01/2019 15:02:00 Dictated By: JU LOBATO MD, MA, FACP, FACC,
[2019-08-01] MEDS ORDERED: NS IV 1000 ML 1,000 ML IV SCH (15:03)
[2019-08-01] MEDS ORDERED: PATIENT MAY USE OWN MEDS, ALL PO SCH (15:15)
[2019-08-01] MEDS ORDERED: RAMIPRIL 2.5 MG (ALTACE) CAP PO ONE (15:15)
[2019-08-01] MEDS: NS IV 1000 ML 1,000 ML IV SCH ×2 (16:47→21:25)
[2019-08-01] MEDS: RT-ADVAIR HFA 115/21 MCG PER PUFF IH SCH (19:25)
[2019-08-01] MEDS: ALPRAZolam 0.25 MG (XANAX) TAB PO SCH (21:38)
[2019-08-01] MEDS: DOCUSATE SODIUM 100 MG (COLACE) CAP PO SCH (21:39)
[2019-08-01] MEDS: SENNOSIDES 8.6 MG (SENOKOT) TAB PO SCH (21:39)
[2019-08-01] MEDS: PANTOPRAZOLE 40 MG (PROTONIX) TAB PO SCH (21:39)
[2019-08-01] MEDS: DULoxetine 30 MG (CYMBALTA) CAP PO SCH (21:39)
[2019-08-01] MEDS: GABAPENTIN 400 MG (NEURONTIN) CAP PO SCH (21:39)
[2019-08-02] VITALS (15 sets, daily range): BP systolic 103–130; BP diastolic 58–76
[2019-08-02] MEDS: RT-ALBUTEROL/IPRATROPIUM 3 ML (DUONEB) VIAL INH SCH ×6 (02:38→21:52)
[2019-08-02 03:54] LABS: BASOPHILS % (AUTO) 0 % (0-10); EOSINOPHILS % (AUTO) 0 % (0-10); HEMATOCRIT 44 % (35-52); HEMOGLOBIN 13.9 G/DL (11.5-16.0); LYMPHOCYTES # (AUTO) 2.3 X 10^3 (1.0-4.0); LYMPHOCYTES % (AUTO) 18 % (12-44); MEAN CORPUSCULAR HEMOGLOBIN 26 PG (25-34); MEAN CORPUSCULAR HGB CONC 32 G/DL (32-36); MEAN CORPUSCULAR VOLUME 83 FL (80-99); MEAN PLATELET VOLUME 10.7 FL (7.4-10.4); MONOCYTES # (AUTO) 1.4 X 10^3 (0.0-1.0); MONOCYTES % (AUTO) 11 % (0-12); NEUTROPHILS # (AUTO) 9.2 X 10^3 (1.8-7.8); NEUTROPHILS % (AUTO) 72 % (42-75); PLATELET COUNT 229 10^3/uL (130-400); RED CELL DISTRIBUTION WIDTH 18.1 % (10.0-14.5); WHITE BLOOD COUNT 12.8 10^3/uL (4.3-11.0)
[2019-08-02 04:15] LABS: ALANINE AMINOTRANSFERASE 27 U/L (0-55); ALBUMIN 3.6 GM/DL (3.2-4.5); ALKALINE PHOSPHATASE 74 U/L (40-136); BILIRUBIN,TOTAL 0.6 MG/DL (0.1-1.0); BUN/CREATININE RATIO 23; CARBON DIOXIDE 28 MMOL/L (21-32); CHLORIDE 98 MMOL/L (98-107); CREATININE SERUM 0.73 MG/DL (0.60-1.30); GFR ESTIMATED > 60; GLUCOSE 109 MG/DL (70-105); MAGNESIUM 1.9 MG/DL (1.6-2.4); PHOSPHORUS 4.4 MG/DL (2.3-4.7); POTASSIUM 3.9 MMOL/L (3.6-5.0); SODIUM 141 MMOL/L (135-145); TOTAL PROTEIN 5.8 GM/DL (6.4-8.2)
--- NOTE | 2019-08-02 04:48 | Pulmonary Progress Note ---
Subjective Time Seen by a Provider: 04:48 Subjective/Events-last exam Pt is now s/p cath - no intervention. Sepsis Event Evaluation Height, Weight, BMI Height: 4'0.00" Weight: 258lbs. 0.0oz. 117.418458sa; 78.7 BMI Method:Stated Focused Exam Lactate Level 08/01/19 06:55: Lactic Acid Level 1.20 Exam Exam Vital Signs Date Time Temp Pulse Resp B/P (MAP) Pulse Ox O2 Delivery O2 Flow Rate FiO2 08/02/19 04:00 96 Nasal Cannula 2.00 08/02/19 02:38 92 Nasal Cannula 3.00 08/02/19 01:00 92 08/02/19 00:00 96 Nasal Cannula 2.00 08/02/19 00:00 36.4 08/01/19 23:00 79 20 112/60 (77) 91 Nasal Cannula 2.00 08/01/19 22:16 94 Nasal Cannula 3.00 08/01/19 22:00 77 19 116/59 (78) 91 Nasal Cannula 2.00 08/01/19 21:00 90 8 131/70 (90) 93 Nasal Cannula 2.00 08/01/19 20:00 96 Nasal Cannula 2.00 08/01/19 20:00 80 21 109/65 (80) 92 Nasal Cannula 2.00 08/01/19 20:00 36.0 08/01/19 19:25 93 Nasal Cannula 3.00 08/01/19 19:25 96 Nasal Cannula 3.00 08/01/19 19:00 86 08/01/19 19:00 86 15 123/71 (88) 92 Nasal Cannula 2.00 08/01/19 18:00 93 15 117/69 (85) 93 Nasal Cannula 2.00 08/01/19 17:00 86 23 122/65 (84) 92 Nasal Cannula 2.00 08/01/19 16:00 96 Nasal Cannula 2.00 08/01/19 16:00 96 14 119/75 (90) 92 Nasal Cannula 2.00 08/01/19 16:00 36.0 08/01/19 15:24 93 Nasal Cannula 3.00 08/01/19 15:20 102 14 124/63 (83) 93 Nasal Cannula 2.00 08/01/19 14:00 106 35 120/63 (82) Nasal Cannula 2.00 08/01/19 13:00 105 25 111/69 (83) 93 Nasal Cannula 2.00 08/01/19 12:23 112 08/01/19 12:05 96 Nasal Cannula 2.00 08/01/19 12:00 36.0 08/01/19 12:00 112 24 103/76 (85) Nasal Cannula 2.00 08/01/19 11:03 109 25 116/70 (85) 95 Nasal Cannula 2.00 08/01/19 10:32 Nasal Cannula 2.00 08/01/19 10:26 96 Nasal Cannula 4.00 08/01/19 10:00 108 25 101/62 (75) 96 Nasal Cannula 4.00 08/01/19 09:13 92 4.00 08/01/19 09:00 112 26 108/65 (79) 94 Nasal Cannula 4.00 08/01/19 08:00 98 NIV Bilevel 08/01/19 08:00 111 22 98/69 (79) 98 NIV Bilevel 60.00 08/01/19 07:31 121 26 96 45.00 08/01/19 07:00 112 22 101/64 (76) 96 NIV Bilevel 60.00 08/01/19 07:00 126 08/01/19 06:40 96 NIV Bilevel 08/01/19 06:35 35.4 121 28 112/70 (84) 96 NIV Bilevel 60.00 08/01/19 06:22 38.2 I & O 08/02/19 07:00 Intake Total 990 ml Output Total 1500 ml Balance -510 ml Height & Weight Height: 4'0.00" Weight: 258lbs. 0.0oz. 117.839871sk; 78.7 BMI Method:Stated General Appearance: No Apparent Distress, Anxious, Other (wearing BiPAP) Neck: Normal Inspection, Supple Respiratory: Rhonci, Wheezing, Other (wearing BiPAP) Cardiovascular: Regular Rate, Rhythm, No Murmur Capillary Refill: Less Than 3 Seconds Extremity: Normal Inspection, Non Tender, Pedal Edema Neurologic/Psychiatric: Alert, Oriented x3, No Motor/Sensory Deficits, Normal Mood/Affect Skin: Normal Color, Warm/Dry Results Lab Laboratory Tests 08/01/19 02:05 08/02/19 03:10 Assessment/Plan Assessment/Plan Acute on chronic respiratory failure -ABG C02 is 70 -Pt would benefit from vent to mask -Pt currently lives at home alone Dementia -monitor Pneumonia with sepsis -IVF Rocephin and azithromycin -Avitia culture COPDAE -SVNs -Solumedrol NSTEMI s/p cath -Cardiology following Morbid Obesity with VIIS -Will have her f/u with me as out pt and obtain CPAP down load and overnight oximetry. tobacco use. ALICIA MCKEON DO Aug 02, 2019 04:48 POS
[2019-08-02] MEDS: inSUlin ASPART (NovoLOG) 1 UNIT/0.01 ML (CHARGE PER UNIT) SC SCH ×4 (05:56→21:00)
[2019-08-02] MEDS ORDERED: cefTRIAXone 1,000 MG/SWFI 10 ML IV PUSH IV SCH ×2 (06:00)
[2019-08-02] MEDS: cefTRIAXone FOR IV USE 2,000 MG in WATER (STERILE) FOR INJECTION 20 ML IV SCH (06:15)
[2019-08-02] MEDS: RT-ADVAIR HFA 115/21 MCG PER PUFF IH SCH ×2 (06:34→18:12)
--- NOTE | 2019-08-02 08:06 | Diagnostic Imaging Report ---
INDICATION: Acute respiratory failure. COMPARISON: 08/01/2019 FINDINGS: Single frontal radiographic view of the chest was obtained and again demonstrates mild cardiomegaly and pulmonary vascular congestion. There is also persistent diffuse prominence of the interstitium. Overall, aeration is stable. There is no new large effusion, focal consolidation, nor pneumothorax. Osseous structures show no gross acute abnormalities. IMPRESSION: 1. Stable exam of the chest showing cardiomegaly with vascular congestion and probable mild interstitial pulmonary edema. Dictated by: Dictated on workstation # [id number]
[2019-08-02] MEDS: DOCUSATE SODIUM 100 MG (COLACE) CAP PO SCH ×2 (08:51→22:27)
[2019-08-02] MEDS: ALPRAZolam 0.25 MG (XANAX) TAB PO SCH ×3 (08:51→22:27)
[2019-08-02] MEDS: PANTOPRAZOLE 40 MG (PROTONIX) TAB PO SCH ×2 (08:52→22:26)
[2019-08-02] MEDS: AZITHROMYCIN 250 MG TAB (ZITHROMAX) PO SCH (08:52)
[2019-08-02] MEDS ORDERED: RAMIPRIL 1.25 MG PO SCH (09:00)
[2019-08-02] MEDS ORDERED: ASPIRIN E.C. 81 MG (ECOTRIN) TAB PO SCH (09:00)
[2019-08-02] MEDS: CLOPIDOGREL 75 MG (PLAVIX) TABLET PO SCH (09:02)
[2019-08-02] MEDS: FUROSEMIDE 40 MG (LASIX) TAB PO SCH (09:02)
[2019-08-02] MEDS: GABAPENTIN 400 MG (NEURONTIN) CAP PO SCH ×2 (09:02→22:26)
[2019-08-02] MEDS: SPIRONOLACTONE 25 MG (ALDACTONE) TAB PO SCH (09:02)
[2019-08-02] MEDS: SENNOSIDES 8.6 MG (SENOKOT) TAB PO SCH ×2 (09:03→22:26)
[2019-08-02] MEDS: DULoxetine 30 MG (CYMBALTA) CAP PO SCH ×2 (09:06→22:26)
[2019-08-02] MEDS: NS IV 1000 ML 1,000 ML IV SCH ×2 (09:10→22:28)
--- NOTE | 2019-08-02 09:57 | Progress Note - Cardiology ---
Cardiology SOAP Progress Note Subjective: No recurrence of cp No palp or syncope Shortness of breath somewhat better, but has shortness of breath with mild exertion Objective: I&O/Vital Signs 08/01/19 08/01/19 08/01/19 08/02/19 22:00 22:16 23:00 00:00 Pulse 77 79 83 Resp 19 20 17 B/P (MAP) 116/59 (78) 112/60 (77) 118/59 (78) Pulse Ox 91 94 91 91 O2 Delivery Nasal Cannula Nasal Cannula Nasal Cannula Nasal Cannula O2 Flow Rate 2.00 3.00 2.00 2.00 08/02/19 08/02/19 08/02/19 08/02/19 00:00 00:00 01:00 01:00 Temp 36.4 Pulse 87 92 Resp 17 B/P (MAP) 107/60 (76) Pulse Ox 96 94 O2 Delivery Nasal Cannula Nasal Cannula O2 Flow Rate 2.00 2.00 08/02/19 08/02/19 08/02/19 08/02/19 02:00 02:38 03:05 04:00 Pulse 75 83 Resp 23 B/P (MAP) 110/59 (76) 118/68 (85) Pulse Ox 93 92 91 96 O2 Delivery Nasal Cannula Nasal Cannula Nasal Cannula Nasal Cannula O2 Flow Rate 2.00 3.00 2.00 2.00 08/02/19 08/02/19 08/02/19 08/02/19 04:00 04:55 05:00 06:00 Pulse 79 72 71 80 Resp 12 23 14 10 B/P (MAP) 130/68 (88) 125/71 (89) 112/58 (76) Pulse Ox 93 91 92 93 O2 Delivery Nasal Cannula Nasal Cannula Nasal Cannula Nasal Cannula O2 Flow Rate 2.00 4.00 4.00 4.00 08/02/19 08/02/19 08/02/19 08/02/19 06:32 07:00 07:00 08:00 Pulse 107 96 98 Resp 23 B/P (MAP) 122/75 (91) 121/61 (81) Pulse Ox 93 95 92 O2 Delivery Nasal Cannula Nasal Cannula Nasal Cannula O2 Flow Rate 4.00 4.00 4.00 08/02/19 09:00 Pulse 87 B/P (MAP) 121/67 (85) Pulse Ox 92 O2 Delivery Nasal Cannula O2 Flow Rate 4.00 08/02/19 00:00 Intake Total 550 ml Output Total 850 ml Balance -300 ml Weight (Pounds): 258 Weight (Ounces): 0.0 Weight (Calculated Kilograms): 117.423152 Constitutional: AAO x 3, well-developed, well-nourished Respiratory: No accessory muscle use; other (fair to good bilateral air entry) Cardiovascular: regular rate-rhythm, S1 and S2, systolic murmur (soft VALENTINE at card base) Gastrointestional: No tender; soft; No guarding, No rebound; audible bowel sounds Extremities: swelling (mild to mod, pitting and nonpitting edema of the legs); No clubbing, No cyanosis Neurologic/Psychiatric: oriented x 3, other (moves all limbs equally) Results/Procedures: Labs Laboratory Tests 08/01/19 11:37: Glucometer 161H 08/01/19 12:40: Troponin I 2.313*H 08/01/19 15:48: Glucometer 143H 08/01/19 20:02: Glucometer 133H 08/02/19 03:10: White Blood Count 12.8H, Red Blood Count 5.30, Hemoglobin 13.9, Hematocrit 44, Mean Corpuscular Volume 83, Mean Corpuscular Hemoglobin 26, Mean Corpuscular Hemoglobin Concent 32, Red Cell Distribution Width 18.1H, Platelet Count 229, Mean Platelet Volume 10.7H, Neutrophils (%) (Auto) 72, Lymphocytes (%) (Auto) 18, Monocytes (%) (Auto) 11, Eosinophils (%) (Auto) 0, Basophils (%) (Auto) 0, Neutrophils # (Auto) 9.2H, Lymphocytes # (Auto) 2.3, Monocytes # (Auto) 1.4H, Eosinophils # (Auto) 0.0, Basophils # (Auto) 0.0, Sodium Level 141, Potassium Level 3.9, Chloride Level 98, Carbon Dioxide Level 28, Anion Gap 15H, Blood Urea Nitrogen 17, Creatinine 0.73, Estimat Glomerular Filtration Rate > 60, BUN/Creatinine Ratio 23, Glucose Level 109H, Calcium Level 9.0, Corrected Calcium 9.3, Phosphorus Level 4.4, Magnesium Level 1.9, Total Bilirubin 0.6, Aspartate Amino Transf (AST/SGOT) 29, Alanine Aminotransferase (ALT/SGPT) 27, Alkaline Phosphatase 74, Troponin I 2.233*H, Total Protein 5.8L, Albumin 3.6 Microbiology 08/01/19 Blood Culture - Preliminary, Resulted No growth 08/01/19 Influenza Types A,B Antigen (SUMAN) - Final, Complete Laboratory Tests 08/01/19 02:05 08/02/19 03:10 A/P: Assessment: Ac NSTEMI on 08/01/19 Card cath on 08/01/19: Angiographically mild coronary artery disease; cardiomyopathy, probably ischemic, with anteroapical and diaphragmatic hypokinesis to akinesis; LVEF 25%; elevated LVEDP Ischemic cardiomyopathy with acute systolic CHF DM II Chronic tobacco use (smokes cigarettes) Hypertension H/o hyperlipidemia Obesity with obesity-hypoventilation and IVIS Plan: * Pulm consult for IVIS * Treat with bb and CHRIS-inhib and DAPT and statins * Move to cardiac step-down * Keep on tele JU LOBATO MD FACP [facility] CCDS Aug 02, 2019 09:57 POS
[2019-08-02] MEDS ORDERED: NYST15CR TP (10:14)
[2019-08-02] MEDS ORDERED: LIRA0.6P3 SC (10:14)
[2019-08-02] MEDS ORDERED: SITA1TAB6 PO (10:14)
[2019-08-02] MEDS ORDERED: LEVO137T2 PO (10:14)
[2019-08-02] MEDS ORDERED: PEDI18TA2 PO (10:15)
--- NOTE | 2019-08-02 10:15 | NUR ---
WENT OVER THE EXT MED HX WITH THE PATIENT AND SHE VERIFIED HOW SHE TAKES EACH MEDICATION. HER JANUMET IS WRITTEN #180 FOR 90 DAYS HOWEVER SHE STATES SHE ONLY TAKES 1 DAILY. SHE DID NOT REALIZE IT WAS WRITTEN DIFFERENTLY, SHE IS GOING TO DISCUSS WITH HER DRMohsen BEFORE STARTING TO TAKE IT DIFFERENTLY. SHE HAS NOT FILLED VICTOZA SINCE 03-26-19 FOR 90 DAYS. SHE STATES SHE FORGETS TO TAKE THIS BECAUSE IT IS IN THE REFRIGERATOR, SHE TAKES IT PROBABLY TWICE A WEEK.
[2019-08-02] MEDS ORDERED: RAMIPRIL 5 MG (ALTACE) CAP PO NR (10:30)
[2019-08-02] MEDS: ENOXAPARIN 40 MG/0.4 ML (LOVENOX) SYR SC SCH (11:00)
--- NOTE | 2019-08-02 14:04 | NUR ---
RD ASSESSMENT PMHx: HTN; DM; morbid obesity; hypercholesterolemia; COPD; GERD; hypothyroidism PT INTERACTION: Pt was awake and pleasant during nutrition assessment. Pt states current appetite is poor, and has been for the past week. Note pt avg PO intake is <75% x1d, per chart review. Pt states trying to follow a "low-CHO and low-fat diet" at home, and currently has no issues with chewing/swallowing at this time. Note pt wears dentures. Pt states no current issues with n/v/c/d at this time. Note last BM was 08/01 per pt, and pt currenly on bowel regimen of miralax, colace, senna. Pt states no recent wt changes. Note unable to determine recent wt hx, per chart review. Pt states current DM management is pretty good, and last HbA1c was 6.1 (07/16/19). ABNORMAL NUTRITION-RELATED LAB VALUES: Pro 5.8 (L); glu 157 (H) Est. kcal needs: 9082-4937 kcal (15-18 kcal/kg) Est. Pro needs: 63-82 g Pro (0.6-0.8 g Pro/kg) PES STATEMENT: Inadequate oral intake (NI-2.1) related to loss of appetite as evidenced by pt interview INTERVENTION: Continue with current diet order of CHO 60g/m 1snack diet. Encouraged pt to eat when able. Provided handout on CHO counting and discussed maintaining consistent intake throughout the day. Pt appeared to be confident in monitoring CHO intake as discharge. MONITOR/EVALUATE: PO Intake; Plan of Care; Hydration Status; Weight Status; Lab Values Serjio Schultz, MS, RD, LD Ext. 133
--- NOTE | 2019-08-02 17:17 | Progress Note ---
Subjective Date Seen by a Provider: Aug 02, 2019 Time Seen by a Provider: 13:00 Subjective/Events-last exam Fwup Acute on Chronic Respiratory Failure, Pneumonia with Sepsis, Acute NSTEMI, COPD with acute exacerbation. Had cardiac cath and no blockages that required angioplasty or stenting. Feeling better and wants to go home. Focused Exam Lactate Level 08/01/19 06:55: Lactic Acid Level 1.20 Objective Exam Vital Signs Date Time Temp Pulse Resp B/P (MAP) Pulse Ox O2 Delivery O2 Flow Rate FiO2 08/02/19 16:00 96 Nasal Cannula 2.00 08/02/19 15:01 36.4 83 20 103/60 (74) 92 Nasal Cannula 4.00 08/02/19 14:43 92 Nasal Cannula 4.00 08/02/19 13:00 87 08/02/19 12:00 96 Nasal Cannula 2.00 08/02/19 10:37 92 Nasal Cannula 4.00 08/02/19 10:00 76 117/64 (81) 93 Nasal Cannula 4.00 08/02/19 09:00 87 121/67 (85) 92 Nasal Cannula 4.00 08/02/19 08:00 98 121/61 (81) 92 Nasal Cannula 4.00 08/02/19 08:00 96 Nasal Cannula 2.00 08/02/19 07:00 96 23 122/75 (91) 95 Nasal Cannula 4.00 08/02/19 07:00 107 08/02/19 07:00 36.2 08/02/19 06:32 93 Nasal Cannula 4.00 08/02/19 06:00 80 10 112/58 (76) 93 Nasal Cannula 4.00 08/02/19 05:00 71 14 125/71 (89) 92 Nasal Cannula 4.00 08/02/19 04:55 72 23 91 Nasal Cannula 4.00 08/02/19 04:00 79 12 130/68 (88) 93 Nasal Cannula 2.00 08/02/19 04:00 96 Nasal Cannula 2.00 08/02/19 03:05 83 23 118/68 (85) 91 Nasal Cannula 2.00 08/02/19 02:38 92 Nasal Cannula 3.00 08/02/19 02:00 75 110/59 (76) 93 Nasal Cannula 2.00 08/02/19 01:00 92 08/02/19 01:00 87 17 107/60 (76) 94 Nasal Cannula 2.00 08/02/19 00:00 96 Nasal Cannula 2.00 08/02/19 00:00 36.4 08/02/19 00:00 83 17 118/59 (78) 91 Nasal Cannula 2.00 08/01/19 23:00 79 20 112/60 (77) 91 Nasal Cannula 2.00 08/01/19 22:16 94 Nasal Cannula 3.00 08/01/19 22:00 77 19 116/59 (78) 91 Nasal Cannula 2.00 08/01/19 21:00 90 8 131/70 (90) 93 Nasal Cannula 2.00 08/01/19 20:00 96 Nasal Cannula 2.00 08/01/19 20:00 80 21 109/65 (80) 92 Nasal Cannula 2.00 08/01/19 20:00 36.0 08/01/19 19:25 93 Nasal Cannula 3.00 08/01/19 19:25 96 Nasal Cannula 3.00 08/01/19 19:00 86 08/01/19 19:00 86 15 123/71 (88) 92 Nasal Cannula 2.00 08/01/19 18:00 93 15 117/69 (85) 93 Nasal Cannula 2.00 I & O 08/02/19 07:00 Intake Total 1010 ml Output Total 1650 ml Balance -640 ml Capillary Refill : Less Than 3 Seconds General Appearance: No Apparent Distress Neck: Supple Respiratory: Lungs Clear, Decreased Breath Sounds Cardiovascular: Regular Rate, Rhythm Gastrointestinal: normal bowel sounds, non tender, soft Extremity: Non Tender, No Calf Tenderness, Pedal Edema Neurologic/Psychiatric: Alert, Oriented x3 Skin: Warm/Dry Results Lab Laboratory Tests 08/01/19 20:02: Glucometer 133H 08/02/19 03:10: White Blood Count 12.8H, Red Blood Count 5.30, Hemoglobin 13.9, Hematocrit 44, Mean Corpuscular Volume 83, Mean Corpuscular Hemoglobin 26, Mean Corpuscular Hemoglobin Concent 32, Red Cell Distribution Width 18.1H, Platelet Count 229, Mean Platelet Volume 10.7H, Neutrophils (%) (Auto) 72, Lymphocytes (%) (Auto) 18, Monocytes (%) (Auto) 11, Eosinophils (%) (Auto) 0, Basophils (%) (Auto) 0, Neutrophils # (Auto) 9.2H, Lymphocytes # (Auto) 2.3, Monocytes # (Auto) 1.4H, Eosinophils # (Auto) 0.0, Basophils # (Auto) 0.0, Sodium Level 141, Potassium Level 3.9, Chloride Level 98, Carbon Dioxide Level 28, Anion Gap 15H, Blood Urea Nitrogen 17, Creatinine 0.73, Estimat Glomerular Filtration Rate > 60, BUN/Creatinine Ratio 23, Glucose Level 109H, Calcium Level 9.0, Corrected Calcium 9.3, Phosphorus Level 4.4, Magnesium Level 1.9, Total Bilirubin 0.6, Aspartate Amino Transf (AST/SGOT) 29, Alanine Aminotransferase (ALT/SGPT) 27, Alkaline Phosphatase 74, Troponin I 2.233*H, Total Protein 5.8L, Albumin 3.6 08/02/19 12:50: Glucometer 157H Microbiology 08/01/19 Blood Culture - Preliminary, Resulted No growth 08/01/19 Influenza Types A,B Antigen (SUMAN) - Final, Complete Assessment/Plan Assessment/Plan Assess & Plan/Chief Complaint 1. Acute on Chronic Respiratory Failure--Has not been using her CPAP since she started oxygen--only wearing it at night 2. Pneumonia with Sepsis--on Rocephin/Zithromax 3. Acute NSTEMI--S/P cardiac cath 4. COPD with acute exacerbation--on routine SVNS 5. DM II--on accuchecks with SSI 6. Hypertension--stable Clinical Quality Measures DVT/VTE Risk/Contraindication: Risk Factor Score Per Nursin RFS Level Per Nursing on Admit: 4+=Very High JUDITH KAUFMAN DO Aug 02, 2019 17:17 POS
[2019-08-02] MEDS: CARVEDILOL 6.25 MG (COREG) TAB PO SCH (22:26)
[2019-08-03] MEDS: RT-ALBUTEROL/IPRATROPIUM 3 ML (DUONEB) VIAL INH SCH ×6 (01:46→22:08)
[2019-08-03 03:54] LABS: BASOPHILS % (AUTO) 0 % (0-10); EOSINOPHILS # (AUTO) 0.1 10^3/uL (0.0-0.3); EOSINOPHILS % (AUTO) 1 % (0-10); HEMATOCRIT 44 % (35-52); HEMOGLOBIN 13.7 G/DL (11.5-16.0); LYMPHOCYTES # (AUTO) 2.9 X 10^3 (1.0-4.0); LYMPHOCYTES % (AUTO) 30 % (12-44); MEAN CORPUSCULAR HEMOGLOBIN 26 PG (25-34); MEAN CORPUSCULAR HGB CONC 31 G/DL (32-36); MEAN CORPUSCULAR VOLUME 82 FL (80-99); MEAN PLATELET VOLUME 10.3 FL (7.4-10.4); MONOCYTES # (AUTO) 0.9 X 10^3 (0.0-1.0); MONOCYTES % (AUTO) 9 % (0-12); NEUTROPHILS # (AUTO) 5.8 X 10^3 (1.8-7.8); NEUTROPHILS % (AUTO) 60 % (42-75); PLATELET COUNT 230 10^3/uL (130-400); WHITE BLOOD COUNT 9.7 10^3/uL (4.3-11.0)
[2019-08-03 04:00] VITALS: BP 110/71
[2019-08-03 04:10] LABS: BUN/CREATININE RATIO 24; CALCIUM 8.9 MG/DL (8.5-10.1); CARBON DIOXIDE 31 MMOL/L (21-32); CHLORIDE 93 MMOL/L (98-107); CREATININE SERUM 0.82 MG/DL (0.60-1.30); GFR ESTIMATED > 60; GLUCOSE 128 MG/DL (70-105); MAGNESIUM 1.9 MG/DL (1.6-2.4); PHOSPHORUS 4.1 MG/DL (2.3-4.7); POTASSIUM 3.4 MMOL/L (3.6-5.0); SODIUM 136 MMOL/L (135-145)
--- NOTE | 2019-08-03 05:53 | Pulmonary Progress Note ---
Subjective Time Seen by a Provider: 08:06 Subjective/Events-last exam No complications noted. Sepsis Event Evaluation Height, Weight, BMI Height: 4'0.00" Weight: 258lbs. 0.0oz. 117.497437jz; 38.00 BMI Method:Stated Focused Exam Lactate Level 08/01/19 06:55: Lactic Acid Level 1.20 Exam Exam Vital Signs Date Time Temp Pulse Resp B/P (MAP) Pulse Ox O2 Delivery O2 Flow Rate FiO2 08/03/19 04:00 36.5 74 17 110/71 (84) 94 Nasal Cannula 4.00 08/03/19 01:46 93 Nasal Cannula 4.00 08/03/19 01:00 70 08/02/19 23:59 36.2 76 20 112/71 (85) 96 Nasal Cannula 4.00 08/02/19 21:52 92 Nasal Cannula 4.00 08/02/19 20:00 96 Nasal Cannula 2.00 08/02/19 20:00 36.1 92 20 128/76 (93) 94 Nasal Cannula 3.50 08/02/19 19:00 80 08/02/19 18:12 92 Nasal Cannula 4.00 08/02/19 16:59 36.8 77 22 107/68 (81) 94 Nasal Cannula 3.50 08/02/19 16:00 96 Nasal Cannula 2.00 08/02/19 15:01 36.4 83 20 103/60 (74) 92 Nasal Cannula 4.00 08/02/19 14:43 92 Nasal Cannula 4.00 08/02/19 13:00 87 08/02/19 12:00 96 Nasal Cannula 2.00 08/02/19 10:37 92 Nasal Cannula 4.00 08/02/19 10:00 76 117/64 (81) 93 Nasal Cannula 4.00 08/02/19 09:00 87 121/67 (85) 92 Nasal Cannula 4.00 08/02/19 08:00 98 121/61 (81) 92 Nasal Cannula 4.00 08/02/19 08:00 96 Nasal Cannula 2.00 08/02/19 07:00 96 23 122/75 (91) 95 Nasal Cannula 4.00 08/02/19 07:00 107 08/02/19 07:00 36.2 08/02/19 06:32 93 Nasal Cannula 4.00 08/02/19 06:00 80 10 112/58 (59) 93 Nasal Cannula 4.00 I & O 08/03/19 07:00 Intake Total 2000 ml Output Total 4050 ml Balance -2050 ml Height & Weight Height: 4'0.00" Weight: 258lbs. 0.0oz. 117.370562yn; 38.00 BMI Method:Stated General Appearance: No Apparent Distress HEENT: PERRL/EOMI, Pharynx Normal Neck: Supple Respiratory: Lungs Clear, Decreased Breath Sounds Cardiovascular: Regular Rate, Rhythm Capillary Refill: Less Than 3 Seconds Gastrointestinal: normal bowel sounds, non tender, soft Extremity: Non Tender, No Calf Tenderness, Pedal Edema Neurologic/Psychiatric: Alert, Oriented x3 Skin: Warm/Dry Results Lab Laboratory Tests 08/02/19 03:10 08/03/19 03:15 Assessment/Plan Assessment/Plan Acute on chronic respiratory failure - much improved -ABG C02 is 70 -Pt would benefit from vent to mask -Pt currently lives at home alone Dementia -monitor Pneumonia with sepsis -IVF Rocephin and azithromycin -Avitia culture COPDAE -SVNs NSTEMI s/p cath -Cardiology following Morbid Obesity with IVIS -Will have her f/u with me as out pt and obtain CPAP down load and overnight oximetry. tobacco use. Will transfer to 4th floor with tele. ALICIA MCKEON DO Aug 03, 2019 05:53 POS
[2019-08-03] MEDS: inSUlin ASPART (NovoLOG) 1 UNIT/0.01 ML (CHARGE PER UNIT) SC SCH ×4 (06:06→21:13)
[2019-08-03] MEDS ORDERED: WATER (STERILE) FOR INJECTION 20 ML ONE (06:25)
[2019-08-03] MEDS ORDERED: cefTRIAXone 2 GM IV (ROCEPHIN) VIAL ONE (06:25)
[2019-08-03] MEDS: cefTRIAXone FOR IV USE 2,000 MG in WATER (STERILE) FOR INJECTION 20 ML IV SCH (06:48)
[2019-08-03] MEDS: RT-ADVAIR HFA 115/21 MCG PER PUFF IH SCH ×2 (07:13→19:19)
--- NOTE | 2019-08-03 07:25 | Diagnostic Imaging Report ---
INDICATION: Dyspnea. COMPARISON: 08/02/2019. FINDINGS: Single frontal view of the chest demonstrates persistent mild cardiomegaly. Pulmonary vasculature is improved. The lungs are well aerated and clear. No large pleural effusion or pneumothorax is seen. The visualized osseous structures show no acute abnormalities. IMPRESSION: 1. Persistent cardiomegaly, but no evidence of overt failure is seen on today's exam. Dictated by: Dictated on workstation # [id number]
[2019-08-03 08:00] VITALS: BP 133/74
[2019-08-03] MEDS: ALPRAZolam 0.25 MG (XANAX) TAB PO SCH ×3 (08:35→21:13)
[2019-08-03] MEDS: AZITHROMYCIN 250 MG TAB (ZITHROMAX) PO SCH (08:36)
[2019-08-03] MEDS: SPIRONOLACTONE 25 MG (ALDACTONE) TAB PO SCH (08:36)
[2019-08-03] MEDS: SENNOSIDES 8.6 MG (SENOKOT) TAB PO SCH ×2 (08:36→21:12)
[2019-08-03] MEDS: CARVEDILOL 6.25 MG (COREG) TAB PO SCH (08:36)
[2019-08-03] MEDS: FUROSEMIDE 40 MG (LASIX) TAB PO SCH (08:36)
[2019-08-03] MEDS: CLOPIDOGREL 75 MG (PLAVIX) TABLET PO SCH (08:36)
[2019-08-03] MEDS: RAMIPRIL 5 MG (ALTACE) CAP PO SCH (08:36)
[2019-08-03] MEDS: DOCUSATE SODIUM 100 MG (COLACE) CAP PO SCH ×2 (08:36→21:13)
[2019-08-03] MEDS: GABAPENTIN 400 MG (NEURONTIN) CAP PO SCH ×2 (08:36→21:12)
[2019-08-03] MEDS: PANTOPRAZOLE 40 MG (PROTONIX) TAB PO SCH ×2 (08:36→21:13)
[2019-08-03] MEDS: DULoxetine 30 MG (CYMBALTA) CAP PO SCH ×2 (08:37→21:13)
[2019-08-03] MEDS ORDERED: KCL 20 MEQ TAB (K-DUR) PO NR (09:00)
--- NOTE | 2019-08-03 09:09 | Progress Note - Cardiology ---
Cardiology SOAP Progress Note Subjective: Sitting up in bed. Denies any c/o CP, dyspnea, palpitations. States she feels better and wants to go home. Objective: I&O/Vital Signs 08/03/19 08/03/19 08/03/19 08/03/19 07:00 07:13 08:00 09:00 Temp 37.1 Pulse 75 74 Resp 17 B/P (MAP) 133/74 (93) Pulse Ox 94 94 96 O2 Delivery Nasal Cannula Nasal Cannula Nasal Cannula O2 Flow Rate 4.00 3.00 3.00 08/03/19 08/03/19 08/03/19 08/03/19 11:19 12:00 13:00 15:18 Temp 37.0 Pulse 95 97 Resp 24 B/P (MAP) 116/64 (81) Pulse Ox 92 94 92 O2 Delivery Nasal Cannula Nasal Cannula Nasal Cannula O2 Flow Rate 3.00 3.00 3.00 08/03/19 15:56 Pulse 112 Resp 20 B/P (MAP) 140/85 (103) Pulse Ox 95 O2 Delivery Nasal Cannula O2 Flow Rate 3.00 08/02/19 23:59 Intake Total 1000 ml Output Total 1250 ml Balance -250 ml Weight (Pounds): 258 Weight (Ounces): 0.0 Weight (Calculated Kilograms): 117.535617 Constitutional: AAO x 3, well-developed, well-nourished Respiratory: No accessory muscle use; rhonchi (exp), other (fair to good bilateral air entry) Cardiovascular: regular rate-rhythm, S1 and S2, systolic murmur (soft VALENTINE at card base) Gastrointestional: No tender; soft; No guarding, No rebound; audible bowel sounds Extremities: swelling (mild to mod, pitting and nonpitting edema of the legs); No clubbing, No cyanosis Neurologic/Psychiatric: oriented x 3, other (moves all limbs equally) Skin: No rash on exposed areas, No ulcerations on exposed areas Results/Procedures: Labs Laboratory Tests 08/02/19 17:04: Glucometer 122H 08/02/19 22:22: Glucometer 109 08/03/19 03:15: White Blood Count 9.7, Red Blood Count 5.35, Hemoglobin 13.7, Hematocrit 44, Mean Corpuscular Volume 82, Mean Corpuscular Hemoglobin 26, Mean Corpuscular Hemoglobin Concent 31L, Red Cell Distribution Width 18.0H, Platelet Count 230, Mean Platelet Volume 10.3, Neutrophils (%) (Auto) 60, Lymphocytes (%) (Auto) 30, Monocytes (%) (Auto) 9, Eosinophils (%) (Auto) 1, Basophils (%) (Auto) 0, Neutrophils # (Auto) 5.8, Lymphocytes # (Auto) 2.9, Monocytes # (Auto) 0.9, Eosinophils # (Auto) 0.1, Basophils # (Auto) 0.0, Sodium Level 136, Potassium Level 3.4L, Chloride Level 93L, Carbon Dioxide Level 31, Anion Gap 12, Blood Urea Nitrogen 20H, Creatinine 0.82, Estimat Glomerular Filtration Rate > 60, BU N/Creatinine Ratio 24, Glucose Level 128H, Calcium Level 8.9, Phosphorus Level 4.1, Magnesium Level 1.9 08/03/19 10:59: Glucometer 155H 08/03/19 16:14: Glucometer 123H Microbiology 08/01/19 Blood Culture - Preliminary, Resulted No growth 08/01/19 Influenza Types A,B Antigen (SUMAN) - Final, Complete Procedures NAME: JOHN GUERRERO [facility] REC#: [id number] PT STATUS: ADM IN : 1950 PHYSICIAN: MALLORIE ABEL MD ADMIT DATE: 08/01/19/[facility] Signed Date of Exam: 08/03/19 CHEST 1 VIEW, AP/PA ONLY INDICATION: Dyspnea. COMPARISON: 08/02/2019. FINDINGS: Single frontal view of the chest demonstrates persistent mild cardiomegaly. Pulmonary vasculature is improved. The lungs are well aerated and clear. No large pleural effusion or pneumothorax is seen. The visualized osseous structures show no acute abnormalities. IMPRESSION: 1. Persistent cardiomegaly, but no evidence of overt failure is seen on today's exam. Dictated by: Dictated on workstation # [id number] Dict: 08/03/19721 Trans: 08/03/19 08 Interpreted by: NEREYDA DONG MD Card cath on 08/01/19: Angiographically mild coronary artery disease; cardiomyopathy, probably ischemic, with anteroapical and diaphragmatic hyp okinesis to akinesis; LVEF 25%; elevated LVEDP Ischemic cardiomyopathy with acute systolic CHF Echo of 08/03/19: LVEF 40-45%, apical hypokinesis, grade 1 diastolic dysfunction DM II Chronic tobacco use (smokes cigarettes) Hypertension H/o hyperlipidemia Obesity with obesity-hypoventilation and IVIS Plan: * Pulm consult for IVIS * Continue bb and CHRIS-inhib and DAPT and statins * Move to cardiac step-down * Keep on tele * Increase activity * Replace electrolytes Physician Assessment Physician Assessment No cp. Shortness of breath is better compared to time of admission. No palp or syncope Lungs: dec bs at bases Cor: reg Ext: no c/c; mod leg edema A&R * As documented in our note above that I updated (italics) and as noted below * Complex management due to multiple CV issues and other comorbidities * Treat cardiomyopathy with CHRIS-inhib. Increase bb. Continue diuretics * Monitor labs HAN MAX CONDENSER OPERATOR Aug 03, 2019 09:09 JU WITT MD FACP FAC CCDS Aug 03, 2019 17:06 POS
--- NOTE | 2019-08-03 10:00 | NUR ---
CM/SS spoke with the patient in regards to the SS consult. The patient states that she lives at home and feels she does well. She stated that she has a lady that cleans the home every two weeks. She did not feel she had any needs for at discharge. Will continue to follow.
[2019-08-03] MEDS ORDERED: ENOXAPARIN 40 MG/0.4 ML (LOVENOX) SYR SC SCH (11:00)
--- NOTE | 2019-08-03 11:34 | Physical Therapy Evaluation ---
PT Evaluation-General Medical Diagnosis Admission Date Aug 01, 2019 at 04:00 Medical Diagnosis: possible pnuemonia, uncontrolled DM Onset Date: Aug 01, 2019 Therapy Diagnosis Therapy Diagnosis: weakness, debility Height/Weight Height (Feet): 4 Height (Inches): 0.00 Weight (Pounds): 258 Weight (Ounces): 0.0 Precautions Precautions/Isolations: Standard Precautions Weight Bear Status Right Lower Extremity: Right Weight Bearing/Tolerated Left Lower Extremity: Left Weight Bearing/Tolerated Referral Physician: Laverne Reason for Referral: Evaluation/Treatment Medical History Pertinent Medical History: Arthritis, COPD, DM, HTN Current History EMS secondary to SOB from home. Social History Home: Single Level Current Living Status: Alone Entry Into Home: Level Entry Prior Prior Level of Function SCALE: Activities may be completed with or without assistive devices. 9-Xqbieydzru-uzrdlxg completes the activity by him/herself with no assistance from a helper. 5-Set-up or Clean-up Assistance-helper sets up or cleans up; patient completes activity. [place] assists only prior to or following the activity. 4-Supervision or Touching Assistance-helper provides verbal cues and/or touching/steadying and/or contact guard assistance as patient completes activity. Assistance may be provided throughout the activity or intermittently. 3-Partial/Moderate Assistance-helper does LESS THAN HALF the effort. [place] lifts, holds or supports trunk or limbs, but provides less than half the effort. 2-Substantial/Maximal Assistance-helper does MORE THAN HALF the effort. [place] lifts or holds trunk or limbs and provides more than half the effort. 8-Qdawzivke-ljlctt does ALL the effort. Patient does none of the effort to complete the activity. Or, the assistance of 2 or more helpers is required for the patient to complete the activity. If activity was not attempted, code reason: 7-Patient Refused. 9-Not Applicable-not attempted and the patient did not perform the activity before the current illness, exacerbation or injury. 10-Not Attempted due to Environmental Limitations-(lack of equipment, weather restraints, etc.). 88-Not Attempted due to Medical Conditions or Safety Concerns. Bed Mobility: 6 Transfers (B,C,W/C): 6 Gait: 6 Stairs: 6 Indoor Mobility (Ambulation): Independent Stairs: Independent Prior Devices Use: None PT Evaluation-Current Subjective Patient agrees to PT and would like to sit up in chair for lunch. Patient reports no pain or SOB at initiation of treatment on 3L O2. Pain Numeric Pain Scale: 0-No Pain Location: No Pain Reported Objective Patient Orientation: Normal For Age Problem Solving: Good Attachments: Oxygen (3L), Triana Catheter ROM/Strength ROM Lower Extremities WFL Strength Lower Extremities Grossly 4/5 Integumentary/Posture Integumentary See nursing notes Bowel Incontinence: No Bladder Incontinence: Yes Posture WFL Neuromuscular (Tone, Coordination, Reflexes) grossly intact Sensory Vision: Functional Hearing: Functional Transfers Roll Left to Right (QC): 6 Lying to Sitting/Side of Bed(Q: 4 Sit to Stand (QC): 6 Gait Does the Patient Walk?: Yes Mode of Locomotion: Walk Anticipated Mode of Locomotion: Walk Walk 10 feet (QC): 5 Walk 50 ft with 2 Turns(QC): 5 Walk 150 ft (QC): 5 Distance: 200' Gait Assistive Device: FWW Comments/Gait Description Normal gait pattern, slower pace, began walking without walker but felt unsteady so walker was used, required rest breaks after feeling SOB. Balance Sitting Static: Normal Sitting Dynamic: Normal Standing Static: Normal Standing Dynamic: Normal Assessment/Needs Patient able to perform bed mobility with minimal assistance, requiring some help to fully sit up in the bed, stating that she felt "stuck to it." Patient stood independently. Patient ambulated 200' on 3L and with FWW after feel unsteady without AD initially. Patient required breaks during ambulation to recover breath. Upon return to room, patient noted SOB and O2 sats measured at 95%. Patient sat in recliner with O2 connected. Rehab Potential: Fair PT Physical Chemistry Professor Goals Physical Chemistry Professor Goals PT Assisted Goals Time Frame: Aug 10, 2019 Sit to Lying (QC): 6 Lying-Sitting on Side/Bed(QC): 6 Sit to Stand (QC): 6 Roll Left to Right (QC): 6 Chair/Fre-kr-Wgpve Xfer(QC): 6 Car Transfer (QC): 6 Does the Patient Walk: Yes Distance: 400' Walk 10 feet (QC): 6 Walk 10ft-Uneven Surface(QC): 6 Walk 50ft with 2 Turns (QC): 6 Walk 150 ft (QC): 6 Gait Assistive Device: None PT Plan Problem List Problem List: Activity Tolerance, Functional Strength, Safety, Balance, Gait, Transfer, Bed Mobility Treatment/Plan Treatment Plan: Continue Plan of Care Treatment Plan: Bed Mobility, Education, Functional Activity Niru, Functional Strength, Gait, Safety, Therapeutic Exercise, Transfers Treatment Duration: Aug 10, 2019 Frequency: 6 times per week Estimated Hrs Per Day: .25 hour per day Patient and/or Family Agrees t: Yes Time/GCodes Time In: 1038 Time Out: 1058 Total Billed Treatment Time: 20 Total Billed Treatment 1 visit EVLowC 20min ALONA SCHULER PT Aug 03, 2019 11:34 POS
[2019-08-03 12:00] VITALS: BP 116/64
--- NOTE | 2019-08-03 12:38 | Progress Note ---
Subjective Date Seen by a Provider: Aug 03, 2019 Time Seen by a Provider: 12:37 Subjective/Events-last exam Fwup Acute on Chronic Respiratory Failure, Pneumonia with Sepsis, Acute NSTEMI, COPD with acute exacerbation. Feeling better. Wants to go home. Focused Exam Lactate Level 08/01/19 06:55: Lactic Acid Level 1.20 Objective Exam Vital Signs Date Time Temp Pulse Resp B/P (MAP) Pulse Ox O2 Delivery O2 Flow Rate FiO2 08/03/19 11:19 92 Nasal Cannula 3.00 08/03/19 09:00 96 Nasal Cannula 3.00 08/03/19 08:00 37.1 74 17 133/74 (93) 94 Nasal Cannula 3.00 08/03/19 07:13 94 Nasal Cannula 4.00 08/03/19 07:00 75 08/03/19 04:00 36.5 74 17 110/71 (84) 94 Nasal Cannula 4.00 08/03/19 01:46 93 Nasal Cannula 4.00 08/03/19 01:00 70 08/02/19 23:59 36.2 76 20 112/71 (85) 96 Nasal Cannula 4.00 08/02/19 21:52 92 Nasal Cannula 4.00 08/02/19 20:00 96 Nasal Cannula 2.00 08/02/19 20:00 36.1 92 20 128/76 (93) 94 Nasal Cannula 3.50 08/02/19 19:00 80 08/02/19 18:12 92 Nasal Cannula 4.00 08/02/19 16:59 36.8 77 22 107/68 (81) 94 Nasal Cannula 3.50 08/02/19 16:00 96 Nasal Cannula 2.00 08/02/19 15:01 36.4 83 20 103/60 (74) 92 Nasal Cannula 4.00 08/02/19 14:43 92 Nasal Cannula 4.00 08/02/19 13:00 87 I & O 08/03/19 07:00 Intake Total 2050 ml Output Total 4575 ml Balance -2525 ml Capillary Refill : Less Than 3 Seconds General Appearance: No Apparent Distress Neck: Supple Respiratory: Lungs Clear, Decreased Breath Sounds Cardiovascular: Regular Rate, Rhythm, Systolic Murmur Gastrointestinal: normal bowel sounds, non tender, soft Extremity: Non Tender, No Calf Tenderness, No Pedal Edema, Other (SCDs in p lace) Neurologic/Psychiatric: Alert, Oriented x3 Skin: Warm/Dry Results Lab Laboratory Tests 08/02/19 12:50: Glucometer 157H 08/02/19 17:04: Glucometer 122H 08/02/19 22:22: Glucometer 109 08/03/19 03:15: White Blood Count 9.7, Red Blood Count 5.35, Hemoglobin 13.7, Hematocrit 44, Mean Corpuscular Volume 82, Mean Corpuscular Hemoglobin 26, Mean Corpuscular Hemoglobin Concent 31L, Red Cell Distribution Width 18.0H, Platelet Count 230, Mean Platelet Volume 10.3, Neutrophils (%) (Auto) 60, Lymphocytes (%) (Auto) 30, Monocytes (%) (Auto) 9, Eosinophils (%) (Auto) 1, Basophils (%) (Auto) 0, Neutrophils # (Auto) 5.8, Lymphocytes # (Auto) 2.9, Monocytes # (Auto) 0.9, Eosinophils # (Auto) 0.1, Basophils # (Auto) 0.0, Sodium Level 136, Potassium [place] 3.4L, Chloride Level 93L, Carbon Dioxide Level 31, Anion Gap 12, Blood Urea Nitrogen 20H, Creatinine 0.82, Estimat Glomerular Filtration Rate > 60, BUN/Creatinine Ratio 24, Glucose Level 128H, Calcium Level 8.9, Phosphorus Level 4.1, Magnesium Level 1.9 08/03/19 10:59: Glucometer 155H Microbiology 08/01/19 Blood Culture - Preliminary, Resulted No growth 08/01/19 Influenza Types A,B Antigen (SUMAN) - Final, Complete Assessment/Plan Assessment/Plan Assess & Plan/Chief Complaint 1. Acute on Chronic Respiratory Failure--Has not been using her home CPAP since she started oxygen 2. Pneumonia with Sepsis--on Rocephin/Zithromax 3. Acute NSTEMI--S/P cardiac cath 4. COPD with acute exacerbation--on routine SVNS 5. DM II--on accuchecks with SSI 6. Hypertension--stable Clinical Quality Measures DVT/VTE Risk/Contraindication: Risk Factor Score Per Nursin RFS Level Per Nursing on Admit: 4+=Very High JUDITH KAUFMAN DO Aug 03, 2019 12:38 POS
--- NOTE | 2019-08-03 15:40 | NUR ---
Transferred to 424 per w/c in fair condition
--- NOTE | 2019-08-03 15:40 | NUR ---
TRANSFERRED FROM ICU TO ROOM 424. ALERT AND COOPERATIVE. 1 + EDEMA NOTED IN LOWER EXT. WITH MUCH DRYNESS NOTED TO LOWER EXT. SALINE LOCK TO LEFT F/A OUT. SALINE LOCK RESTARTED IN RIGHT F/A WITH # 24 INSYTE. DEBRA. WELL , TELEMETRY ON. DENIES CHEST PAIN. SKIN W/D. COLOR PALE. O2 CONT AT 3 L PER MIN. PER N/C.
[2019-08-03 15:56] VITALS: BP 140/85
--- NOTE | 2019-08-03 17:45 | NUR ---
TOOK SHOWER. DEBRA. POORLY WITH SOA AND HEART RATE UP TO 130. DENIES HEART PALPITATIONS. C/O OF FEELING TIRED. ENCOURAGED PT. TO RELAX.
--- NOTE | 2019-08-03 18:15 | NUR ---
HEART RATE TO 106. DENIES DISCOMFORT.
[2019-08-03 19:37] VITALS: BP 131/84
[2019-08-03] MEDS ORDERED: CARVEDILOL 6.25 MG (COREG) TAB PO SCH (21:00)
[2019-08-03] MEDS: CARVEDILOL 12.5 MG (COREG) TABLET PO SCH (21:12)
[2019-08-03 23:55] VITALS: BP 101/68
[2019-08-04 04:47] VITALS: BP 136/74
[2019-08-04 05:27] LABS: BASOPHILS # (AUTO) 0.1 10^3/uL (0.0-0.1); BASOPHILS % (AUTO) 1 % (0-10); EOSINOPHILS # (AUTO) 0.2 10^3/uL (0.0-0.3); EOSINOPHILS % (AUTO) 2 % (0-10); HEMATOCRIT 48 % (35-52); LYMPHOCYTES # (AUTO) 3.1 X 10^3 (1.0-4.0); LYMPHOCYTES % (AUTO) 33 % (12-44); MEAN CORPUSCULAR HEMOGLOBIN 26 PG (25-34); MEAN CORPUSCULAR HGB CONC 31 G/DL (32-36); MEAN CORPUSCULAR VOLUME 83 FL (80-99); MEAN PLATELET VOLUME 10.6 FL (7.4-10.4); MONOCYTES # (AUTO) 1.1 X 10^3 (0.0-1.0); MONOCYTES % (AUTO) 12 % (0-12); NEUTROPHILS # (AUTO) 4.8 X 10^3 (1.8-7.8); NEUTROPHILS % (AUTO) 52 % (42-75); PLATELET COUNT 249 10^3/uL (130-400); RED CELL DISTRIBUTION WIDTH 18.6 % (10.0-14.5); WHITE BLOOD COUNT 9.2 10^3/uL (4.3-11.0)
[2019-08-04 05:54] LABS: BUN/CREATININE RATIO 23; CALCIUM 9.2 MG/DL (8.5-10.1); CARBON DIOXIDE 29 MMOL/L (21-32); CHLORIDE 95 MMOL/L (98-107); CREATININE SERUM 0.83 MG/DL (0.60-1.30); GFR ESTIMATED > 60; GLUCOSE 154 MG/DL (70-105); MAGNESIUM 1.9 MG/DL (1.6-2.4); PHOSPHORUS 4.3 MG/DL (2.3-4.7); SODIUM 137 MMOL/L (135-145)
--- NOTE | 2019-08-04 05:57 | Diagnostic Imaging Report ---
EXAMINATION: Portable erect AP chest at 4:40 AM INDICATION: Respiratory failure The cardiomegaly and the elevated right hemidiaphragm seen on the prior exam of 08/03/2019 are again evident and no different. The lungs, where visualized, are clear. There is no sign of failure, pneumonia or for a significant pleural effusion. The mediastinum is not widened. The osseous structures are intact. IMPRESSION: Stable chest. There has been no adverse change since the prior exam. Dictated by: Dictated on workstation # [id number]
[2019-08-04] MEDS ORDERED: WATER (STERILE) FOR INJECTION 20 ML ONE (06:02)
[2019-08-04] MEDS ORDERED: cefTRIAXone 2 GM IV (ROCEPHIN) VIAL ONE (06:02)
[2019-08-04] MEDS: inSUlin ASPART (NovoLOG) 1 UNIT/0.01 ML (CHARGE PER UNIT) SC SCH ×2 (06:13→11:23)
[2019-08-04] MEDS: cefTRIAXone FOR IV USE 2,000 MG in WATER (STERILE) FOR INJECTION 20 ML IV SCH (06:14)
[2019-08-04] MEDS: RT-ADVAIR HFA 115/21 MCG PER PUFF IH SCH (07:48)
[2019-08-04] MEDS: RT-ALBUTEROL/IPRATROPIUM 3 ML (DUONEB) VIAL INH SCH ×3 (07:48→11:12)
[2019-08-04 08:00] VITALS: BP 121/70
[2019-08-04] MEDS: CARVEDILOL 12.5 MG (COREG) TABLET PO SCH (08:16)
[2019-08-04] MEDS: FUROSEMIDE 40 MG (LASIX) TAB PO SCH (08:16)
[2019-08-04] MEDS: GABAPENTIN 400 MG (NEURONTIN) CAP PO SCH (08:16)
[2019-08-04] MEDS: PANTOPRAZOLE 40 MG (PROTONIX) TAB PO SCH (08:16)
[2019-08-04] MEDS: AZITHROMYCIN 250 MG TAB (ZITHROMAX) PO SCH (08:16)
[2019-08-04] MEDS: CLOPIDOGREL 75 MG (PLAVIX) TABLET PO SCH (08:16)
[2019-08-04] MEDS: DULoxetine 30 MG (CYMBALTA) CAP PO SCH (08:17)
[2019-08-04] MEDS: DOCUSATE SODIUM 100 MG (COLACE) CAP PO SCH (08:17)
[2019-08-04] MEDS: ALPRAZolam 0.25 MG (XANAX) TAB PO SCH ×2 (08:17→13:13)
[2019-08-04] MEDS: RAMIPRIL 5 MG (ALTACE) CAP PO SCH (08:17)
[2019-08-04] MEDS: SENNOSIDES 8.6 MG (SENOKOT) TAB PO SCH (08:17)
[2019-08-04] MEDS: SPIRONOLACTONE 25 MG (ALDACTONE) TAB PO SCH (08:19)
[2019-08-04] MEDS ORDERED: ENOXAPARIN 40 MG/0.4 ML (LOVENOX) SYR SC SCH (09:30)
[2019-08-04] MEDS ORDERED: RAMI5CAP65 PO (10:24)
[2019-08-04] MEDS ORDERED: FURO40TA4 PO (10:24)
[2019-08-04] MEDS ORDERED: CLOP75TA28 PO (10:24)
[2019-08-04] MEDS ORDERED: ATOR40TA PO (10:24)
--- NOTE | 2019-08-04 10:29 | Progress Note - Cardiology ---
Cardiology SOAP Progress Note Subjective: Sitting up in bed. Feels breathing is better today. No c/o CP, palpitations, syncope or near syncope. Wants to go home Objective: I&O/Vital Signs 08/04/19 08/04/19 08/04/19 08/04/19 01:00 04:47 06:55 07:49 Temp 36.6 Pulse 85 97 91 Resp 18 B/P (MAP) 136/74 (94) Pulse Ox 94 92 O2 Delivery Nasal Cannula Nasal Cannula O2 Flow Rate 3.50 3.00 08/04/19 08/04/19 08/04/19 08:00 09:26 11:13 Temp 36.7 Pulse 102 Resp 24 B/P (MAP) 121/70 (87) Pulse Ox 94 98 O2 Delivery Nasal Cannula Nasal Cannula Nasal Cannula O2 Flow Rate 3.50 3.00 3.00 08/04/19 00:00 Intake Total 1260 ml Output Total 2200 ml Balance -940 ml Weight (Pounds): 258 Weight (Ounces): 0.0 Weight (Calculated Kilograms): 117.405705 Constitutional: AAO x 3, well-developed, well-nourished Respiratory: No accessory muscle use; crackles (coarse basal crackles), other (fair to good bilateral air entry) Cardiovascular: regular rate-rhythm, S1 and S2, systolic murmur (soft VALENTINE at card base) Gastrointestional: No tender; soft; No guarding, No rebound; audible bowel sounds Extremities: swelling (mild to mod, pitting and nonpitting edema of the legs); No clubbing, No cyanosis Neurologic/Psychiatric: oriented x 3, other (moves all limbs equally) Skin: No rash on exposed areas, No ulcerations on exposed areas Results/Procedures: Labs Laboratory Tests 08/03/19 16:14: Glucometer 123H 08/03/19 20:53: Glucometer 128H 08/04/19 05:05: White Blood Count 9.2, Red Blood Count 5.82, Hemoglobin 15.0, Hematocrit 48, Mean Corpuscular Volume 83, Mean Corpuscular Hemoglobin 26, Mean Corpuscular Hemoglobin Concent 31L, Red Cell Distribution Width 18.6H, Platelet Count 249, Mean Platelet Volume 10.6H, Neutrophils (%) (Auto) 52, Lymphocytes (%) (Auto) 33, Monocytes (%) (Auto) 12, Eosinophils (%) (Auto) 2, Basophils (%) (Auto) 1, Neutrophils # (Auto) 4.8, Lymphocytes # (Auto) 3.1, Monocytes # (Auto) 1.1H, Eosinophils # (Auto) 0.2, Basophils # (Auto) 0.1, Sodium Level 137, Potassium Level 4.0, Chloride Level 95L, Carbon Dioxide Level 29, Anion Gap 13, Blood Urea Nitrogen 19H, Creatinine 0.83, Estimat Glomerular Filtration Rate > 60, BUN/Creatinine Ratio 23, Glucose Level 154H, Calcium Level 9.2, Phosphorus Level 4.3, Magnesium Level 1.9 08/04/19 10:52: Glucometer 157H Microbiology 08/01/19 Blood Culture - Preliminary, Resulted No growth 08/01/19 Influenza Types A,B Antigen (SUMAN) - Final, Complete A/P: Assessment: Ac NSTEMI on 08/01/19 Card cath on 08/01/19: Angiographically mild coronary artery disease; cardi omyopathy, probably ischemic, with anteroapical and diaphragmatic hypokinesis to akinesis; LVEF 25%; elevated LVEDP Ischemic cardiomyopathy with acute systolic CHF Echo of 08/03/19: LVEF 40-45%, apical hypokinesis, grade 1 diastolic dysfunction DM II Chronic tobacco use (smokes cigarettes) Hypertension H/o hyperlipidemia Obesity with obesity-hypoventilation and IVIS Plan: * Advised compliance with CPAP and f/u with pulmonary services * Continue bb and CHRIS-inhib and DAPT and statins * OK to discharge home to day from a cardiac stand point with out pt f/u and lab Physician Assessment Physician Assessment No cp or palp or syncope Shortness of breath now at its usual baseline She wishes to go home Lungs: good bilat air entry, coarse basal crackles Cor: reg Ext: no c/c; chronic leg edema that is moderate and associated with changes of stasis dermatitis A&R * As documented in our note above that I updated (italics) and as noted below * I discussed with in detail her CV issues and our treatment plan. Questions answered * We advised compliance with meds and close outpt f/u HAN MAX BUCKET PUSHER Aug 04, 2019 10:29 JU WITT MD FACP [facility] Aug 04, 2019 12:19 POS
--- NOTE | 2019-08-04 10:54 | Occupational Therapy Eval ---
OT Evaluation-General/PLF Medical Diagnosis Admission Date Aug 01, 2019 at 04:00 Medical Diagnosis: possible pnuemonia, uncontrolled DM Onset Date: Aug 01, 2019 Therapy Diagnosis Therapy Diagnosis: debility Height/Weight Height (Feet): 4 Height (Inches): 0.00 Weight (Pounds): 258 Weight (Ounces): 0.0 Precautions Precautions/Isolations: Fall Prevention, Standard Precautions Safety Interventions: None Referral Physician: Laverne Medical History Pertinent Medical History: Arthritis, COPD, DM, HTN Additional Medical History GERD, hiatal hernia, DDD, fibromyalgia, sleep apnea, chronic edema, high cholesterol Social History Home: Single Level Current Living Status: Alone Entry Into Home: Level Entry ADL-Prior Level of Function SCALE: Activities may be completed with or without assistive devices. 9-Zvofjrnyiq-lqjshmu completes the activity by him/herself with no assistance from a helper. 5-Set-up or Clean-up Assistance-helper sets up or cleans up; patient completes activity. [place] assists only prior to or following the activity. 4-Supervision or Touching Assistance-helper provides verbal cues and/or touching/steadying and/or contact guard assistance as patient completes activity. Assistance may be provided throughout the activity or intermittently. 3-Partial/Moderate Assistance-helper does LESS THAN HALF the effort. [place] lifts, holds or supports trunk or limbs, but provides less than half the effort. 2-Substantial/Maximal Assistance-helper does MORE THAN HALF the effort. [place] lifts or holds trunk or limbs and provides more than half the effort. 9-Ilsyvcxbe-lvfwyd does ALL the effort. Patient does none of the effort to complete the activity. Or, the assistance of 2 or more helpers is required for the patient to complete the activity. If activity was not attempted, code reason: 7-Patient Refused. 9-Not Applicable-not attempted and the patient did not perform the activity before the current illness, exacerbation or injury. 10-Not Attempted due to Environmental Limitations-(lack of equipment, weather restraints, etc.). 88-Not Attempted due to Medical Conditions or Safety Concerns. ADL PLOF Comments Pt reports being independent with self care and mobility prior to admission. Does not use any AD for mobility, but has FWW or cane available if needed. Pt has a business development assistant every two weeks Self Care: Independent Functional Cognition: Needed Some Help DME/Equipment: Bath Chair, Grab Bars, Tub/Shower Drive Self: No OT Current Status Subjective Pt sitting EOB, agrees to therapy. Pt has no c/o pain. Mental Status/Objective Patient Orientation: Person, Place, Situation Attachments: Oxygen Current Glasses/Contacts: Yes Dentures/Partials: Yes Hand Dominance: Right Upper Extremity ROM grossly WFL Upper Extremity Coordination Intact Upper Extremity Sensation Intact per pt report Upper Extremity Strength grossly 4/5 ADL-Treatment ADL-Current Pt participated in UE assessment while seated. Pt reports feeding herself witho ut assist. States she had a shower last night and was able to complete after set up. Pt donned slip on shoes independently, states she does not normally wear socks at home. Sit to stand without assist. Pt demonstrated ability to complete transfer safely, no LOB noted. Pt states she has been getting up to restroom without assist. Education provided regarding home safety. Pt states u nderstanding and has no questions at this time. Pt sitting EOB with needs met after session. Eating (QC): 6 (per pt report) Shower/Bathe Self (QC): 5 Toilet Transfer (QC): 6 Education OT Patient Education: Rehab process Teaching Recipient: Patient Teaching Methods: Discussion Response to Teaching: Verbalize Understanding OT Short Term Goals Short Term Goals 1=Demonstrate adherence to instructed precautions during ADL tasks. 2=Patient will verbalize/demonstrate understanding of assistive devices/modifications for ADL. 3=Patient will improve strength/tolerance for activity to enable patient to perform ADL's. OT Front Office Manager Goals Front Office Manager Goals Time Frame: Aug 11, 2019 Shower/Bathe Self (QC): 6 Lower Body Dressing (QC): 6 Toileting Hygiene (QC): 6 Toilet/Commode Transfer (QC): 6 Additional Goals: 2-Verbalize Understanding, 3-ImproveStrength/Niru 1=Demonstrate adherence to instructed precautions during ADL tasks. 2=Patient will verbalize/demonstrate understanding of assistive devices/modifications for ADL. 3=Patient will improve strength/tolerance for activity to enable patient to perform ADL's. OT Education/Plan Problem List/Assessment Pt to benefit from skilled OT intervention while hospitalized to promote increased ADL performance, activity tolerance, mobility, and safety. Discharge Recommendations Plan/Recommendations: Continue POC Treatment Plan/Plan of Care Treatment,Training & Education: Yes Patient would benefit from OT for education, treatment and training to promote independence in ADL's, mobility, safety and/or upper extremity function for ADL's. Plan of Care: ADL Retraining, Functional Mobility, UE Funct Exercise/Act Treatment Duration: Aug 11, 2019 Frequency: 5 times per week Estimated Hrs Per Day: .25 hour per day Rehab Potential: Fair Time/GCodes Start Time: 10:35 Stop Time: 10:46 Total Time Billed (hr/min): 11 Billed Treatment Time 1 visit, TEENA(11minutes) ESEQUIEL MATAMOROS OT Aug 04, 2019 10:54 POS
--- NOTE | 2019-08-04 11:37 | Pulmonary Progress Note ---
Subjective Time Seen by a Provider: 11:37 Subjective/Events-last exam PT wants to go home. Sepsis Event Evaluation Height, Weight, BMI Height: 4'0.00" Weight: 258lbs. 0.0oz. 117.388968ss; 38.00 BMI Method:Stated Exam Exam Vital Signs Date Time Temp Pulse Resp B/P (MAP) Pulse Ox O2 Delivery O2 Flow Rate FiO2 08/04/19 11:13 98 Nasal Cannula 3.00 08/04/19 09:26 Nasal Cannula 3.00 08/04/19 08:00 36.7 102 24 121/70 (87) 94 Nasal Cannula 3.50 08/04/19 07:49 92 Nasal Cannula 3.00 08/04/19 06:55 91 08/04/19 04:47 36.6 97 18 136/74 (94) 94 Nasal Cannula 3.50 08/04/19 01:00 85 08/03/19 23:55 36.3 89 18 101/68 (79) 94 Nasal Cannula 3.50 08/03/19 22:09 91 Nasal Cannula 3.00 08/03/19 21:00 Nasal Cannula 3.00 08/03/19 19:37 36.9 99 18 131/84 (100) 93 Nasal Cannula 3.00 08/03/19 19:19 92 Nasal Cannula 3.00 08/03/19 19:00 102 08/03/19 15:56 112 20 140/85 (103) 95 Nasal Cannula 3.00 08/03/19 15:18 92 Nasal Cannula 3.00 08/03/19 13:00 97 08/03/19 12:00 37.0 95 24 116/64 (81) 94 Nasal Cannula 3.00 I & O 08/04/19 07:00 Intake Total 1630 ml Output Total 2200 ml Balance -570 ml Height & Weight Height: 4'0.00" Weight: 258lbs. 0.0oz. 117.357618vr; 38.00 BMI Method:Stated General Appearance: No Apparent Distress HEENT: PERRL/EOMI, Pharynx Normal Neck: Supple Respiratory: Lungs Clear, Decreased Breath Sounds Cardiovascular: Regular Rate, Rhythm, Systolic Murmur Capillary Refill: Less Than 3 Seconds Gastrointestinal: normal bowel sounds, non tender, soft Extremity: Non Tender, No Calf Tenderness, No Pedal Edema, Other (SCDs in place) Neurologic/Psychiatric: Alert, Oriented x3 Skin: Warm/Dry Results Lab Laboratory Tests 08/03/19 03:15 08/04/19 05:05 Assessment/Plan Assessment/Plan Acute on chronic respiratory failure - much improved -ABG C02 is 70 -Pt would benefit from vent to mask -Pt currently lives at home alone Dementia -monitor Pneumonia Rocephin -- change to OMnicef x 4-5 more days and azithromycin COPDAE -SVNs NSTEMI s/p cath -Cardiology following Morbid Obesity with IVIS -Will have her f/u with me as out pt and obtain CPAP down load and overnight oximetry. tobacco use. Ok from pulmonary standpoint for discharge. Will f/u with pt in 2-3 wks. ALICIA MCKEON DO Aug 04, 2019 11:37 POS
[2019-08-04 12:00] VITALS: BP 114/76
[2019-08-04] MEDS ORDERED: POTA20TA15 PO (12:36)
[2019-08-04] MEDS ORDERED: AZIT250T12 PO (12:36)
[2019-08-04] MEDS ORDERED: CEFD300C3 PO (12:36)
[2019-08-04 15:40] VITALS: BP 114/76
--- NOTE | 2019-08-04 18:38 | Discharge Summary ---
Diagnosis/Chief Complaint Date of Admission Aug 01, 2019 at 04:00 Date of Discharge Aug 04, 2019 at 15:41 Discharge Diagnosis 1. Acute on Chronic Respiratory Failure--stable on oxygen 2. Bilateral Pneumonia with Sepsis--improved 3. COPD with acute exacerbation--improving 4. Acute NonSTEMI with decreased ejection fraction--medical management 5. Diabetes mellitus--stable 6. Obstructive Sleep Apnea--has not been using CPAP 7. Hypertension--stable 8. GERD--stable 9. Anxiety--stable 10. Hyperlipidemia--atorvastatin dose increased Discharge Summary Hospital Course Was the Problem List Reviewed?: Yes Hospital Course This is a 68 year old female with a know history of oxygen dependant COPD who presented to the emergency room with worsening shortness of air. She was found to be in acute respiratory failure and was placed on BIPAP. She was also felt to be septic with bilateral pneumonia. She was also found to have an elevated troponin with apparent non STEMI. She was initially admitted to the ICU and placed on the sepsis protocol. She was treated with rocephin and zithromax. She was taken for cardiac catheterization but non severe blockages were found so it was decided on medical management. She was transferred to the cardiac stepdown floor the following day. She was able to be weaned off the BIPAP to oxygen via a nasal cannula. Her respiratory status improved and she was able to be transferred to the medical floor with telemetry on the 3rd hospital day. Her WBC count decreased from 15.5 on admit to 9.2 by discharge. She was switched from Rocephin to omnicef the day prior to discharge and had no worsening of her respiratory symptoms or worsening of her WBC count. It was decided she could be discharged home on oral antibiotics and continue with her home oxygen and home nebulizers and follow up with me in 1 week. Labs Laboratory Tests 08/01/19 20:02: Glucometer 133H 08/02/19 03:10: White Blood Count 12.8H, Red Cell Distribution Width 18.1H, Mean Platelet Volume 10.7H, Neutrophils # (Auto) 9.2H, Monocytes # (Auto) 1.4H, Anion Gap 15H, Glucose Level 109H, Troponin I 2.233*H, Total Protein 5.8L 08/02/19 12:50: Glucometer 157H 08/02/19 17:04: Glucometer 122H 08/02/19 22:22: 08/03/19 03:15: Mean Corpuscular Hemoglobin Concent 31L, Red Cell Distribution Width 18.0H, Potassium Level 3.4L, Chloride Level 93L, Blood Urea Nitrogen 20H, Glucose Level 128H 08/03/19 10:59: Glucometer 155H 08/03/19 16:14: Glucometer 123H 08/03/19 20:53: Glucometer 128H 08/04/19 05:05: Mean Corpuscular Hemoglobin Concent 31L, Red Cell Distribution Width 18.6H, Mean Platelet Volume 10.6H, Monocytes # (Auto) 1.1H, Chloride Level 95L, Blood Urea Nitrogen 19H, Glucose Level 154H 08/04/19 10:52: Glucometer 157H Procedures None. Discharge Physical Examination Allergies: Coded Allergies: No Known Drug Allergies (Verified , 05/08/09) Vitals & I&Os Vital Signs Date Time Temp Pulse Resp B/P (MAP) Pulse Ox O2 Delivery O2 Flow Rate FiO2 08/04/19 15:40 37.0 113 22 114/76 95 Nasal Cannula 3.50 General Appearance: Alert, Oriented X3, Cooperative, No Acute Distress Respiratory: Clear to Auscultation Cardiovascular: Regular Rate Abdominal: Normal Bowel Sounds, Soft, No Tenderness Extremities: Other (chronic brawny edema of LEs) Psych/Mental Status: Mental Status NL, Mood NL Discharge Home Medications Reviewed and agree with Discharge Medication list on patient's Discharge Instruction sheet Instructions to Patient/Family Please see electronic discharge instructions given to patient. Clinical Quality Measures DVT/VTE Risk/Contraindication: Risk Factor Score Per Nursin RFS Level Per Nursing on Admit: 4+=Very High JUDITH KAUFMAN DO Aug 04, 2019 18:38 POS
[2019-08-04] MEDS ORDERED: CEFDINIR 300 MG (OMNICEF) CAP PO SCH (21:00)
== END 2019-08-04 15:41 | disposition home or self-care (01) | DRG 871 ==
LOC: EDUNIT# 01:52 → ER 01:53 → ICU 04:00 → CSD 08-02 10:34 → 4TH 08-03 15:15
PROVIDERS: ADMIT Internal Medicine; ATTEND Family Medicine
PROC: 4A023N7 Measurement of Cardiac Sampling and Pressure, Left Heart, Percutaneous Approach (ICD-10-PCS; principal; 2019-08-01)
PROC: B2111ZZ Fluoroscopy of Multiple Coronary Arteries using Low Osmolar Contrast (ICD-10-PCS; 2019-08-01)
PROC: B2151ZZ Fluoroscopy of Left Heart using Low Osmolar Contrast (ICD-10-PCS; 2019-08-01)
DX: A41.9 Sepsis, unspecified organism (principal); J96.21 Acute and chronic respiratory failure with hypoxia; J96.22 Acute and chronic respiratory failure with hypercapnia; J18.9 Pneumonia, unspecified organism; J44.0 Chronic obstructive pulmonary disease with (acute) lower respiratory infection; J44.1 Chronic obstructive pulmonary disease with (acute) exacerbation; I21.4 Non-ST elevation (NSTEMI) myocardial infarction; I25.5 Ischemic cardiomyopathy; I11.0 Hypertensive heart disease with heart failure; I50.21 Acute systolic (congestive) heart failure; E66.2 Morbid (severe) obesity with alveolar hypoventilation; Z68.45 Body mass index [BMI] 70 or greater, adult; B37.2 Candidiasis of skin and nail; E11.311 Type 2 diabetes mellitus with unspecified diabetic retinopathy with macular edema; E11.65 Type 2 diabetes mellitus with hyperglycemia; F41.9 Anxiety disorder, unspecified; F32.9 Major depressive disorder, single episode, unspecified; F17.210 Nicotine dependence, cigarettes, uncomplicated; I25.10 Atherosclerotic heart disease of native coronary artery without angina pectoris; F03.90 Unspecified dementia, unspecified severity, without behavioral disturbance, psychotic disturbance, mood disturbance, and anxiety; E78.00 Pure hypercholesterolemia, unspecified; K21.9 Gastro-esophageal reflux disease without esophagitis; K44.9 Diaphragmatic hernia without obstruction or gangrene; M79.7 Fibromyalgia; E03.9 Hypothyroidism, unspecified
CPT/HCPCS: 36415; 51702; 71045; 80048; 80053; 81000; 82550; 82553; 82805; 82962; 83605; 83690; 83735; 83880; 84100; 84145; 84443; 84484; 85007; 85025; 85027; 85610; 85730; 87040; 87804; 93005; 93041; 93306; 93458; 94640; 94660; 94760

== ENCOUNTER → 2019-11-10 | Outpatient (CLI) | payer MEDICARE ==
[~2019-11-10] MED LIST changes: +ATOR40TA PO; +AZIT250T12 PO; +CLOP75TA28 PO; +LEVO137T2 PO; +LIRA0.6P3 SC; +PEDI18TA2 PO; +RAMI5CAP65 PO; +SITA1TAB6 PO
== END ==
LOC: CARD 13:40
PROVIDERS: ATTEND Nurse Practitioner Family
DX: I25.5 Ischemic cardiomyopathy (principal)
CPT/HCPCS: 93306

== ENCOUNTER → 2021-02-08 | Outpatient (CLI) | payer MEDICARE ==
[~2021-02-08] MED LIST changes: +ACHYD1T PO; +ASPI-1238 PO; -ASPI-983 PO; -HYDR-3820 PO; -PANT40TA3 PO; +PANT40TA52 PO
--- NOTE | 2021-02-08 13:07 | Diagnostic Imaging Report ---
PROCEDURE: US Thyroid. TECHNIQUE: Multiple Real-time grayscale images were obtained of the thyroid in various projections. INDICATION: Abnormal thyroid labs. FINDINGS: The right lobe of the thyroid measures 2.3 x 0.9 x 0.8 cm and the left lobe measures 2.0 x 0.7 x 0.6 cm. The isthmus is 3 mm in thickness. No discrete thyroid mass is detected. IMPRESSION: Unremarkable thyroid ultrasound. Dictated by: Dictated on workstation # [id number]
== END ==
LOC: RAD 09:55
PROVIDERS: ATTEND Family Medicine
DX: R94.6 Abnormal results of thyroid function studies (principal)
CPT/HCPCS: 76536

== ENCOUNTER → 2022-11-26 | Outpatient (RCR) | payer MEDICARE ==
[2022-11-19] MEDS: IRON SUCROSE 200 MG/10 ML (VENOFER) VIAL IV SCH (13:42)
[2022-11-19 14:44] VITALS: BP 121/57
[2022-11-21] MEDS: IRON SUCROSE 200 MG/10 ML (VENOFER) VIAL IV SCH (12:55)
[2022-11-21 12:58] VITALS: BP 116/52
[~2022-11-26] VITALS: Ht 152.4 cm; Wt 82.0 kg
[~2022-11-26] MED LIST changes: +ACLI400A2 INH; -ACLI400A3 INH; +ALBU8.5H6 IH; -ARIP10TA17 PO; +ARIP10TA55 PO; +ARIP20TA20 PO; +ATOR40TA70 PO; +CEPH250C PO; +CYANOCOBALAMIN INJ 1000 MCG/ML IM NR; +FLUC100T10 PO; -FLUC100T6 PO; +IRON SUCROSE 200 MG/10 ML (VENOFER) VIAL IV SCH; +LEVO125T6 PO; +METF-399 PO; -NYST15CR TP; +NYST15CR35 TP; +POTA-179 PO; -RT-ALBUINH IH
[2022-11-26 13:10] VITALS: BP 126/54
== END | disposition home or self-care (01) ==
LOC: SDC 11-19 12:51
PROVIDERS: ATTEND Family Medicine
DX: E53.8 Deficiency of other specified B group vitamins (principal); E66.1 Drug-induced obesity
CPT/HCPCS: 96365; 96372

== ENCOUNTER 2022-11-28 12:45 | Outpatient (RCR) | payer MEDICARE ==
[~2022-11-28] VITALS: Ht 152.4 cm; Wt 82.0 kg
[~2022-11-28 12:45] MED LIST changes: -CYANOCOBALAMIN INJ 1000 MCG/ML IM NR; -IRON SUCROSE 200 MG/10 ML (VENOFER) VIAL IV SCH
[2022-11-28] MEDS ORDERED: IRON SUCROSE 200 MG/10 ML (VENOFER) VIAL IV SCH (13:14)
[2022-11-28 14:00] VITALS: BP 199/77
== END 2022-12-27 | disposition home or self-care (01) ==
LOC: SDC 12:45
PROVIDERS: ATTEND Family Medicine
DX: D50.9 Iron deficiency anemia, unspecified (principal); E53.8 Deficiency of other specified B group vitamins; E66.1 Drug-induced obesity
CPT/HCPCS: 96365

== ENCOUNTER 2023-05-27 10:38 | Emergency (ER) | payer MEDICARE ==
[~2023-05-27] VITALS: Ht 149 cm; Wt 86.1 kg
[2023-05-27 11:00] LABS: BASOPHILS # (AUTO) 0.1 10^3/uL (0.0-0.1); BASOPHILS % (AUTO) 1 % (0-10); EOSINOPHILS # (AUTO) 0.1 10^3/uL (0.0-0.3); EOSINOPHILS % (AUTO) 1 % (0-10); HEMATOCRIT 49 % (35-52); HEMOGLOBIN 15.9 g/dL (11.5-16.0); LYMPHOCYTES # (AUTO) 1.3 10^3/uL (1.0-4.0); LYMPHOCYTES % (AUTO) 21 % (12-44); MEAN CORPUSCULAR HEMOGLOBIN 29 pg (25-34); MEAN CORPUSCULAR HGB CONC 32 g/dL (32-36); MEAN CORPUSCULAR VOLUME 91 fL (80-99); MEAN PLATELET VOLUME 9.7 fL (9.0-12.2); MONOCYTES # (AUTO) 0.4 10^3/uL (0.0-1.0); MONOCYTES % (AUTO) 6 % (0-12); NEUTROPHILS # (AUTO) 4.2 10^3/uL (1.8-7.8); NEUTROPHILS % (AUTO) 70 % (42-75); PLATELET COUNT 212 10^3/uL (130-400)
[2023-05-27 11:09] LABS: ALBUMIN 4.2 GM/DL (3.2-4.5); POTASSIUM 4.4 MMOL/L (3.6-5.0)
[2023-05-27 11:10] LABS: CALCIUM 9.3 MG/DL (8.5-10.1)
[2023-05-27 11:11] LABS: TOTAL PROTEIN 7.2 GM/DL (6.4-8.2)
[2023-05-27 11:13] LABS: BILIRUBIN,TOTAL 0.8 MG/DL (0.1-1.0)
[2023-05-27 11:15] LABS: CREATININE SERUM 0.64 MG/DL (0.60-1.30)
[2023-05-27 11:36] LABS: CLARITY,URINE CLEAR; COLOR,URINE YELLOW; PH,URINE 6.5 (5-9)
[2023-05-27 11:37] LABS: BACTERIA,URINE TRACE /HPF; BILIRUBIN,URINE NEGATIVE (NEGATIVE); GLUCOSE, URINE (UA) 3+ (NEGATIVE); KETONES,URINE 3+ (NEGATIVE); LEUKOCYTE ESTERASE ,URINE NEGATIVE (NEGATIVE); NITRITE,URINE NEGATIVE (NEGATIVE); PROTEIN,URINE TRACE (NEGATIVE); WBC,URINE RARE /HPF; YEAST,URINE FEW /HPF
--- NOTE | 2023-05-27 11:47 | Diagnostic Imaging Report ---
EXAMINATION: Chest, 2 views. HISTORY: Shortness of breath. Weakness. COMPARISON: 10/04/2021. FINDINGS: Stable elevated right hemidiaphragm. No focal consolidation is seen. No large pleural effusion or pneumothorax is seen. The cardiomediastinal silhouette is normal in size and contour. There is calcified aortic atherosclerotic plaque. No acute osseous abnormality is seen. IMPRESSION: No acute pleuroparenchymal process. Dictated by: Dictated on workstation # [id number]
--- NOTE | 2023-05-27 12:39 | ED General ---
General Chief Complaint: General Problems/Pain Stated Complaint: SOB Nursing Triage Note: ARRIVED VIA EMS FROM HOME WITH GENERALIZED WEAKNESS. Source of Information: Patient, EMS, Old Records Exam Limitations: No Limitations History of Present Illness Date Seen by Provider: May 27, 2023 Time Seen by Provider: 10:39 Allergies and Home Medications Allergies Coded Allergies: No Known Drug Allergies (Verified , 05/08/09) Patient Home Medication List Aspirin (Aspirin EC) 81 Mg Tablet., 81 MG PO DAILY, (Reported) Entered as Reported by: FRIDA NIXON on 07/23/17 1058 Atorvastatin Calcium (Atorvastatin Calcium) 40 Mg Tablet, 40 MG PO DAILY Prescribed by: JUDITH KAUFMAN on 10/09/21 1246 Carvedilol (Carvedilol) 12.5 Mg Tablet, 12.5 MG PO BID, (Reported) Entered as Reported by: FRIDA NIXON on 07/23/17 1049 Cephalexin (Cephalexin) 250 Mg Capsule, 250 MG PO QID Prescribed by: JUDITH KAUFMAN on 10/09/21 1246 Clopidogrel Bisulfate (Clopidogrel) 75 Mg Tablet, 75 MG PO DAILY, (Reported) Entered as Reported by: MICHELE CARMONA on 10/08/21 1325 Duloxetine HCl (Duloxetine HCl) 60 Mg Capsule., 60 MG PO DAILY Prescribed by: JUDITH KAUFMAN on 10/09/21 1246 Empagliflozin (Jardiance) 25 Mg Tablet, 25 MG PO DAILY, (Reported) Entered as Reported by: BARB VANEGAS on 12/21/17 1517 Fluconazole (Fluconazole) 100 Mg Tablet, 100 MG PO DAILY Prescribed by: JUDITH KAUFMAN on 10/09/21 1246 Gabapentin (Gabapentin) 400 Mg Capsule, 400 MG PO BID Prescribed by: JUDITH KAUFMAN on 10/09/21 1246 Levothyroxine Sodium (Levothyroxine Sodium) 125 Mcg Tablet, 125 MCG PO DAILY, (Reported) Entered as Reported by: MICHELE CARMONA on 10/08/21 0952 Magnesium Oxide (Magnesium) 400 Mg Tablet, 400 MG PO DAILY, (Reported) Entered as Reported by: MICHELE CARMONA on 10/08/21 0952 Metformin HCl (Metformin HCl) 1,000 Mg Tablet, 1,000 MG PO DAILY Prescribed by: JUDITH KAUFMAN on 10/09/21 1246 Multivitamin with Minerals (One Daily Plus Minerals) 1 Each Tablet, 1 TAB PO DAILY, (Reported) Entered as Reported by: FRIDA NIXON on 07/23/17 1058 Pantoprazole Sodium (Pantoprazole Sodium) 40 Mg Tablet.dr, 40 MG PO DAILY, (Reported) Entered as Reported by: FRIDA NIXON on 07/23/17 1049 Ramipril (Ramipril) 5 Mg Capsule, 5 MG PO DAILY, (Reported) Entered as Reported by: MICHELE CARMONA on 10/08/21 1325 Sitagliptin Phos/Metformin HCl (Janumet 50-1,000 mg Tablet) 1 Each Tablet, 1 TAB PO DAILY, (Reported) Entered as Reported by: FRIDA NIXON on 08/02/19 1014 Spironolactone (Spironolactone) 25 Mg Tablet, 25 MG PO DAILY, (Reported) Entered as Reported by: ANGIE AN on 12/20/17 1641 Past Hopdiqi-Jnporm-Obownh Hx Patient Social History Tobacco Use?: Yes Tobacco type used: Cigarettes Smoking Status: Current Everyday Smoker Substance use?: No Alcohol Use?: No Immunizations Up To Date Tetanus Booster (TDap): Unknown PED Vaccines UTD: No First/Initial COVID19 Vaccinat: MODERNA 12/17/20 Seasonal Allergies Seasonal Allergies: Yes Past Medical History Surgeries: Yes 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, Tonsillectomy, Tubal Ligation Respiratory: Yes (O2 AT 3L/NC CONTINUOUSLY) Pneumonia, Sleep Apnea, COPD Currently Using CPAP: Yes Currently Using BIPAP: No Cardiac: Yes Chronic Edema/Swelling, High Cholesterol, Hypertension Neurological: Yes (?NEUROPATHY?) Female Reproductive Disorders: Denies [employer] History: 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, Tubal Ligation, Menopausal Sexually Transmitted Disease: No HIV/AIDS: No Genitourinary: Yes Kidney Infection Gastrointestinal: Yes Gastroesophageal Reflux, Hiatal Hernia Musculoskeletal: Yes Degenerate Disk Disease, Arthritis, Fibromyalgia, Chronic Back Pain Endocrine: Yes (OBESITY) Hypothyroidsim, Diabetes, Non-Insulin dep HEENT: No Loss of Vision: Denies Hearing Impairment: Denies Cancer: No Psychosocial: Yes Anxiety, Depression Integumentary: Yes (CELLULITIS, YEAST INFECTIONS) Blood Disorders: No Adverse Reaction/Blood Tranf: No Family Medical History Diabetes mellitus 19 MOTHER FH: COPD (chronic obstructive pulmonary disease) 19 FATHER FH: heart attack 19 FATHER FH: melanoma 19 FATHER FH: stomach cancer 19 MOTHER No Pertinent Family Hx, Heart Disease, Hypertension Physical Exam Vital Signs Vital Signs - First Documented 05/27/23 10:41 Temp 36.3 Pulse 79 Resp 16 B/P (MAP) 187/88 (121) Pulse Ox 92 O2 Delivery Room Air Capillary Refill : Less Than 3 Seconds Height, Weight, BMI Height: 4'0.00" Weight: 258lbs. 0.0oz. [id number]; 38.00 BMI Method:Stated Progress/Results/Core Measures Suspected Sepsis SIRS Temperature: Pulse: 79 Respiratory Rate: 16 Laboratory Tests 05/27/23 10:52: White Blood Count 6.0 Blood Pressure 187 /88 Mean: 121 Laboratory Tests 05/27/23 10:52: Creatinine 0.64, Platelet Count 212, Total Bilirubin 0.8 Results/Orders Lab Results Laboratory Tests Test 05/27/23 10:52 05/27/23 11:20 Range/Units White Blood Count 6.0 4.3-11.0 10^3/uL Red Blood Count 5.40 H 3.80-5.11 10^6/uL Hemoglobin 15.9 11.5-16.0 g/dL Hematocrit 49 35-52 % Mean Corpuscular Volume 91 80-99 fL Mean Corpuscular Hemoglobin 29 25-34 pg Mean Corpuscular Hemoglobin Concent 32 32-36 g/dL Red Cell Distribution Width 14.9 H 10.0-14.5 % Platelet Count 212 130-400 10^3/uL Mean Platelet Volume 9.7 9.0-12.2 fL Immature Granulocyte % (Auto) 0 % Neutrophils (%) (Auto) 70 42-75 % Lymphocytes (%) (Auto) 21 12-44 % Monocytes (%) (Auto) 6 0-12 % Eosinophils (%) (Auto) 1 0-10 % Basophils (%) (Auto) 1 0-10 % Neutrophils # (Auto) 4.2 1.8-7.8 10^3/uL Lymphocytes # (Auto) 1.3 1.0-4.0 10^3/uL Monocytes # (Auto) 0.4 0.0-1.0 10^3/uL Eosinophils # (Auto) 0.1 0.0-0.3 10^3/uL Basophils # (Auto) 0.1 0.0-0.1 10^3/uL Immature Granulocyte # (Auto) 0.0 0.0-0.1 10^3/uL Sodium Level 136 135-145 MMOL/L Potassium Level 4.4 3.6-5.0 MMOL/L Chloride Level 98 98-107 MMOL/L Carbon Dioxide Level 22 21-32 MMOL/L Anion Gap 16 H 5-14 MMOL/L Blood Urea Nitrogen 7 7-18 MG/DL Creatinine 0.64 0.60-1.30 MG/DL Estimat Glomerular Filtration Rate 94 BUN/Creatinine Ratio 11 Glucose Level 131 H 70-105 MG/DL Calcium Level 9.3 8.5-10.1 MG/DL Corrected Calcium 9.1 8.5-10.1 MG/DL Magnesium Level 2.0 1.6-2.4 MG/DL Total Bilirubin 0.8 0.1-1.0 MG/DL Aspartate Amino Transf (AST/SGOT) 17 5-34 U/L Alanine Aminotransferase (ALT/SGPT) 9 0-55 U/L Alkaline Phosphatase 89 40-136 U/L B-Type Natriuretic Peptide 119.3 H <100.0 PG/ML Total Protein 7.2 6.4-8.2 GM/DL Albumin 4.2 3.2-4.5 GM/DL Thyroid Stimulating Hormone (TSH) 5.32 H 0.35-4.94 UIU/ML Free Thyroxine 1.20 0.70-1.48 NG/DL Urine Color YELLOW Urine Clarity CLEAR Urine pH 6.5 5-9 Urine Specific [place] 1.015 L 1.016-1.022 Urine Protein TRACE NEGATIVE Urine Glucose (UA) 3+ H NEGATIVE Urine Ketones 3+ H NEGATIVE Urine Nitrite NEGATIVE NEGATIVE Urine Bilirubin NEGATIVE NEGATIVE Urine Urobilinogen 0.2 < = 1.0 MG/DL Urine Leukocyte Esterase NEGATIVE NEGATIVE Urine RBC (Auto) NEGATIVE NEGATIVE Urine RBC NONE /HPF Urine WBC RARE /HPF Urine Squamous Epithelial Cells 2-5 /HPF Urine Crystals NONE /LPF Urine Bacteria TRACE /HPF Urine Casts NONE /LPF Urine Mucus NEGATIVE /LPF Urine Yeast FEW H /HPF Urine Culture Indicated NO My Orders Orders - AILYN AUSTIN MD Cbc With Automated Diff (05/27/23 10:54) Comprehensive Metabolic Panel (05/27/23 10:54) Magnesium (05/27/23 10:54) Ua Culture If Indicated (05/27/23 10:54) Ed Iv/Invasive Line Start (05/27/23 10:54) Monitor-Rhythm Ecg Trace Only (05/27/23 10:54) Thyroid Stimulating Hormone (05/27/23 11:26) Free T4 (Free Thyroxine) (05/27/23 11:26) Bnp [place] (05/27/23 11:30) Chest Pa/Lat (2 View) (05/27/23 11:30) Vital Signs/I&O 05/27/23 10:41 Temp 36.3 Pulse 79 Resp 16 B/P (MAP) 187/88 (121) Pulse Ox 92 O2 Delivery Room Air Capillary Refill : Less Than 3 Seconds Blood Pressure Mean: 121 Progress Note : Time: 13:07 Progress Note Work-up was essentially unremarkable and symptoms of weakness, lightheadedness, and dyspnea resolved without any particular treatment. Diagnostic Imaging Diagonstic Imaging: Xray Plain Films/CT/US/NM/MRI: chest Comments NAME: JOHN GUERRERO MED REC#: [id number] PT STATUS: REG ER : 1950 PHYSICIAN: AILYN AUSTIN MD ADMIT DATE: 05/27/23/ER Signed Date of Exam:05/27/23 CHEST PA/LAT (2 VIEW) EXAMINATION: Chest, 2 views. HISTORY: Shortness of breath. Weakness. COMPARISON: 10/04/2021. FINDINGS: Stable elevated right hemidiaphragm. No focal consolidation is seen. No large pleural effusion or pneumothorax is seen. The cardiomediastinal silhouette is normal in size and contour. There is calcified aortic atherosclerotic plaque. No acute osseous abnormality is seen. IMPRESSION: No acute pleuroparenchymal process. Dictated by: Dictated on workstation # [id number] Dict: 05/27/231143 Trans: 05/27/231148 [id number] Interpreted by: FACUNDO JUSTIN DO Electronically signed by: FACUNDO JUSTIN DO 05/27/23 1149 Departure Impression Primary Impression: Shortness of breath Additional Impression: Generalized weakness Disposition: 01 HOME, SELF-CARE Condition: Stable Departure-Patient Inst. Decision time for Depature: 13:08 Referrals: JUDITH KAUFMAN DO (PCP/Family) Primary Care Physician Patient Instructions: Chronic obstructive pulmonary disease (COPD), Generalized Weakness (DC), Quitting Smoking ED Add. Discharge Instructions: Drink plenty of clear liquids to stay well-hydrated. Continue your medications as previously directed including your breathing treatments and oxygen supplementation. Follow-up with your primary care provider as soon as possible if you continue to have symptoms or have recurrent symptoms. Return to the emergency room if you have worsening symptoms or develop new symptoms such as fever. All discharge instructions reviewed with patient and/or family. Voiced understanding. AILYN AUSTIN MD May 27, 2023 12:39
[2023-05-27 12:42] LABS: FREE T4 (FREE THYROXINE) 1.2 NG/DL (0.70-1.48)
[2023-05-27 13:21] VITALS: BP 168/90
== END 2023-05-27 13:21 | disposition home or self-care (01) ==
LOC: EDUNIT# 10:38 → ER 10:39
DX: R06.02 Shortness of breath (principal); R53.1 Weakness; G47.30 Sleep apnea, unspecified; J44.9 Chronic obstructive pulmonary disease, unspecified; F17.210 Nicotine dependence, cigarettes, uncomplicated; E66.9 Obesity, unspecified; Z68.38 Body mass index [BMI] 38.0-38.9, adult; Z28.311 Partially vaccinated for COVID-19; Z99.81 Dependence on supplemental oxygen; Z99.89 Dependence on other enabling machines and devices
CPT/HCPCS: 36415; 71046; 80053; 81000; 83735; 83880; 84439; 84443; 85025; 93041